=== PATIENT | male | born 1955 | race Caucasian/White ===

== ENCOUNTER 2018-09-10 12:37 | Inpatient (IN) | payer SELFPAY, MEDICAID ==
[2018-09-10 13:18] LABS: VENOUS BASE EXCESS -4.8 (-2.0-2.0); VENOUS HCO3 21.8 MEQ/L (23.0-27.0); VENOUS O2 SATURATION 53.2 % (60.0-80.0); VENOUS PARTIAL PRESSURE CO2 46.3 mmHg (38.0-50.0); VENOUS PARTIAL PRESSURE O2 31.4 mmHg (30.0-50.0); VENOUS PH 7.291 UNITS (7.330-7.430); VENOUS STANDARD HCO3 19.7 MEQ/L; VENOUS TOTAL CO2 23.2 MEQ/L (24.0-28.0)
[2018-09-10 13:26] LABS: BASO # 0.1 10^3/uL (0.0-0.2); BASO % 0.7 % (0.0-1.0); EOS % 0.1 % (0.0-3.0); HEMATOCRIT 36.5 % (42.0-52.0); HEMOGLOBIN 11.6 g/dl (13.5-17.5); IMMATURE GRANULOCYTE % 0.4 % (0-3.0); LYMPH # 0.9 10^3/uL (1.5-4.5); LYMPH % 8.5 % (24.0-44.0); MEAN CORPUSCULAR HEMOGLOBIN 31.8 pg (27.0-33.0); MEAN CORPUSCULAR HGB CONC 31.8 g/dl (32.0-36.5); MONO # 0.6 10^3/uL (0.0-0.8); MONO % 5.8 % (0.0-5.0); NEUTROPHILS # 8.6 10^3/uL (1.8-7.7); NEUTROPHILS % 84.5 % (36.0-66.0); PLATELET COUNT, AUTOMATED 255 10^3/uL (150-450); RED BLOOD COUNT 3.65 10^6/uL (4.30-6.10); RED CELL DISTRIBUTION WIDTH 14.2 % (11.5-14.5); WHITE BLOOD COUNT 10.1 10^3/uL (4.0-10.0)
[2018-09-10] MEDS: dexameTHASONE 20 MG/5 ML VIAL (J1100) IV (13:37)
[2018-09-10] MEDS: IPRATROPIUM 0.5MG/ALBUTEROL 2.5MG INH SOL UD 3ML (DUONEB)(J7620) NEB (13:37)
[2018-09-10 14:02] LABS: ALBUMIN 3.3 GM/DL (3.2-5.2); ALBUMIN/GLOBULIN RATIO 0.97 (1.00-1.93); ALKALINE PHOSPHATASE 102 U/L (45-117); ALT/SGPT 33 U/L (12-78); ANION GAP 9 MEQ/L (8-16); AST/SGOT 26 U/L (7-37); BILIRUBIN,DIRECT 0.1 MG/DL (0.0-0.2); BILIRUBIN,TOTAL 0.4 MG/DL (0.2-1.0); BLOOD UREA NITROGEN 53 MG/DL (7-18); CALCIUM LEVEL 8.8 MG/DL (8.8-10.2); CARBON DIOXIDE LEVEL 22 MEQ/L (21-32); CHLORIDE LEVEL 114 MEQ/L (98-107); CPK CREATINE PHOSPHOKINASE 477 U/L (39-308); CREATININE FOR GFR 4.14 MG/DL (0.70-1.30); GLOMERULAR FILTRATION RATE 15.6 (>49); GLUCOSE, FASTING 93 MG/DL (70-100); MB/CK RELATIVE INDEX 2.18 (< OR =4); NT-PRO BNP 89874 PG/ML (<125); POTASSIUM SERUM 5.3 MEQ/L (3.5-5.1); SODIUM LEVEL 145 MEQ/L (136-145); TOTAL PROTEIN 6.7 GM/DL (6.4-8.2); TROPONIN I 0.03 NG/ML (< 0.10)
[2018-09-10] MEDS: AZITHROMYCIN 250 MG TAB PO (15:04)
[2018-09-10] MEDS: FUROSEMIDE 40 MG/4 ML VIAL (J1940) IV (15:04)
[2018-09-10] MEDS: FUROSEMIDE 100 MG/10 ML VIAL (J1940) IV (17:09)
[2018-09-10] MEDS: ISOSORBIDE DIN. (ISORDIL) 20 MG TAB PO ×2 (17:12→23:27)
[2018-09-10] MEDS: **hydrALAZINE** 10 MG TAB PO ×2 (17:13→23:27)
[2018-09-10 18:48] LABS: BASO % 0.2 % (0.0-1.0); HEMATOCRIT 34.1 % (42.0-52.0); HEMOGLOBIN 10.9 g/dl (13.5-17.5); IMMATURE GRANULOCYTE % 0.6 % (0-3.0); LYMPH % 2.9 % (24.0-44.0); MEAN CORPUSCULAR HEMOGLOBIN 31.5 pg (27.0-33.0); MEAN CORPUSCULAR VOLUME 98.6 fl (80.0-96.0); MONO # 0.1 10^3/uL (0.0-0.8); NEUTROPHILS # 8.5 10^3/uL (1.8-7.7); NEUTROPHILS % 95.3 % (36.0-66.0); PLATELET COUNT, AUTOMATED 236 10^3/uL (150-450); RED BLOOD COUNT 3.46 10^6/uL (4.30-6.10); RED CELL DISTRIBUTION WIDTH 14.4 % (11.5-14.5); WHITE BLOOD COUNT 8.9 10^3/uL (4.0-10.0)
[2018-09-10 19:04] LABS: ESTIMATED AVERAGE GLUCOSE 97 MG/DL (60-110)
[2018-09-10 19:15] LABS: ANION GAP 10 MEQ/L (8-16); BLOOD UREA NITROGEN 55 MG/DL (7-18); CALCIUM LEVEL 8.9 MG/DL (8.8-10.2); CARBON DIOXIDE LEVEL 19 MEQ/L (21-32); CHLORIDE LEVEL 115 MEQ/L (98-107); CREATININE FOR GFR 4.12 MG/DL (0.70-1.30); GLOMERULAR FILTRATION RATE 15.7 (>49); GLUCOSE, FASTING 104 MG/DL (70-100); POTASSIUM SERUM 5.2 MEQ/L (3.5-5.1); SODIUM LEVEL 144 MEQ/L (136-145)
[2018-09-10 19:18] LABS: CHOLESTEROL LEVEL 133 MG/DL (<200); CHOLESTEROL RISK RATIO 3.325 (<5); HDL CHOLESTEROL 40 MG/DL (>40); LDL CHOLESTEROL 81 MG/DL (<100); NON-HDL-C 93 MG/DL; TRIGLYCERIDES LEVEL 59 MG/DL (<150)
[2018-09-10 19:23] LABS: TROPONIN I 0.04 NG/ML (< 0.10)
[2018-09-10 19:49] LABS: POSITIVE DIFF POS FLAG
[2018-09-10 19:50] LABS: LYMPH # 0.3 10^3/uL (1.5-4.5)
[2018-09-10] MEDS: TAMSULOSIN 0.4 MG CAP PO (20:50)
[2018-09-10 22:49] LABS: APPEARANCE, URINE HAZY (CLEAR); BACTERIA, URINE AUTO 1+ (NEGATIVE); BILIRUBIN, URINE AUTO NEGATIVE (NEGATIVE); BLOOD, URINE BLOOD 1+ (NEGATIVE); COLOR, URINE YELLOW (YELLOW); GLUCOSE, URINE (UA) AUTO NEGATIVE (NEGATIVE); KETONE, URINE AUTO NEGATIVE (NEGATIVE); LEUKOCYTE ESTERASE, URINE AUTO 2+ (NEGATIVE); MUCUS, URINE SMALL (NEGATIVE); NITRITE, URINE AUTO NEGATIVE (NEGATIVE); PROTEIN, URINE AUTO 1+ mg/dL (NEGATIVE); RBC, URINE AUTO 15 /HPF (0-3); SPECIFIC GRAVITY URINE AUTO 1.004 (1.002-1.035); SQUAMOUS EPITHELIAL CELL UR AU 0 /HPF (0-6); TRANSITIONAL EPITHELIAL AUTO <1 /HPF; UROBILINOGEN, URINE AUTO 0.2 mg/dL (0.0-2.0); WBC, URINE AUTO 38 /HPF (0-3)
[2018-09-10 23:06] LABS: CREATININE,RANDOM URINE 14.1 MG/DL
[2018-09-10 23:06] LABS: TOTAL PROTEIN,RANDOM URINE 50.6 MG/DL (0.0-12.0)
[2018-09-10] MEDS: cefTRIAXone SOD 1 GM in D5W MINI-BAG PLUS 50 ML IV (23:27)
[2018-09-11] MEDS: **hydrALAZINE** 10 MG TAB PO (06:10)
[2018-09-11] MEDS: ISOSORBIDE DIN. (ISORDIL) 20 MG TAB PO (06:11)
[2018-09-11 08:18] LABS: ANION GAP 11 MEQ/L (8-16); BLOOD UREA NITROGEN 67 MG/DL (7-18); CALCIUM LEVEL 8.5 MG/DL (8.8-10.2); CARBON DIOXIDE LEVEL 21 MEQ/L (21-32); CHLORIDE LEVEL 110 MEQ/L (98-107); CREATININE FOR GFR 4.33 MG/DL (0.70-1.30); GLOMERULAR FILTRATION RATE 14.9 (>49); GLUCOSE, FASTING 96 MG/DL (70-100); HEPATITIS B SURFACE ANTIBODY NEGATIVE (POSITIVE); HEPATITIS B SURFACE ANTIGEN NEGATIVE (NEGATIVE); POTASSIUM SERUM 5.1 MEQ/L (3.5-5.1); SODIUM LEVEL 142 MEQ/L (136-145)
[2018-09-11 08:34] LABS: HEMATOCRIT 32.7 % (42.0-52.0); HEMOGLOBIN 10.5 g/dl (13.5-17.5); MEAN CORPUSCULAR HEMOGLOBIN 31.5 pg (27.0-33.0); MEAN CORPUSCULAR HGB CONC 32.1 g/dl (32.0-36.5); MEAN CORPUSCULAR VOLUME 98.2 fl (80.0-96.0); PLATELET COUNT, AUTOMATED 228 10^3/uL (150-450); RED BLOOD COUNT 3.33 10^6/uL (4.30-6.10); RED CELL DISTRIBUTION WIDTH 14.1 % (11.5-14.5); WHITE BLOOD COUNT 10.3 10^3/uL (4.0-10.0)
[2018-09-11 08:36] LABS: HEPATITIS B CORE ANTIBODY IGM NEGATIVE (NEGATIVE); HEPATITIS C VIRUS ABY INDEX 0.1 INDEX (<0.8)
[2018-09-11] MEDS: AZITHROMYCIN 250 MG TAB PO (08:39)
[2018-09-11] MEDS ORDERED: FUROSEMIDE 40 MG/4 ML VIAL (J1940) IV (09:00)
[2018-09-11 12:33] LABS: FERRITIN 195 NG/ML (26-388); IRON (FE) 21 UG/DL (65-175); PERCENT SATURATION 10.7 % (19.7-50.0); TOTAL IRON BINDING CAPACITY 197 UG/DL (250-450)
[2018-09-11] MEDS: FERROUS GLUCONATE 324 MG TAB PO (14:27)
[2018-09-11] MEDS: TAMSULOSIN 0.4 MG CAP PO (20:21)
[2018-09-11] MEDS: cefTRIAXone SOD 1 GM in D5W MINI-BAG PLUS 50 ML IV (20:21)
[2018-09-12 05:55] LABS: HEMATOCRIT 33.7 % (42.0-52.0); HEMOGLOBIN 10.8 g/dl (13.5-17.5); MEAN CORPUSCULAR HEMOGLOBIN 30.8 pg (27.0-33.0); PLATELET COUNT, AUTOMATED 235 10^3/uL (150-450); RED BLOOD COUNT 3.51 10^6/uL (4.30-6.10); RED CELL DISTRIBUTION WIDTH 13.9 % (11.5-14.5); WHITE BLOOD COUNT 8.9 10^3/uL (4.0-10.0)
[2018-09-12 06:13] LABS: ANION GAP 10 MEQ/L (8-16); BLOOD UREA NITROGEN 71 MG/DL (7-18); CALCIUM LEVEL 8.5 MG/DL (8.8-10.2); CARBON DIOXIDE LEVEL 21 MEQ/L (21-32); CHLORIDE LEVEL 111 MEQ/L (98-107); CREATININE FOR GFR 4.19 MG/DL (0.70-1.30); GLOMERULAR FILTRATION RATE 15.4 (>49); GLUCOSE, FASTING 79 MG/DL (70-100); POTASSIUM SERUM 4.6 MEQ/L (3.5-5.1); SODIUM LEVEL 142 MEQ/L (136-145)
[2018-09-12 08:06] LABS: HEPATITIS B CORE ANTIBODY IGG Negative (Negative)
[2018-09-12] MEDS: FERROUS GLUCONATE 324 MG TAB PO (08:54)
[2018-09-12] MEDS: FLUBLOK(EGG FREE)(QUAD)INFLUENZA VACC 0.5ML SYRINGE (90682)18YRS&OLDER IM (08:55)
[2018-09-12] MEDS ORDERED: INFLUENZA VIRUS VACCINE HIGH DOSE 0.5 ML SYRINGE (90662) IM (09:00)
[2018-09-12] MEDS: CARVedilol 3.125 MG TAB PO ×2 (10:31→20:31)
[2018-09-12 11:17] LABS: TOTAL PROTEIN 6.1 GM/DL (6.4-8.2)
[2018-09-12 11:25] LABS: FOLATE 14.3 NG/ML (>5.4); VITAMIN B12 LEVEL 249 PG/ML (247-911)
[2018-09-12] MEDS: HEPARIN SOD (PORCINE) 5000 UNITS/ML VIAL SQ ×2 (13:45→20:31)
[2018-09-12] MEDS: TAMSULOSIN 0.4 MG CAP PO (20:31)
[2018-09-12] MEDS: cefTRIAXone SOD 1 GM in D5W MINI-BAG PLUS 50 ML IV (20:31)
[2018-09-13] MEDS: ACETAMINOPHEN 500 MG TAB PO (04:30)
[2018-09-13 06:02] LABS: HEMATOCRIT 35.1 % (42.0-52.0); HEMOGLOBIN 11.4 g/dl (13.5-17.5); MEAN CORPUSCULAR HEMOGLOBIN 31.5 pg (27.0-33.0); MEAN CORPUSCULAR HGB CONC 32.5 g/dl (32.0-36.5); PLATELET COUNT, AUTOMATED 248 10^3/uL (150-450); RED BLOOD COUNT 3.62 10^6/uL (4.30-6.10); RED CELL DISTRIBUTION WIDTH 13.7 % (11.5-14.5); WHITE BLOOD COUNT 7.4 10^3/uL (4.0-10.0)
[2018-09-13 06:27] LABS: ANION GAP 9 MEQ/L (8-16); BLOOD UREA NITROGEN 67 MG/DL (7-18); CALCIUM LEVEL 8.4 MG/DL (8.8-10.2); CARBON DIOXIDE LEVEL 21 MEQ/L (21-32); CHLORIDE LEVEL 109 MEQ/L (98-107); CREATININE FOR GFR 3.86 MG/DL (0.70-1.30); GLUCOSE, FASTING 83 MG/DL (70-100); POTASSIUM SERUM 4.7 MEQ/L (3.5-5.1); SODIUM LEVEL 139 MEQ/L (136-145)
[2018-09-13] MEDS: CARVedilol 3.125 MG TAB PO (08:07)
[2018-09-13] MEDS: FERROUS GLUCONATE 324 MG TAB PO (08:07)
[2018-09-13] MEDS: HEPARIN SOD (PORCINE) 5000 UNITS/ML VIAL SQ (08:08)
[2018-09-13] MEDS ORDERED: SLF 3 ML SYR IV ×2 (11:00→14:00)
[2018-09-13 11:59] LABS: ALBUMIN 3.36 GM/DL (3.29-5.55); ALPHA-1-GLOBULIN % 7.5 % (2.9-4.9); ALPHA-1-GLOBULINS 0.46 GM/DL (0.17-0.41); ALPHA-2-GLOBULINS 0.92 GM/DL (0.42-0.99); BETA-1-GLOBULINS % 4.7 % (4.7-7.2); BETA-2-GLOBULINS % 4.9 % (3.2-6.5); GAMMA GLOBULIN % 12.9 % (11.1-18.8)
[2018-09-13 12:00] LABS: BETA-1-GLOBULINS 0.29 GM/DL (0.28-0.60); GAMMA GLOBULINS 0.79 GM/DL (0.65-1.58)
[2018-09-13 14:14] LABS: PSA TOTAL 1.1 ng/mL (0.0-4.0)
== END 2018-09-13 15:00 | disposition home or self-care (01) | DRG 460 ==
LOC: M ED 12:37 → M ED INP 15:14 → M PCU 17:01
DX: N17.9 Acute kidney failure, unspecified (principal); I50.21 Acute systolic (congestive) heart failure; I42.0 Dilated cardiomyopathy; E87.5 Hyperkalemia; I13.0 Hypertensive heart and chronic kidney disease with heart failure and stage 1 through stage 4 chronic kidney disease, or unspecified chronic kidney disease; N40.1 Benign prostatic hyperplasia with lower urinary tract symptoms; R33.9 Retention of urine, unspecified; N47.2 Paraphimosis; D63.1 Anemia in chronic kidney disease; Z79.899 Other long term (current) drug therapy; B97.29 Other coronavirus as the cause of diseases classified elsewhere; I44.7 Left bundle-branch block, unspecified; N13.30 Unspecified hydronephrosis

== ENCOUNTER → 2018-09-25 | Outpatient (CLI) | payer MEDICAID ==
[~2018-09-25] MED LIST: CARV3.12 PO; FERR32TA PO; FLOM0.4C39 PO; HYDR100T PO; HYDR10TAB PO; MUCI600T31 PO; ROCA0.25 PO; VITA-112 PO; VITA100054 PO
[2018-09-25 18:15] LABS: BASO # 0.1 10^3/uL (0.0-0.2); BASO % 0.7 % (0.0-1.0); EOS # 0.2 10^3/uL (0.0-0.50); EOS % 1.5 % (0.0-3.0); HEMATOCRIT 36.4 % (42.0-52.0); HEMOGLOBIN 11.5 g/dl (13.5-17.5); LYMPH # 1.5 10^3/uL (1.5-4.5); LYMPH % 13.6 % (24.0-44.0); MEAN CORPUSCULAR HEMOGLOBIN 31.6 pg (27.0-33.0); MEAN CORPUSCULAR HGB CONC 31.6 g/dl (32.0-36.5); MONO # 0.7 10^3/uL (0.0-0.8); MONO % 6.1 % (0.0-5.0); NEUTROPHILS # 8.3 10^3/uL (1.8-7.7); NEUTROPHILS % 77.8 % (36.0-66.0); PLATELET COUNT, AUTOMATED 351 10^3/uL (150-450); RED BLOOD COUNT 3.64 10^6/uL (4.30-6.10); WHITE BLOOD COUNT 10.7 10^3/uL (4.0-10.0)
[2018-09-25 18:17] LABS: INR 0.95; PROTHROMBIN TIME 12.7 SECONDS (12.1-14.4)
[2018-09-25 18:18] LABS: PARTIAL THROMBOPLASTIN TIME 36.9 SECONDS (25.4-37.6)
[2018-09-25 18:19] LABS: ALBUMIN 3.6 GM/DL (3.2-5.2); BILIRUBIN,TOTAL 0.3 MG/DL (0.2-1.0); CALCIUM LEVEL 9.1 MG/DL (8.8-10.2); CREATININE FOR GFR 3.78 MG/DL (0.70-1.30); GLOMERULAR FILTRATION RATE 17.4 (>49); POTASSIUM SERUM 6.6 MEQ/L (3.5-5.1)
== END ==
LOC: M SMT 12:58
PROVIDERS: ATTEND Urology Pediatric Urology
DX: N32.89 Other specified disorders of bladder (principal)

== ENCOUNTER → 2018-09-25 | Outpatient (REF) | payer MEDICAID | LOC: M LABSMT 13:28 | PROVIDERS: ATTEND Urology Pediatric Urology | DX: N32.89 Other specified disorders of bladder (principal) ==

== ENCOUNTER 2018-09-26 13:14 | Emergency (ER) | payer MEDICAID ==
[~2018-09-26] VITALS: Ht 167.6 cm; Wt 61.2 kg
[~2018-09-26 13:14] MED LIST changes: -HYDR100T PO; -HYDR10TAB PO; -ROCA0.25 PO; -VITA-112 PO; -VITA100054 PO
[2018-09-26] MEDS ORDERED: NS 1,000 ML IV SCH (13:29)
[2018-09-26] MEDS ORDERED: VITA100054 PO (13:54)
[2018-09-26] MEDS ORDERED: HYDR100T PO (13:54)
[2018-09-26 14:06] LABS: BASO # 0.1 10^3/uL (0.0-0.2); BASO % 0.7 % (0.0-1.0); EOS # 0.2 10^3/uL (0.0-0.50); EOS % 3.5 % (0.0-3.0); HEMATOCRIT 32.9 % (42.0-52.0); HEMOGLOBIN 10.8 g/dl (13.5-17.5); LYMPH # 1.3 10^3/uL (1.5-4.5); LYMPH % 18.3 % (24.0-44.0); MEAN CORPUSCULAR HEMOGLOBIN 32.5 pg (27.0-33.0); MEAN CORPUSCULAR HGB CONC 32.8 g/dl (32.0-36.5); MEAN CORPUSCULAR VOLUME 99.1 fl (80.0-96.0); MONO # 0.5 10^3/uL (0.0-0.8); MONO % 6.6 % (0.0-5.0); NEUTROPHILS # 4.9 10^3/uL (1.8-7.7); NEUTROPHILS % 70.6 % (36.0-66.0); PLATELET COUNT, AUTOMATED 281 10^3/uL (150-450); RED BLOOD COUNT 3.32 10^6/uL (4.30-6.10); WHITE BLOOD COUNT 6.9 10^3/uL (4.0-10.0)
[2018-09-26] MEDS ORDERED: HYDR10TAB PO (14:12)
[2018-09-26] MEDS ORDERED: VITA-112 PO (14:12)
[2018-09-26] MEDS ORDERED: ROCA0.25 PO (14:12)
[2018-09-26 14:33] LABS: CALCIUM LEVEL 8.5 MG/DL (8.8-10.2); CREATININE FOR GFR 4.06 MG/DL (0.70-1.30); POTASSIUM SERUM 5.1 MEQ/L (3.5-5.1)
[2018-09-26] MEDS ORDERED: PATIROMER SORBITEX CALCIUM 8.4 GM POWDER PACKET (VELTASSA) PO ONE (15:15)
[2018-09-26 15:49] VITALS: BP 172/96
[2018-09-27] MEDS ORDERED: PATIROMER SORBITEX CALCIUM 8.4 GM POWDER PACKET (VELTASSA) PO SCH (12:00)
--- NOTE | 2018-09-27 13:54 | ECGEPIP ---
Stationary ECG Study [facility] - ED Test Date: 2018-09-26 Pat Name: MARY WONG Department: Room: - Gender: M Dope Pourer: : 1955 Requested By: CIARA Santiago Order Number: [id number] Reading MD: Kyara Cardenas Measurements Intervals [place] Rate: 65 P: 73 [place]: 188 QRS: 79 QRSD: 153 T: 262 QT: 470 QTc: 490 Interpretive Statements SINUS RHYTHM LEFT BUNDLE BRANCH BLOCK DECREASED RATE 09/10/18 Electronically Signed On 09-27-2018 13:54:43 EST by Kyara Cardenas
== END 2018-09-26 15:51 | disposition home or self-care (01) ==
LOC: M ED 13:14
DX: E87.5 Hyperkalemia (principal); I44.7 Left bundle-branch block, unspecified; I50.9 Heart failure, unspecified; N40.0 Benign prostatic hyperplasia without lower urinary tract symptoms; D64.9 Anemia, unspecified; I42.0 Dilated cardiomyopathy; Z72.0 Tobacco use; Z79.899 Other long term (current) drug therapy

== ENCOUNTER → 2018-09-30 | Outpatient (CLI) | payer MEDICAID ==
[~2018-09-30] MED LIST changes: +HYDR100T PO; +HYDR10TAB PO; +ROCA0.25 PO; +VITA-112 PO; +VITA100054 PO
--- NOTE | 2018-09-30 16:27 | REP ---
RENAL ULTRASOUND: HISTORY: Renal failure. COMPARISON: 09/10/2018. The kidneys are normal in echogenicity. The right kidney measures 4.5 cm in transverse x 3.2 cm in AP x 8.7 cm in cephalocaudal dimensions. The left kidney measures 4.1 cm in transverse x 4.4 cm in AP x 7.3 cm in cephalocaudal dimensions. There is bilateral severe hydronephrosis. There is bilateral mild hydroureter. There is no mass. The bladder wall is thickened with trabeculations. Debris is present in the bladder. Bladder diverticula are present. Pre void volume is 255 cubic centimeters. Postvoid volume is 248 cubic centimeters. IMPRESSION: 1. Bilateral hydronephrosis and hydroureter. 2. The urinary bladder wall is thickened and trabeculated. Debris is present in the urinary bladder. Electronically Signed by Garfield Lopez MD 09/30/2018 04:28 P
== END ==
LOC: M RAD 12:51
PROVIDERS: ATTEND Urology Pediatric Urology
DX: N32.89 Other specified disorders of bladder (principal); N32.3 Diverticulum of bladder; N47.1 Phimosis; N47.2 Paraphimosis; R33.9 Retention of urine, unspecified; N17.9 Acute kidney failure, unspecified; N18.4 Chronic kidney disease, stage 4 (severe); N13.30 Unspecified hydronephrosis

== ENCOUNTER → 2018-10-04 | Outpatient (CLI) | payer MEDICAID ==
[~2018-10-04] MED LIST changes: +FUROSEMIDE 20 MG/2 ML VIAL (J1940) As Ordered ONE
--- NOTE | 2018-10-04 16:43 | REP ---
Nuclear renal scintigraphy with differential flow and function analysis and post Lasix renography: History: Renal failure. Bilateral hydronephrosis. Technique: 8.8 mCi technetium 99m MAG3 is injected and posterior flow and excretory phase images are acquired. Renal cortical regions of interest are drawn and time activity curves are plotted for renal functional analysis. 20 mg of intravenous Lasix is given and post Lasix renography is acquired. Scintigraphic findings: Posterior flow study shows symmetrically poor visualization of the renal beds consistent with drawn out bolus and/or delayed perfusion bilaterally. Excretory phase images show symmetric heterogeneous renal uptake. The intrarenal collecting systems begin to label on the 2 to 3 minute images bilaterally and bilateral hydronephrosis is confirmed on subsequent images. Differential renal function analysis is essentially normal with 54% of overall renal cortical counts coming from the left kidney and 46% from the right. The time to peak activity is abnormal bilaterally consistent with the bilateral hydronephrosis, measured at 29 minutes on the left and 28 minutes on the right. Time to half max activity could not be calculated as the renal excretion curves are rising bilaterally. Post Lasix renography curves are bilaterally flat. The ureters are faintly visualized and appear dilated. There is uptake in the bladder. Postvoid images show retained bladder uptake consistent with postvoid residual. Dilated distal ureters. Impression: Bilateral hydronephrosis with a somewhat delayed or sluggish perfusion bilaterally. Lack of clearance post Lasix confirms obstructive uropathy bilaterally. Pre and postvoid images show no significant bladder emptying. Electronically Signed by Rodolfo Hicks MD 10/04/2018 08:02 P
== END ==
LOC: M RAD 12:30
PROVIDERS: ATTEND Urology Pediatric Urology
DX: N18.9 Chronic kidney disease, unspecified (principal); N13.30 Unspecified hydronephrosis

== ENCOUNTER 2018-10-07 08:53 | Outpatient (CLI) | payer MEDICAID ==
[~2018-10-07 08:53] MED LIST changes: -FUROSEMIDE 20 MG/2 ML VIAL (J1940) As Ordered ONE
[2018-10-07] MEDS ORDERED: cefTRIAXone SOD 1 GM VIAL (J0696) As Ordered ONE (10:12)
[2018-10-07] MEDS ORDERED: LIDOCAINE 1% MDV 20ML VIAL As Ordered ONE (10:12)
[2018-10-07] MEDS ORDERED: ISOVUE-300 61% 50ML VIAL (Q9967) As Ordered ONE (10:13)
[2018-10-07] MEDS ORDERED: MIDAZOLAM INJ 2 MG/2 ML VIAL (J2250) As Ordered ONE (10:15)
[2018-10-07] MEDS ORDERED: fentaNYL 100 MCG/2 ML INJECTION (J3010) As Ordered ONE (10:15)
[2018-10-07 10:24] LABS: CALCIUM LEVEL 7.8 MG/DL (8.8-10.2); CREATININE FOR GFR 5.32 MG/DL (0.70-1.30); GLOMERULAR FILTRATION RATE 11.7 (>49); POTASSIUM SERUM 4.4 MEQ/L (3.5-5.1)
[2018-10-07] MEDS ORDERED: ONDANSETRON 4MG/2ML VIAL (J2405) IV PRN (12:00)
[2018-10-07] MEDS ORDERED: LR 1,000 ML IV SCH (12:00)
[2018-10-07] MEDS ORDERED: fentaNYL 100 MCG/2 ML INJECTION (J3010) IV PRN (12:00)
[2018-10-07] MEDS ORDERED: PERCOCET 5MG/325MG TAB PO PRN (12:00)
[2018-10-07 12:13] VITALS: BP 160/77
--- NOTE | 2018-10-07 19:12 | REP ---
BILATERAL NEPHROSTOMY DRAINAGE CATHETER INSERTION Procedure was performed under the direct supervision of Dr. Hicks. The patient has a history of bilateral hydronephrosis and hydroureter seen on a previous renal ultrasound dated 09/30/2017. The risks and benefits of the procedure were explained to the patient and informed consent was obtained. Medication: 1 gram of Rocephin Anesthetic: 9 ml of 1% lidocaine Estimated blood loss: Less than 2 ml Fluoroscopy time: 4.5 minutes Contrast: 25 ml of Isovue 300 Anesthesia was present throughout the case for sedation and pain control. The patient was brought into the interventional suite and placed on the table in the prone position. A time out was performed. The right and left renal collecting systems were localized using ultrasound guidance. The skin was prepped and draped in a sterile fashion. 1% lidocaine was used as a local anesthetic. The right kidney was addressed first. The right renal collecting system was localized using ultrasound guidance. Using ultrasound guidance a 21-gauge needle was inserted and advanced into the collecting system.. A nephrostogram was performed. A 0.018 guidewire was inserted and advanced into the renal pelvis. The needle was removed and a 4.5 Tongan dilator and sheath was inserted over the guide wire. 10 ml of urine was withdrawn and sent to the lab for analysis. The guidewire was removed and a 0.035 guidewire was inserted and advanced into the ureter. The sheath was removed and an 8-Tongan Skater APDL catheter was inserted. The loop of the catheter was formed in the renal pelvis. A nephrostogram was again performed. Images demonstrate no evidence of mass or filling defect. The ureter is seen to the level of the vascular crossing. The distal third of the ureter is not opacified. There is dilation of the proximal and mid ureter. The left kidney was then addressed. The left renal collecting system was localized using ultrasound guidance. Using ultrasound guidance a 21-gauge needle was inserted and advanced into the collecting system. 5 ml of urine was collected and sent to the lab for analysis. A nephrostogram was performed. A 0.018 guide wire was inserted and advanced into the renal pelvis. The needle was removed and a 4.5 Tongan dilator and sheath was inserted over the guide wire. The guidewire was removed and a 0.035 guidewire was inserted into the collecting system. The sheath was removed and an 8-Tongan Skater APDL catheter was inserted over the guide wire. The loop of the catheter was formed in the renal pelvis. A nephrostogram was again performed. Images demonstrate no evidence of mass or filling defect. The ureter is seen to the level of the vascular crossing. The distal third of the ureter is not opacified. There is dilation of the proximal and mid ureter. The catheters were affixed to the skin and attached to a gravity drainage bags. Sterile dressings were applied. The patient tolerated the procedure well and there were no immediate complications. The patient will return for exchange of bilateral nephrostomy drainage catheters in 8 - 10 weeks or sooner if needed. Reviewed by JESSICA Ordaz 10/07/2018 04:22 P Electronically Signed by Rodolfo Hicks MD 10/07/2018 07:04 P
== END 2018-10-07 12:35 | disposition home or self-care (01) ==
LOC: M RADPRO 08:53
PROVIDERS: ATTEND Urology Pediatric Urology
DX: N13.30 Unspecified hydronephrosis (principal); I11.0 Hypertensive heart disease with heart failure; N18.9 Chronic kidney disease, unspecified
CPT/HCPCS: 50432; 76000; 76942; 80048; 87070; 87075; 87077; 87186; 87205; 99156; 99157; C1729; C1769; C1894; J0696; J2250; J3010; Q9967

== ENCOUNTER → 2018-10-08 | Outpatient (CLI) | payer MEDICAID ==
[~2018-10-08] MED LIST changes: +CYSTO-CONRAY II 17.2% 250ML VIAL (Q9958) As Ordered ONE
--- NOTE | 2018-10-08 17:03 | REP ---
VCUG. History: Bilateral hydronephrosis. The patient is status post bilateral percutaneous nephrostomy tube placement the previous day. Technique: The bladder was catheterized using aseptic precautions and standard technique. The bladder was filled with Cysto-Conray with a total volume of 350 mL. Multiple fluoroscopic spot radiographs were obtained. Findings: The bladder is severely trabeculated and there are multiple bladder diverticula, the largest of which is on the right. The bladder base is elevated consistent with prostate enlargement. Bilateral vesicoureteral reflux was observed, grade 1 on the right and grade 2 on the left. The left distal ureter is moderately dilated. Bilateral percutaneous nephrostomy catheters are seen. No filling defect is seen within the urinary bladder. Voiding cystourethrogram views show no urethral abnormality other than diffuse narrowing in the prostatic urethral segment. Fluoroscopy time is 0.4 minutes. Impression: Bilateral vesicoureteral reflux with elevation of the distal ureters bilaterally. Severely trabeculated bladder wall and elevated bladder base. Bladder diverticula. Electronically Signed by Rodolfo Hicks MD 10/08/2018 05:40 P
== END ==
LOC: M RADPRO 12:52
PROVIDERS: ATTEND Urology Pediatric Urology
DX: N32.89 Other specified disorders of bladder (principal); N32.3 Diverticulum of bladder; N47.1 Phimosis; N47.2 Paraphimosis; R33.9 Retention of urine, unspecified; N17.9 Acute kidney failure, unspecified; N18.4 Chronic kidney disease, stage 4 (severe); N39.8 Other specified disorders of urinary system
CPT/HCPCS: 51600; 74455; Q9958

== ENCOUNTER → 2018-10-15 | Outpatient (REF) | payer MEDICAID ==
[~2018-10-15] MED LIST changes: -CYSTO-CONRAY II 17.2% 250ML VIAL (Q9958) As Ordered ONE; +SODI200S PO
[2018-10-15 16:38] LABS: ALBUMIN 3.6 GM/DL (3.2-5.2); CREATININE FOR GFR 4.71 MG/DL (0.70-1.30); GLOMERULAR FILTRATION RATE 13.5 (>49); MAGNESIUM LEVEL 2.4 MG/DL (1.8-2.4); PHOSPHORUS LEVEL 4.9 MG/DL (2.5-4.9); POTASSIUM SERUM 5.6 MEQ/L (3.5-5.1); URIC ACID 5.6 MG/DL (3.5-7.2)
[2018-10-15 17:56] LABS: APPEARANCE, URINE CLEAR (CLEAR); BACTERIA, URINE AUTO 1+ (NEGATIVE); BILIRUBIN, URINE AUTO NEGATIVE (NEGATIVE); BLOOD, URINE BLOOD NEGATIVE (NEGATIVE); COLOR, URINE STRAW (YELLOW); GLUCOSE, URINE (UA) AUTO NEGATIVE (NEGATIVE); KETONE, URINE AUTO NEGATIVE (NEGATIVE); LEUKOCYTE ESTERASE, URINE AUTO 2+ (NEGATIVE); NITRITE, URINE AUTO NEGATIVE (NEGATIVE); PROTEIN, URINE AUTO 1+ mg/dL (NEGATIVE); RBC, URINE AUTO 2 /HPF (0-3); SPECIFIC GRAVITY URINE AUTO 1.009 (1.002-1.035); SQUAMOUS EPITHELIAL CELL UR AU 0 /HPF (0-6); UROBILINOGEN, URINE AUTO 0.2 mg/dL (0.0-2.0); WBC, URINE AUTO 8 /HPF (0-3)
[2018-10-15 18:16] LABS: BASO # 0.1 10^3/uL (0.0-0.2); BASO % 0.8 % (0.0-1.0); EOS # 0.4 10^3/uL (0.0-0.50); HEMATOCRIT 34.8 % (42.0-52.0); LYMPH # 1.8 10^3/uL (1.5-4.5); LYMPH % 19.3 % (24.0-44.0); MEAN CORPUSCULAR HEMOGLOBIN 31.9 pg (27.0-33.0); MEAN CORPUSCULAR HGB CONC 31.6 g/dl (32.0-36.5); MEAN CORPUSCULAR VOLUME 100.9 fl (80.0-96.0); MONO # 0.6 10^3/uL (0.0-0.8); MONO % 6.1 % (0.0-5.0); NEUTROPHILS # 6.5 10^3/uL (1.8-7.7); PLATELET COUNT, AUTOMATED 299 10^3/uL (150-450); RED BLOOD COUNT 3.45 10^6/uL (4.30-6.10); WHITE BLOOD COUNT 9.4 10^3/uL (4.0-10.0)
== END ==
LOC: M LABDRAW1 15:53
PROVIDERS: ATTEND Internal Medicine Nephrology
DX: N18.4 Chronic kidney disease, stage 4 (severe) (principal); D50.9 Iron deficiency anemia, unspecified

== ENCOUNTER → 2018-10-16 | Outpatient (REF) | payer MEDICAID, OTHER ==
[2018-10-16 16:11] LABS: BASO # 0.1 10^3/uL (0.0-0.2); BASO % 0.7 % (0.0-1.0); EOS # 0.4 10^3/uL (0.0-0.50); HEMATOCRIT 36.7 % (42.0-52.0); HEMOGLOBIN 12.1 g/dl (13.5-17.5); LYMPH # 1.9 10^3/uL (1.5-4.5); MEAN CORPUSCULAR HEMOGLOBIN 32.4 pg (27.0-33.0); MEAN CORPUSCULAR VOLUME 98.4 fl (80.0-96.0); MONO # 0.6 10^3/uL (0.0-0.8); MONO % 6.1 % (0.0-5.0); NEUTROPHILS % 69.6 % (36.0-66.0); PLATELET COUNT, AUTOMATED 336 10^3/uL (150-450); RED BLOOD COUNT 3.73 10^6/uL (4.30-6.10); WHITE BLOOD COUNT 10.1 10^3/uL (4.0-10.0)
[2018-10-16 16:40] LABS: ALBUMIN 3.6 GM/DL (3.2-5.2); BILIRUBIN,TOTAL 0.3 MG/DL (0.2-1.0); CALCIUM LEVEL 8.6 MG/DL (8.8-10.2); CREATININE FOR GFR 4.54 MG/DL (0.70-1.30); GLOMERULAR FILTRATION RATE 14.1 (>49); POTASSIUM SERUM 5.4 MEQ/L (3.5-5.1); TOTAL PROTEIN 7.1 GM/DL (6.4-8.2)
[2018-10-16 16:45] LABS: PTH INTACT 112.3 PG/ML (18.5-88.0)
== END ==
LOC: M SMT 15:37
PROVIDERS: ATTEND Urology Pediatric Urology
DX: N17.9 Acute kidney failure, unspecified (principal); N18.4 Chronic kidney disease, stage 4 (severe)

== ENCOUNTER 2018-11-05 07:27 | Day surgery (SDC) | payer MEDICAID, OTHER ==
[~2018-11-05] VITALS: Ht 167.6 cm; Wt 65.0 kg
[~2018-11-05 07:27] MED LIST changes: +CIPROFLOXACIN 400 MG in APPROPRIATE DILUENT 1 EA IV ONE; +GENTAMICIN 100 MG in APPROPRIATE DILUENT 1 EA IV ONE; +LR 1,000 ML IV ONE; +PIPERACILLIN/TAZOBACTAM SOD 3.375 GM in D5W MINI-BAG PLUS 50 ML IV SCH
[2018-11-05] MEDS ORDERED: GENTAMICIN 100 MG in APPROPRIATE DILUENT 1 EA IV ONE (08:15)
[2018-11-05] MEDS ORDERED: CIPROFLOXACIN 400 MG in APPROPRIATE DILUENT 1 EA IV ONE (08:15)
[2018-11-05] MEDS ORDERED: BACITRACIN OINT 30GM As Ordered ONE (09:08)
[2018-11-05] MEDS ORDERED: CONRAY-60 60% 50ML VIAL (Q9961) As Ordered ONE ×3 (09:08→10:35)
[2018-11-05] MEDS ORDERED: LIDOCAINE 2% 5ML JELLY UROJET As Ordered ONE ×2 (09:09→09:10)
[2018-11-05] MEDS ORDERED: METHYLENE BLUE 0.5% (5MG/ML) 10 ML AMP (PROVAYBLUE)(Q9968 PER 1MG) As Ordered ONE (09:48)
[2018-11-05] MEDS ORDERED: CYSTO-CONRAY II 17.2% 250ML VIAL (Q9958) As Ordered ONE (10:38)
[2018-11-05] MEDS ORDERED: HYDROmorphone HCL 2 MG/ML 1ML VIAL (J1170) As Ordered ONE (11:36)
[2018-11-05] MEDS ORDERED: fentaNYL 100 MCG/2 ML INJECTION (J3010) As Ordered ONE (11:36)
[2018-11-05] MEDS ORDERED: MIDAZOLAM INJ 2 MG/2 ML VIAL (J2250) As Ordered ONE (11:37)
[2018-11-05] MEDS ORDERED: LIDOCAINE 1% SDV INJ 30 ML VIAL As Ordered ONE (11:50)
[2018-11-05] MEDS ORDERED: SUGAMMADEX SODIUM 500 MG/5 ML VIAL (BRIDION) As Ordered ONE (12:09)
[2018-11-05] MEDS ORDERED: PROPOFOL 200 MG/20 ML VIAL As Ordered ONE (12:10)
--- NOTE | 2018-11-05 12:35 | REP ---
Retrograde pyelogram: A series of nine intraoperative fluoroscopic views are performed during bilateral ureteral stent placement. There are bilateral percutaneous nephrostomies. After placement of the right ureteral stent the proximal and distal pigtails are in satisfactory locations. Film #8 shows the left t ureteral stent with the distal pigtail in satisfactory location. The proximal pigtail appears to be in the proximal left ureter. Film #9 demonstrates the left nephrostomy tube has been removed. Fluoroscopic exposure time is 30 seconds. Fluoroscopic images are performed with last image hold technology and require no additional radiation. Electronically Signed by Isidoro Orantes MD 11/05/2018 12:27 P
[2018-11-05] MEDS ORDERED: CIPR-249 PO (13:10)
[2018-11-05] MEDS ORDERED: TYLE500T78 PO (13:10)
[2018-11-05] MEDS ORDERED: OXYB5TAB10 PO (13:10)
[2018-11-05 15:15] VITALS: BP 159/76
--- NOTE | 2018-11-06 02:35 | REP ---
Clinical: Urinary tract stent. Technique: Single supine view of the abdomen and pelvis. Findings: Bilateral ureteral stents are identified in seemingly satisfactory position. Nephrolithiasis (left greater than right) suggested. Bowel gas pattern is nonspecific. Skeletal structures demonstrate degenerative changes of the visualized thoracolumbar spine. Impression: Bilateral ureteral stents. Nephrolithiasis. Electronically Signed by Luisito Hoffmann MD 11/06/2018 02:26 A
--- NOTE | 2018-11-12 19:12 | ROOPDOC ---
[facility] Report Of Operation Report of Operation DATE OF PROCEDURE: 11/05/18 PREPROCEDURE DIAGNOSES: BILATERAL HYDROURETERAL NEPHROSIS WITH BILATERAL STENT; ENLARGED PROSTATE; PHIMOSIS; TORTUOSITY OF THE URETER. POSTPROCEDURE DIAGNOSES:MEATAL STENOSIS; S/P BILATERAL STENT PLACEMENT (7 X 22- 32CM ON RIGHT) AND (6X 22-30CM ON LEFT); 24F CREATED GRAYLING PLACEMENT VARMA TO GRAVITY;BUTTON TURP; CIRCUMCISION. PROCEDURE: BILATERAL STENT PLACEMENT (7 X 22-32CM ON RIGHT) AND (6X 22-30CM ON LEFT); 24F CREATED GRAYLING PLACEMENT VARMA TO GRAVITY;BUTTON TURPUSING 24F RESECTOSCOPE; CIRCUMCISION. CYSTOSCOPY RETROGRADE PYELOGRAM BILATERALLY; LEFT ANTEGRADE NEPHROSTOGRAM. SURGEON: KEILA CUTLER MD MPH NIRMAL ANESTHESIA: GET. ESTIMATED BLOOD LOSS: Approximately <30 mL. COMPLICATIONS: NONE. REMARKS: TRABECULATED BLADDER (SEVERELY); RIGHT URETERAL ORIFICE GAPING; LEFT URETERAL ORIFICE IS STENOTIC AND TORTUOUS; DILATED URETER; LEFT UPJ TORTUOSITY. SPECIMEN: PROSTATE TISSUE; URINE FOR CULTURE (BLADDER) DESCRIPTION OF PROCEDURE: AFTER INFORMED CONSENT PT WAS TAKEN TO THE OPERATING ROOM AT WHICH POINT THE ROUTINE TIME OUT WAS COMPLETED. THE PATIENT WAS PLACED IN THE LITHOTOMY POSITION. 24F RESECTOSCOPE WAS PLACED IN THE URETHRA AFTER MEATAL DILATION WITH MALE SOUNDS. THE RESECTOSCOPE WAS USED TO COMPLETE A LOOP/BUTTON TURP, FIRST WITH LEFT LATERAL LOBE THEN, RIGHT LATERAL LOBE AND THEN MIDDLE LOBE. FIRST WITH LOOP AND THEN BUTTON TO SMOOTH OUT THE TISSUE. A 21 F CYSTOSCOPE WAS EXCHANGED AND RIGHT URETERAL ORIFICE WAS WIDE OPEN AND POLLACK WAS PLACED RETROGRADE WAS PERFORMED THEN THE MOTION WIRE. A 7X 22-32CM STENT WAS PLACED OVER THE WIRE IN EXCHANGE FOR THE POLLAC AND ADVANCE WITHOUT PROBLEMS. THE LEFT URETERAL ORIFICE WAS MORE CHALLENGING TO SEE AND COULD ONLY BE SEEING AFTER CYSTOCONRAY HAD BLUE DYE PLACED IN THE BOTTLE AND TO GRAVITY DRAINED FROM THE NEPHROSTOMY SITE TO THE RENAL PELVIS, URETER AND THE BLADDER. THEN THE 24F [address] 10ML GRAYLING (CREATED BY CUTTING THE TIP MINUS THE BALLOON). THE VARMA DRAINED BLUE DYE AND CONTRAST. THE BLUE DYE WAS DIRECTLY VISUALIZED AND THE FLOUROSCOPY EVALUATION SHOWS THE RENAL PELVIS URETER AND BLADDER WITH CONTRAST USING ANTEGRADE NEPHROSTOGRAM DESCRIBED ABOVE. THE PATIENT WAS REPREPPED AND DRAPED FOR CIRCUMCISION. TWO CLAMPS WERE PLACED ON THE IRRITATED SKIN AND CAUTERY AT 30 CUTTING WAS USE TO CUT DORSAL LENGTH TRIPP AND CIRCUMFERENTIALLY DORSAL TO VENTRAL. HEMOSTASIS WAS ACHIEVED. 4-0 CHROMIC PLAIN GUT WITH BACITRACIN COATING THE SUTURE WAS USED TO COMPLETE A INTERRUPTED SUTURE SKIN CLOSURE. THE PATIENT TOLERATED PROCEDURE WELL AND WAS SENT TO RECOVERY ROOM IN EXCELLENT CONDITION. Keila Cutler MD Nov 05, 2018 13:11
== END 2018-11-05 15:15 | disposition home or self-care (01) ==
LOC: M SDC 07:27
PROVIDERS: ATTEND Urology Pediatric Urology
DX: N13.1 Hydronephrosis with ureteral stricture, not elsewhere classified (principal); N40.0 Benign prostatic hyperplasia without lower urinary tract symptoms; N47.1 Phimosis; I12.9 Hypertensive chronic kidney disease with stage 1 through stage 4 chronic kidney disease, or unspecified chronic kidney disease; I50.22 Chronic systolic (congestive) heart failure; D50.9 Iron deficiency anemia, unspecified; N18.5 Chronic kidney disease, stage 5; N13.9 Obstructive and reflux uropathy, unspecified; Z91.048 Other nonmedicinal substance allergy status; Z79.899 Other long term (current) drug therapy; Z87.891 Personal history of nicotine dependence
CPT/HCPCS: 52332; 52601; 54161; 74018; 74420; 87088; 87186; 88304; 88305; C1769; C2617; J0744; J1170; J1580; J2250; J3010; Q9958; Q9961; Q9968

== ENCOUNTER → 2018-11-15 | Outpatient (REF) | payer OTHER ==
[~2018-11-15] MED LIST changes: +CIPR-249 PO; -CIPROFLOXACIN 400 MG in APPROPRIATE DILUENT 1 EA IV ONE; -GENTAMICIN 100 MG in APPROPRIATE DILUENT 1 EA IV ONE; -LR 1,000 ML IV ONE; +OXYB5TAB10 PO; -PIPERACILLIN/TAZOBACTAM SOD 3.375 GM in D5W MINI-BAG PLUS 50 ML IV SCH; +TYLE500T78 PO
[2018-11-15 14:09] LABS: AMORPHOUS SEDIMENT SMALL (NEGATIVE); APPEARANCE, URINE HAZY (CLEAR); BACTERIA, URINE AUTO NEGATIVE (NEGATIVE); BILIRUBIN, URINE AUTO NEGATIVE (NEGATIVE); BLOOD, URINE BLOOD 3+ (NEGATIVE); COLOR, URINE STRAW (YELLOW); GLUCOSE, URINE (UA) AUTO NEGATIVE (NEGATIVE); KETONE, URINE AUTO NEGATIVE (NEGATIVE); LEUKOCYTE ESTERASE, URINE AUTO 3+ (NEGATIVE); NITRITE, URINE AUTO NEGATIVE (NEGATIVE); PROTEIN, URINE AUTO NEGATIVE (NEGATIVE); RBC, URINE AUTO TNTC /HPF (0-3); SPECIFIC GRAVITY URINE AUTO 1.004 (1.002-1.035); SQUAMOUS EPITHELIAL CELL UR AU 0 /HPF (0-6); UROBILINOGEN, URINE AUTO 0.2 mg/dL (0.0-2.0); WBC, URINE AUTO 42 /HPF (0-3)
== END ==
LOC: M SMT 13:04
PROVIDERS: ATTEND Urology Pediatric Urology
DX: N40.0 Benign prostatic hyperplasia without lower urinary tract symptoms (principal)

== ENCOUNTER → 2018-11-15 | Outpatient (CLI) | payer OTHER ==
--- NOTE | 2018-11-15 11:57 | REP ---
Clinical: Prostatomegaly with end-stage renal disease and bilateral hydronephrosis. Technique: Single supine view of the abdomen and pelvis. Comparison: 11/05/2018. Findings: Bilateral ureteral stents are again identified and stable satisfactory position. No obvious urinary tract calcifications are identified although evaluation is limited due to overlying bowel gas pattern. There is no evidence for bowel obstruction or perforation. No organomegaly. Skeletal structures demonstrate stable degenerative changes. Impression: Bilateral ureteral stents. Nonspecific abdominal radiograph. Electronically Signed by Luisito Hoffmann MD 11/15/2018 11:48 A
[2018-11-15 17:24] LABS: BASO # 0.1 10^3/uL (0.0-0.2); BASO % 0.8 % (0.0-1.0); EOS # 0.4 10^3/uL (0.0-0.50); EOS % 3.2 % (0.0-3.0); HEMATOCRIT 38.4 % (42.0-52.0); HEMOGLOBIN 12.2 g/dl (13.5-17.5); LYMPH # 1.9 10^3/uL (1.5-4.5); LYMPH % 14.5 % (24.0-44.0); MEAN CORPUSCULAR HEMOGLOBIN 31.8 pg (27.0-33.0); MEAN CORPUSCULAR HGB CONC 31.8 g/dl (32.0-36.5); MONO % 7.4 % (0.0-5.0); NEUTROPHILS # 9.4 10^3/uL (1.8-7.7); PLATELET COUNT, AUTOMATED 291 10^3/uL (150-450); RED BLOOD COUNT 3.84 10^6/uL (4.30-6.10); WHITE BLOOD COUNT 12.9 10^3/uL (4.0-10.0)
[2018-11-15 17:31] LABS: ALBUMIN 3.6 GM/DL (3.2-5.2); CALCIUM LEVEL 8.9 MG/DL (8.8-10.2); CREATININE FOR GFR 4.65 MG/DL (0.70-1.30); GLOMERULAR FILTRATION RATE 13.7 (>49); PHOSPHORUS LEVEL 5.7 MG/DL (2.5-4.9); POTASSIUM SERUM 5.4 MEQ/L (3.5-5.1)
[2018-11-15 17:41] LABS: PTH INTACT 77.3 PG/ML (18.5-88.0)
== END ==
LOC: M SMT 11:28
PROVIDERS: ATTEND Urology Pediatric Urology
DX: N40.0 Benign prostatic hyperplasia without lower urinary tract symptoms (principal); N18.6 End stage renal disease; N13.30 Unspecified hydronephrosis; Z96.0 Presence of urogenital implants

== ENCOUNTER → 2018-11-21 | Outpatient (CLI) | payer OTHER ==
--- NOTE | 2018-11-21 17:35 | REP ---
Clinical: Prostatomegaly. Technique: Real time pena scale and color evaluation using curved array transducer. Findings: The bilateral kidneys are atrophic and appear mildly echogenic with bilateral ureteral stents identified in the bilateral proximal ureters with bowel gas obscuring the more distal ureters through the pelvis. The kidneys are without obvious nephrolithiasis, cystic or mass lesion. Right kidney measures 8.5 x 5.2 x 3.5 cm. Left kidney measures 8.6 x 3.9 x 5.1 cm. The bladder demonstrates wall thickening with a trabeculated appearance and multiple diverticula identified consistent with changes related to outlet obstruction. Prevoid bladder measures 7.8 x 7.0 x 6.2 cm (221 ml). Postvoid bladder measures 6.0 x 4.7 x 4.6 cm (85 ml). Postvoid residual volume equals 38%. Impression: 1. Atrophic appearance the bilateral kidneys with ureteral stents noted. 2. Bladder demonstrates changes related to chronic outlet obstruction including trabeculated wall thickening and diverticulum as well as increased postvoid residual volume. Electronically Signed by Luisito Hoffmann MD 11/21/2018 05:26 P
== END ==
LOC: M RAD 09:19
PROVIDERS: ATTEND Urology Pediatric Urology
DX: N26.1 Atrophy of kidney (terminal) (principal); Z96.0 Presence of urogenital implants; N32.89 Other specified disorders of bladder

== ENCOUNTER → 2018-12-10 | Outpatient (REF) | payer OTHER ==
[2018-12-10 14:59] LABS: PERCENT SATURATION 31.6 % (19.7-50.0)
[2018-12-10 15:04] LABS: FOLATE 17.6 NG/ML (>5.4)
== END ==
LOC: M LAB REF 13:29
PROVIDERS: ATTEND Internal Medicine Nephrology
DX: D64.9 Anemia, unspecified (principal)

== ENCOUNTER → 2018-12-17 | Outpatient (REF) | payer OTHER ==
[2018-12-17 14:36] LABS: AMORPHOUS SEDIMENT SMALL (NEGATIVE); APPEARANCE, URINE CLOUDY (CLEAR); BACTERIA, URINE AUTO 1+ (NEGATIVE); BILIRUBIN, URINE AUTO NEGATIVE (NEGATIVE); BLOOD, URINE BLOOD 3+ (NEGATIVE); COLOR, URINE RED (YELLOW); GLUCOSE, URINE (UA) AUTO NEGATIVE (NEGATIVE); KETONE, URINE AUTO NEGATIVE (NEGATIVE); LEUKOCYTE ESTERASE, URINE AUTO 3+ (NEGATIVE); NITRITE, URINE AUTO NEGATIVE (NEGATIVE); PROTEIN, URINE AUTO 2+ mg/dL (NEGATIVE); RBC, URINE AUTO 50 /HPF (0-3); SPECIFIC GRAVITY URINE AUTO 1.006 (1.002-1.035); SQUAMOUS EPITHELIAL CELL UR AU 0 /HPF (0-6); UROBILINOGEN, URINE AUTO 0.2 mg/dL (0.0-2.0); WBC, URINE AUTO TNTC /HPF (0-3)
== END ==
LOC: M SMT 13:04
PROVIDERS: ATTEND Nurse Practitioner Family
DX: R31.9 Hematuria, unspecified (principal)

== ENCOUNTER → 2018-12-18 | Outpatient (REF) | payer OTHER ==
[2018-12-18 18:25] LABS: APPEARANCE, URINE CLEAR (CLEAR); BACTERIA, URINE AUTO 1+ (NEGATIVE); BILIRUBIN, URINE AUTO NEGATIVE (NEGATIVE); BLOOD, URINE BLOOD 2+ (NEGATIVE); COLOR, URINE RED (YELLOW); GLUCOSE, URINE (UA) AUTO NEGATIVE (NEGATIVE); KETONE, URINE AUTO NEGATIVE (NEGATIVE); LEUKOCYTE ESTERASE, URINE AUTO 3+ (NEGATIVE); MUCUS, URINE SMALL (NEGATIVE); NITRITE, URINE AUTO NEGATIVE (NEGATIVE); PROTEIN, URINE AUTO 1+ mg/dL (NEGATIVE); RBC, URINE AUTO 52 /HPF (0-3); SPECIFIC GRAVITY URINE AUTO 1.009 (1.002-1.035); SQUAMOUS EPITHELIAL CELL UR AU 0 /HPF (0-6); UROBILINOGEN, URINE AUTO 0.2 mg/dL (0.0-2.0); WBC, URINE AUTO 128 /HPF (0-3)
== END ==
LOC: M SMT 17:14
PROVIDERS: ATTEND Nurse Practitioner Family
DX: R31.9 Hematuria, unspecified (principal)

== ENCOUNTER → 2018-12-23 | Outpatient (CLI) | payer OTHER ==
[~2018-12-23] MED LIST changes: +AMPI500C9 PO; +CARV6.25 PO
--- NOTE | 2018-12-24 10:01 | REP ---
Clinical: Retained the ureteral stent. Technique: Single supine view of the abdomen and pelvis. Findings: A left ureteral stent is identified with position cannot be verified and the distal pigtail may be within the ureter and not within the bladder based on its relatively superior position in the pelvis. Moderate fecal stasis noted throughout the abdomen and pelvis. No organomegaly. Small calcifications within the pelvis are nonspecific and may represent phleboliths versus ureteroliths. Skeletal structures are intact. Impression: 1. Left-sided ureteral stent which may have the distal pigtail terminating in the ureter as opposed to the bladder. Electronically Signed by Luisito Hoffmann MD 12/24/2018 09:52 A
== END ==
LOC: M SMT 11:07
PROVIDERS: ATTEND Urology
DX: Z96.0 Presence of urogenital implants (principal); K59.09 Other constipation

== ENCOUNTER → 2018-12-25 | Outpatient (CLI) | payer OTHER ==
[2018-12-25 17:54] LABS: HEMATOCRIT 33.5 % (42.0-52.0); HEMOGLOBIN 10.8 g/dl (13.5-17.5); MEAN CORPUSCULAR HEMOGLOBIN 32.2 pg (27.0-33.0); MEAN CORPUSCULAR HGB CONC 32.2 g/dl (32.0-36.5); PLATELET COUNT, AUTOMATED 346 10^3/uL (150-450); RED BLOOD COUNT 3.35 10^6/uL (4.30-6.10); WHITE BLOOD COUNT 7.9 10^3/uL (4.0-10.0)
[2018-12-25 17:56] LABS: CREATININE FOR GFR 4.86 MG/DL (0.70-1.30); POTASSIUM SERUM 5.4 MEQ/L (3.5-5.1)
== END ==
LOC: M SMT 14:08
PROVIDERS: ATTEND Urology
DX: Z01.818 Encounter for other preprocedural examination (principal); Z96.0 Presence of urogenital implants

== ENCOUNTER 2018-12-26 10:33 | Day surgery (SDC) | payer OTHER ==
[~2018-12-26] VITALS: Ht 167.6 cm; Wt 63.5 kg
[2018-12-26] MEDS ORDERED: GENTAMICIN 100 MG in APPROPRIATE DILUENT 1 EA IV SCH (10:45)
[2018-12-26] MEDS ORDERED: LR 1,000 ML IV ONE (10:45)
[2018-12-26] MEDS ORDERED: LIDOCAINE 2% INJ 100 MG/5 ML SDV (FOR ANES.) As Ordered ONE (12:01)
[2018-12-26] MEDS ORDERED: PROPOFOL 200 MG/20 ML VIAL As Ordered ONE (12:01)
[2018-12-26] MEDS ORDERED: dexameTHASONE 4 MG/ML 1ML VIAL (J1100) As Ordered ONE (12:02)
[2018-12-26] MEDS ORDERED: ONDANSETRON 4MG/2ML VIAL (J2405) As Ordered ONE (12:02)
[2018-12-26] MEDS ORDERED: MIDAZOLAM INJ 2 MG/2 ML VIAL (J2250) As Ordered ONE (12:05)
[2018-12-26] MEDS ORDERED: fentaNYL 100 MCG/2 ML INJECTION (J3010) As Ordered ONE (12:06)
[2018-12-26] MEDS ORDERED: LIDOCAINE 2% 5ML JELLY UROJET As Ordered ONE (12:57)
[2018-12-26] MEDS ORDERED: LevoFLOXacin IV 250 MG in APPROPRIATE DILUENT 1 EA IV ONE (13:00)
[2018-12-26] MEDS ORDERED: ACETAMINOPHEN TAB 650MG DOSE (2X325MG) PO PRN (13:45)
[2018-12-26] MEDS ORDERED: LR 1,000 ML IV SCH (13:45)
[2018-12-26] MEDS ORDERED: ONDANSETRON 4MG/2ML VIAL (J2405) IV PRN (13:45)
[2018-12-26] MEDS ORDERED: PERCOCET 5MG/325MG TAB PO PRN (13:45)
[2018-12-26] MEDS ORDERED: fentaNYL 100 MCG/2 ML INJECTION (J3010) IV PRN (13:45)
[2018-12-26] MEDS ORDERED: HYDROMORPHONE HCL 0.5 MG/ 0.5 ML SYRINGE (J1170 PER 1) IV PRN (13:45)
[2018-12-26 14:00] VITALS: BP 184/85
--- NOTE | 2018-12-26 15:01 | RO ---
DATE OF PROCEDURE: 12/26/2018 PREPROCEDURE DIAGNOSIS: Retained left ureteral stent. POSTPROCEDURE DIAGNOSIS: Retained left ureteral stent. PROCEDURE: Cystoscopy, left ureteroscopy with basket extraction of left ureteral stent. SURGEON: Bob Granado MD [employer]: None. ANESTHESIA: Monitored anesthesia care (MAC). OPERATIVE INDICATIONS: This is a 61-year-old male who underwent a transurethral resection of prostate (TURP) as well as bilateral ureteral stent placement a few months ago. On recent cystoscopy to remove the stents, only his right ureteral stent could be seen protruding into the bladder. It was determined that the left ureteral stent had its distal end inside the ureter. He was brought to the operating room today to retrieve the stent and remove it. DESCRIPTION OF PROCEDURE: Patient brought to the operating room, and MAC anesthesia was administered. Prophylactic antibiotics were infused. He was then placed in the dorsal lithotomy position, prepped and draped in the usual sterile fashion. At this point, a rigid cystoscope was inserted into the urethral meatus and advanced to the bladder. I then traded that out for a ureteroscope. I then went up the left collecting system with a short semirigid ureteroscope, and within the distal ureter, the curl of the left ureteral stent was seen. The distal end of the stent was then grasped using a stone basket, and then the stent was completely removed from the ureter and the bladder intact. The bladder was emptied of all fluids, and this marked the conclusion of the procedure. Patient was then taken out of the dorsal lithotomy position, awakened from anesthesia, transported to recovery room in stable condition. ESTIMATED BLOOD LOSS: 0 mL. COMPLICATIONS: None. SPECIMENS: None. PLAN: I will get a renal ultrasound on the patient in approximately 1 week to check for recurrent hydronephrosis. I will have him followup to discuss results. [facility]AMPUSLane
== END 2018-12-26 14:20 | disposition home or self-care (01) ==
LOC: M SDC 10:33
PROVIDERS: ATTEND Urology
DX: Z46.6 Encounter for fitting and adjustment of urinary device (principal); I11.9 Hypertensive heart disease without heart failure; N40.0 Benign prostatic hyperplasia without lower urinary tract symptoms; N18.4 Chronic kidney disease, stage 4 (severe); Z79.899 Other long term (current) drug therapy; Z43.6 Encounter for attention to other artificial openings of urinary tract
CPT/HCPCS: 52310; J1100; J1956; J2250; J2405; J3010

== ENCOUNTER → 2019-01-03 | Outpatient (CLI) | payer OTHER ==
--- NOTE | 2019-01-03 18:13 | REP ---
Renal ultrasound: Comparison is 11/21/2018. The patient reportedly has had an interval TURP procedure. On the comparison study there were bilateral ureteral stents, atrophic kidneys, bladder wall thickening and bladder trabecula. On the study today there are no ureteral stents. The right kidney measures 8.1 x 3.3 by 3.4 cm. Left kidney measures 7.4-0.6 x 3.6 cm. Both kidneys are atrophic size as previously. The renal cortices are hyperechoic bilaterally compatible with medical renal disease. This is unchanged. There is no hydronephrosis on the right on the left. No renal calculi identified. No solid or cystic renal masses. Bladder: With color Doppler assessment there are bilateral ureteral jets. The pre void bladder volume is 124.6 ml. The postvoid bladder volume is 21.9 milliliters. The bladder wall is trabeculated and thickened measuring up to 7.3 mm thickness/11.4 mm postvoid. The prostate measures 3.0 x 3.2 x 4.5 cm for a volume of 22.6 cc. Previously the prostate measured 3.6 x 2.9 x 4.4 cm. Electronically Signed by Isidoro Orantes MD 01/03/2019 06:04 P
== END ==
LOC: M RAD 16:29
PROVIDERS: ATTEND Urology
DX: N28.89 Other specified disorders of kidney and ureter (principal)

== ENCOUNTER → 2019-01-28 | Outpatient (REF) | payer OTHER ==
[~2019-01-28] MED LIST changes: +FINA5TAB2 PO; +SODI15SS PO
[2019-01-28 14:16] LABS: CHOLESTEROL LEVEL 162 MG/DL (<200); HDL CHOLESTEROL 40 MG/DL (>40); LDL CHOLESTEROL 104 MG/DL (<100); NON-HDL-C 122 MG/DL; TRIGLYCERIDES LEVEL 89 MG/DL (<150)
[2019-01-29 10:39] LABS: HEPATITIS B SURFACE ANTIBODY NEGATIVE (POSITIVE)
[2019-01-29 10:50] LABS: HEPATITIS B SURFACE ANTIGEN NEGATIVE (NEGATIVE)
[2019-01-29 11:19] LABS: HEPATITIS B CORE ANTIBODY IGM NEGATIVE (NEGATIVE)
== END ==
LOC: M LAB REF 13:28
PROVIDERS: ATTEND Internal Medicine Nephrology
DX: N18.5 Chronic kidney disease, stage 5 (principal)

== ENCOUNTER → 2019-10-08 | Outpatient (REF) | payer MEDICARE, MEDICAID ==
[2019-10-08 12:23] LABS: ALBUMIN 3.1 GM/DL (3.2-5.2); BILIRUBIN,DIRECT 0.1 MG/DL (0.0-0.2); BILIRUBIN,TOTAL 0.5 MG/DL (0.2-1.0)
== END ==
LOC: M LABDRAW1 11:35
PROVIDERS: ATTEND Nurse Practitioner Family
DX: Z01.818 Encounter for other preprocedural examination (principal); Z76.82 Awaiting organ transplant status

== ENCOUNTER → 2020-02-25 | Outpatient (CLI) | payer MEDICARE, MEDICAID ==
--- NOTE | 2020-02-25 10:16 | REP ---
ULTRASOUND ABDOMEN: Real-time sonographic evaluation of the abdomen performed. The gallbladder demonstrates no evidence of intraluminal sludge or calculi, wall thickening or pericholecystic fluid. There is no intrahepatic or extrahepatic biliary dilatation, common bile duct measuring 2 mm. Liver is homogeneous with no gross mass. The pancreas could not be seen due to overlying bowel gas. Spleen is normal in size with no intrinsic abnormality measuring 9.3 cm in length. The kidneys are atrophic. They demonstrate hyperechoic echotexture suggesting medical renal disease. There is no hydronephrosis. Right kidney measures 7.1 x 3.7 x 3.4 cm and left kidney 6.4 x 3.4 x 4.3 cm. Proximal abdominal aorta is not visualized due to overlying bowel gas. Distal abdominal aorta is normal in caliber 1.8 cm in AP diameter. No ascites is seen. IMPRESSION: Bilateral renal atrophy. No hydronephrosis. Otherwise negative abdominal ultrasound.
== END ==
LOC: M PLAIMG 08:51
PROVIDERS: ATTEND Nurse Practitioner Family
DX: Z01.818 Encounter for other preprocedural examination (principal)

== ENCOUNTER → 2020-03-22 | Outpatient (CLI) | payer MEDICARE, MEDICAID ==
[~2020-03-22] MED LIST changes: +ATOR1TAB19 PO; +CARV25TA PO; +VITA50005 PO
== END ==
LOC: M LABSMTC 12:19
PROVIDERS: ATTEND Anesthesiology
DX: Z01.818 Encounter for other preprocedural examination (principal); Z11.59 Encounter for screening for other viral diseases
CPT/HCPCS: C9803; U0003

== ENCOUNTER 2020-03-25 06:37 | Day surgery (SDC) | payer MEDICARE, MEDICAID ==
[~2020-03-25] VITALS: Ht 167.6 cm; Wt 69.9 kg
[2020-03-25] MEDS ORDERED: NS 1,000 ML IV ONE (07:00)
[2020-03-25] MEDS ORDERED: cefTRIAXone SOD 1 GM in D5W MINI-BAG PLUS 50 ML IV ONE (07:00)
[2020-03-25] MEDS ORDERED: propofoL 200 MG/20 ML VIAL As Ordered ONE (07:07)
[2020-03-25] MEDS ORDERED: cefTRIAXone SOD 1GM VIAL (J0696 PER 250MG) As Ordered ONE (07:16)
[2020-03-25 07:29] LABS: CALCIUM LEVEL 9.3 MG/DL (8.8-10.2); CREATININE FOR GFR 4.37 MG/DL (0.70-1.30); GLOMERULAR FILTRATION RATE 14.6 (>49); POTASSIUM SERUM 4.2 MEQ/L (3.5-5.1)
--- NOTE | 2020-03-25 08:20 | ROOR ---
Patient Name: Jameson Dean Procedure Date: 03/25/2020 7:38 AM Date of : 1955 Age: 64 Room: [facility] Gender: Male Note Status: Finalized Procedure: Colonoscopy Indications: Screening for colorectal malignant neoplasm Providers: Krunal Ortega MD Referring MD: [facility], Admin. Requesting Provider: Medicines: Monitored Anesthesia Care Complications: No immediate complications. Procedure: Pre-Anesthesia Assessment: - Prior to the procedure, a History and Physical was performed, and patient medications and allergies were reviewed. The patient is competent. The risks and benefits of the procedure and the sedation options and risks were discussed with the patient. All questions were answered and informed consent was obtained. Patient identification and proposed procedure were verified by the physician, the nurse and the anesthesiologist in the procedure room. Mental Status Examination: alert and oriented. Airway Examination: normal oropharyngeal airway and neck mobility. Respiratory Examination: clear to auscultation. CV Examination: normal. Prophylactic Antibiotics: The patient requires prophylactic antibiotics due to a prior history of peritoneal dialysis. Prior Anticoagulants: The patient has taken no previous anticoagulant or antiplatelet agents. ASA Grade Assessment: III - A patient with severe systemic disease. After reviewing the risks and benefits, the patient was deemed in satisfactory condition to undergo the procedure. The anesthesia plan was to use monitored anesthesia care (MAC). Immediately prior to administration of medications, the patient was re-assessed for adequacy to receive sedatives. The heart rate, respiratory rate, oxygen saturations, blood pressure, adequacy of pulmonary ventilation, and response to care were monitored throughout the procedure. The physical status of the patient was re-assessed after the procedure. The Colonoscope was introduced through the anus and advanced to the terminal ileum, with identification of the appendiceal orifice and IC valve. Findings: The perianal and digital rectal examinations were normal. The terminal ileum appeared normal. Three sessile polyps were found in the transverse colon and ascending colon. The polyps were 5 to 8 mm in size. These polyps were removed with a hot snare. Resection and retrieval were complete. Verification of patient identification for the specimen was done by the physician and nurse using the patient's name, date and medical record number. Estimated blood loss was minimal. A 15 mm polyp was found in the rectum. The polyp was sessile. The polyp was removed with a hot snare. Resection and retrieval were complete. Multiple small and large-mouthed diverticula were found in the sigmoid colon. There was no evidence of diverticular bleeding. Non-bleeding external and internal hemorrhoids were found during retroflexion. The hemorrhoids were medium-sized. Impression: - The examined portion of the ileum was normal. - Three 5 to 8 mm polyps in the transverse colon and in the ascending colon, removed with a hot snare. Resected and retrieved. - One 15 mm polyp in the rectum, removed with a hot snare. Resected and retrieved. - Moderate diverticulosis in the sigmoid colon. There was no evidence of diverticular bleeding. - Non-bleeding external and internal hemorrhoids. Recommendation: - Patient has a contact number available for emergencies. The signs and symptoms of potential delayed complications were discussed with the patient. Return to normal activities tomorrow. Written discharge instructions were provided to the patient. - High fiber diet. - Continue present medications. - Await pathology results. - Repeat colonoscopy in 3 years for surveillance based on pathology results. - Miralax 1 capful (17 grams) in 8 ounces of water PO daily for 3 days. - Preparation H ointment: Apply externally daily. - Telephone GI clinic for pathology results in 2 weeks. - Return to primary care physician. Krunal Ortega MD Krunal Ortega MD 03/25/2020 8:20:14 AM Electronically signed by Krunal Ortega MD Number of Addenda: 0 Note Initiated On: 03/25/2020 7:38 AM Estimated Blood Loss: Estimated blood loss was minimal.
[2020-03-25 08:35] VITALS: BP 178/85
== END 2020-03-25 08:54 | disposition home or self-care (01) ==
LOC: M OPP 06:37
PROVIDERS: ATTEND Internal Medicine Gastroenterology
DX: Z12.11 Encounter for screening for malignant neoplasm of colon (principal); K62.1 Rectal polyp; D12.2 Benign neoplasm of ascending colon; K64.8 Other hemorrhoids; K57.30 Diverticulosis of large intestine without perforation or abscess without bleeding; N13.30 Unspecified hydronephrosis; I51.9 Heart disease, unspecified; N18.6 End stage renal disease; Z99.2 Dependence on renal dialysis; Z79.899 Other long term (current) drug therapy; Z91.048 Other nonmedicinal substance allergy status
CPT/HCPCS: 36415; 45385; 80048; 87486; 87581; 87633; 87798; 88305; J0696

== ENCOUNTER → 2020-05-25 | Outpatient (CLI) | payer OTHER ==
--- NOTE | 2020-06-05 19:52 | ECGEPIP ---
[facility] Test Date: 2020-05-25 Pat Name: MARY WONG Department: Room: - Gender: Male International Manager: RF : 1955 Requested By: Shonda Branch Order Number: [id number] Reading MD: Kyle Valladares Measurements Intervals [place] Rate: 68 P: 68 [place]: 208 QRS: 68 QRSD: 153 T: 219 QT: 456 QTc: 488 Interpretive Statements SINUS RHYTHM. LA CONDUCTION DEFECT. FIRST DEGREE AV BLOCK. LEFT BUNDLE BRANCH BLOCK SEE SCANNED DOWNTIME REPORT
--- NOTE | 2020-06-16 10:43 | REP ---
CHEST X-RAY CLINICAL: Preoperative assessment. TECHNIQUE: PA and lateral. FINDINGS: Mediastinum and cardiac silhouette normal. Lung garcia clear. No consolidation, effusion, or pneumothorax. Skeletal structures intact. IMPRESSION: Normal chest x-ray. No acute cardiopulmonary process or focal consolidation. MTDD
== END ==
LOC: M EKG 08:09 → M RAD 08:09
PROVIDERS: ATTEND Nurse Practitioner Family
DX: Z01.818 Encounter for other preprocedural examination (principal)

== ENCOUNTER → 2020-06-04 | Outpatient (CLI) | payer OTHER | LOC: M PLALAB 09:40 | PROVIDERS: ATTEND Nurse Practitioner Family | DX: Z01.818 Encounter for other preprocedural examination (principal) ==

== ENCOUNTER → 2021-09-21 | Outpatient (CLI) | payer MEDICARE, MEDICAID ==
[~2021-09-21] MED LIST changes: +ERGO500029 PO; -VITA50005 PO
[2021-09-21 14:02] LABS: BASO % 0.5 % (0.0-1.0); EOS # 0.1 10^3/uL (0.0-0.5); EOS % 1.1 % (0.0-3.0); HEMATOCRIT 33.6 % (42.0-52.0); HEMOGLOBIN 10.6 g/dl (13.5-17.5); LYMPH % 16.9 % (24.0-44.0); MEAN CORPUSCULAR HEMOGLOBIN 32.5 pg (27.0-33.0); MEAN CORPUSCULAR HGB CONC 31.5 g/dl (32.0-36.5); MEAN CORPUSCULAR VOLUME 103.1 fl (80.0-96.0); MONO # 0.3 10^3/uL (0.0-0.8); MONO % 4.9 % (2.0-8.0); NEUTROPHILS # 4.3 10^3/uL (1.5-8.5); NEUTROPHILS % 76.1 % (36.0-66.0); PLATELET COUNT, AUTOMATED 267 10^3/uL (150-450); RED BLOOD COUNT 3.26 10^6/uL (4.30-6.10); WHITE BLOOD COUNT 5.7 10^3/uL (4.0-10.0)
[2021-09-21 14:10] LABS: APPEARANCE, URINE HAZY (CLEAR); BACTERIA, URINE AUTO NEGATIVE (NEGATIVE); BILIRUBIN, URINE AUTO NEGATIVE (NEGATIVE); BLOOD, URINE BLOOD NEGATIVE (NEGATIVE); COLOR, URINE YELLOW (YELLOW); GLUCOSE, URINE (UA) AUTO NEGATIVE (NEGATIVE); KETONE, URINE AUTO TRACE mg/dL (NEGATIVE); LEUKOCYTE ESTERASE, URINE AUTO 2+ (NEGATIVE); NITRITE, URINE AUTO NEGATIVE (NEGATIVE); PROTEIN, URINE AUTO 2+ mg/dL (NEGATIVE); RBC, URINE AUTO 0 /HPF (0-3); SPECIFIC GRAVITY URINE AUTO 1.015 (1.002-1.035); SQUAMOUS EPITHELIAL CELL UR AU 1 /HPF (0-6); UROBILINOGEN, URINE AUTO 0.2 mg/dL (0.0-2.0); WBC, URINE AUTO 11 /HPF (0-3)
[2021-09-21 14:12] LABS: ALBUMIN 3.6 GM/DL (3.2-5.2); BILIRUBIN,DIRECT 0.2 MG/DL (0.0-0.2); BILIRUBIN,TOTAL 0.5 MG/DL (0.2-1.0); CALCIUM LEVEL 8.9 MG/DL (8.8-10.2); CREATININE FOR GFR 4.5 MG/DL (0.70-1.30); GLOMERULAR FILTRATION RATE 14.1 (>49); MAGNESIUM LEVEL 1.7 MG/DL (1.8-2.4); PHOSPHORUS LEVEL 3.2 MG/DL (2.5-4.9); POTASSIUM SERUM 4.5 MEQ/L (3.5-5.1); TOTAL PROTEIN 6.2 GM/DL (6.4-8.2)
[2021-09-21 14:25] LABS: TOTAL PROTEIN,RANDOM URINE 88.6 MG/DL (0.0-12.0)
== END ==
LOC: M PLALAB 09:41
PROVIDERS: ATTEND Internal Medicine Nephrology
DX: N18.5 Chronic kidney disease, stage 5 (principal); D84.9 Immunodeficiency, unspecified; Z94.0 Kidney transplant status; Z79.899 Other long term (current) drug therapy

== ENCOUNTER → 2021-09-28 | Outpatient (CLI) | payer OTHER, MEDICARE, MEDICAID ==
[2021-09-28 10:48] LABS: APPEARANCE, URINE CLOUDY (CLEAR); BACTERIA, URINE AUTO NEGATIVE (NEGATIVE); BILIRUBIN, URINE AUTO NEGATIVE (NEGATIVE); BLOOD, URINE BLOOD 1+ (NEGATIVE); COLOR, URINE YELLOW (YELLOW); GLUCOSE, URINE (UA) AUTO NEGATIVE (NEGATIVE); KETONE, URINE AUTO NEGATIVE (NEGATIVE); LEUKOCYTE ESTERASE, URINE AUTO 1+ (NEGATIVE); MUCUS, URINE SMALL (NEGATIVE); NITRITE, URINE AUTO NEGATIVE (NEGATIVE); PROTEIN, URINE AUTO 3+ mg/dL (NEGATIVE); RBC, URINE AUTO 41 /HPF (0-3); SPECIFIC GRAVITY URINE AUTO 1.014 (1.002-1.035); SQUAMOUS EPITHELIAL CELL UR AU 1 /HPF (0-6); UROBILINOGEN, URINE AUTO 0.2 mg/dL (0.0-2.0); WBC, URINE AUTO 20 /HPF (0-3)
[2021-09-28 10:49] LABS: BASO % 0.4 % (0.0-1.0); EOS # 0.1 10^3/uL (0.0-0.5); EOS % 0.9 % (0.0-3.0); HEMATOCRIT 31.8 % (42.0-52.0); HEMOGLOBIN 10.1 g/dl (13.5-17.5); LYMPH # 1.1 10^3/uL (1.5-5.0); LYMPH % 14.2 % (24.0-44.0); MEAN CORPUSCULAR HEMOGLOBIN 32.5 pg (27.0-33.0); MEAN CORPUSCULAR HGB CONC 31.8 g/dl (32.0-36.5); MEAN CORPUSCULAR VOLUME 102.3 fl (80.0-96.0); MONO # 0.3 10^3/uL (0.0-0.8); MONO % 4.2 % (2.0-8.0); NEUTROPHILS # 6.4 10^3/uL (1.5-8.5); NEUTROPHILS % 79.4 % (36.0-66.0); PLATELET COUNT, AUTOMATED 229 10^3/uL (150-450); RED BLOOD COUNT 3.11 10^6/uL (4.30-6.10)
[2021-09-28 11:18] LABS: CALCIUM LEVEL 8.6 MG/DL (8.8-10.2); CREATININE FOR GFR 7.21 MG/DL (0.70-1.30); GLOMERULAR FILTRATION RATE 8.2 (>49); PHOSPHORUS LEVEL 4.4 MG/DL (2.5-4.9); POTASSIUM SERUM 4.3 MEQ/L (3.5-5.1)
[2021-09-28 11:19] LABS: ALBUMIN 3.4 GM/DL (3.2-5.2); BILIRUBIN,DIRECT 0.2 MG/DL (0.0-0.2); BILIRUBIN,TOTAL 0.4 MG/DL (0.2-1.0); MAGNESIUM LEVEL 1.8 MG/DL (1.8-2.4); TOTAL PROTEIN 5.8 GM/DL (6.4-8.2)
[2021-09-28 11:40] LABS: TOTAL PROTEIN,RANDOM URINE 218.1 MG/DL (0.0-12.0)
== END ==
LOC: M PLALAB 09:31
PROVIDERS: ATTEND Internal Medicine Nephrology
DX: Z94.0 Kidney transplant status (principal); N18.5 Chronic kidney disease, stage 5; D84.9 Immunodeficiency, unspecified; Z79.899 Other long term (current) drug therapy

== ENCOUNTER → 2021-10-05 | Outpatient (CLI) | payer OTHER, MEDICARE, MEDICAID ==
[2021-10-05 10:20] LABS: BASO % 0.3 % (0.0-1.0); EOS % 0.3 % (0.0-3.0); HEMATOCRIT 30.2 % (42.0-52.0); HEMOGLOBIN 9.5 g/dl (13.5-17.5); LYMPH # 0.6 10^3/uL (1.5-5.0); LYMPH % 6.7 % (24.0-44.0); MEAN CORPUSCULAR HEMOGLOBIN 32.4 pg (27.0-33.0); MEAN CORPUSCULAR HGB CONC 31.5 g/dl (32.0-36.5); MEAN CORPUSCULAR VOLUME 103.1 fl (80.0-96.0); MONO # 0.7 10^3/uL (0.0-0.8); MONO % 7.2 % (2.0-8.0); NEUTROPHILS # 8.2 10^3/uL (1.5-8.5); NEUTROPHILS % 85.1 % (36.0-66.0); PLATELET COUNT, AUTOMATED 206 10^3/uL (150-450); RED BLOOD COUNT 2.93 10^6/uL (4.30-6.10); WHITE BLOOD COUNT 9.6 10^3/uL (4.0-10.0)
[2021-10-05 10:33] LABS: APPEARANCE, URINE CLOUDY (CLEAR); BACTERIA, URINE AUTO 1+ (NEGATIVE); BILIRUBIN, URINE AUTO NEGATIVE (NEGATIVE); BLOOD, URINE BLOOD 2+ (NEGATIVE); COLOR, URINE YELLOW (YELLOW); GLUCOSE, URINE (UA) AUTO NEGATIVE (NEGATIVE); GRANULAR CAST, URINE AUTO 4 /LPF; KETONE, URINE AUTO NEGATIVE (NEGATIVE); LEUKOCYTE ESTERASE, URINE AUTO 1+ (NEGATIVE); MUCUS, URINE SMALL (NEGATIVE); NITRITE, URINE AUTO NEGATIVE (NEGATIVE); PROTEIN, URINE AUTO 2+ mg/dL (NEGATIVE); RBC, URINE AUTO 152 /HPF (0-3); SPECIFIC GRAVITY URINE AUTO 1.013 (1.002-1.035); SQUAMOUS EPITHELIAL CELL UR AU 1 /HPF (0-6); UROBILINOGEN, URINE AUTO 0.2 mg/dL (0.0-2.0); WBC, URINE AUTO 33 /HPF (0-3)
[2021-10-05 11:08] LABS: BILIRUBIN,DIRECT 0.1 MG/DL (0.0-0.2); BILIRUBIN,TOTAL 0.2 MG/DL (0.2-1.0); CALCIUM LEVEL 8.5 MG/DL (8.8-10.2); CREATININE FOR GFR 4.04 MG/DL (0.70-1.30); GLOMERULAR FILTRATION RATE 15.9 (>49); MAGNESIUM LEVEL 1.7 MG/DL (1.8-2.4); PHOSPHORUS LEVEL 3.2 MG/DL (2.5-4.9); POTASSIUM SERUM 3.5 MEQ/L (3.5-5.1); TOTAL PROTEIN 5.5 GM/DL (6.4-8.2)
[2021-10-05 15:03] LABS: TOTAL PROTEIN,RANDOM URINE 92.2 MG/DL (0.0-12.0)
== END ==
LOC: M PLALAB 09:14
PROVIDERS: ATTEND Internal Medicine Nephrology
DX: Z94.0 Kidney transplant status (principal); N18.5 Chronic kidney disease, stage 5; D84.9 Immunodeficiency, unspecified; Z79.899 Other long term (current) drug therapy

== ENCOUNTER → 2021-10-11 | Outpatient (CLI) | payer MEDICARE, MEDICAID ==
[2021-10-11 10:29] LABS: BASO % 0.4 % (0.0-1.0); EOS # 0.1 10^3/uL (0.0-0.5); EOS % 1.5 % (0.0-3.0); HEMATOCRIT 29.8 % (42.0-52.0); HEMOGLOBIN 9.5 g/dl (13.5-17.5); LYMPH # 0.8 10^3/uL (1.5-5.0); LYMPH % 10.3 % (24.0-44.0); MEAN CORPUSCULAR HGB CONC 31.9 g/dl (32.0-36.5); MEAN CORPUSCULAR VOLUME 100.3 fl (80.0-96.0); MONO # 0.5 10^3/uL (0.0-0.8); MONO % 6.6 % (2.0-8.0); NEUTROPHILS # 6.5 10^3/uL (1.5-8.5); NEUTROPHILS % 80.7 % (36.0-66.0); PLATELET COUNT, AUTOMATED 259 10^3/uL (150-450); RED BLOOD COUNT 2.97 10^6/uL (4.30-6.10)
[2021-10-11 10:56] LABS: APPEARANCE, URINE HAZY (CLEAR); BACTERIA, URINE AUTO 1+ (NEGATIVE); BILIRUBIN, URINE AUTO NEGATIVE (NEGATIVE); BLOOD, URINE BLOOD 1+ (NEGATIVE); COLOR, URINE YELLOW (YELLOW); GLUCOSE, URINE (UA) AUTO NEGATIVE (NEGATIVE); KETONE, URINE AUTO NEGATIVE (NEGATIVE); LEUKOCYTE ESTERASE, URINE AUTO 1+ (NEGATIVE); MUCUS, URINE SMALL (NEGATIVE); NITRITE, URINE AUTO NEGATIVE (NEGATIVE); PROTEIN, URINE AUTO 2+ mg/dL (NEGATIVE); RBC, URINE AUTO 30 /HPF (0-3); SPECIFIC GRAVITY URINE AUTO 1.012 (1.002-1.035); SQUAMOUS EPITHELIAL CELL UR AU 3 /HPF (0-6); UROBILINOGEN, URINE AUTO 0.2 mg/dL (0.0-2.0); WBC, URINE AUTO 11 /HPF (0-3)
[2021-10-11 10:57] LABS: ALBUMIN 2.9 GM/DL (3.2-5.2); CALCIUM LEVEL 8.3 MG/DL (8.8-10.2); CREATININE FOR GFR 3.51 MG/DL (0.70-1.30); GLOMERULAR FILTRATION RATE 18.7 (>49); MAGNESIUM LEVEL 1.5 MG/DL (1.8-2.4); PHOSPHORUS LEVEL 3.7 MG/DL (2.5-4.9); POTASSIUM SERUM 3.3 MEQ/L (3.5-5.1)
[2021-10-11 11:53] LABS: TOTAL PROTEIN,RANDOM URINE 178.9 MG/DL (0.0-12.0)
== END ==
LOC: M PLALAB 09:04
PROVIDERS: ATTEND Internal Medicine Nephrology
DX: N18.5 Chronic kidney disease, stage 5 (principal); D84.9 Immunodeficiency, unspecified; Z94.0 Kidney transplant status; Z79.899 Other long term (current) drug therapy

== ENCOUNTER → 2021-10-18 | Outpatient (REF) | payer MEDICARE, MEDICAID, OTHER ==
[2021-10-18 13:51] LABS: TOTAL PROTEIN,RANDOM URINE 107.2 MG/DL (0.0-12.0)
[2021-10-18 13:59] LABS: ALBUMIN 2.9 GM/DL (3.2-5.2); BILIRUBIN,DIRECT 0.1 MG/DL (0.0-0.2); BILIRUBIN,TOTAL 0.2 MG/DL (0.2-1.0); MAGNESIUM LEVEL 1.6 MG/DL (1.8-2.4); TOTAL PROTEIN 5.3 GM/DL (6.4-8.2)
== END ==
LOC: M LAB REF 12:58
PROVIDERS: ATTEND Internal Medicine Nephrology
DX: Z94.0 Kidney transplant status (principal); N18.5 Chronic kidney disease, stage 5; D84.9 Immunodeficiency, unspecified; Z79.899 Other long term (current) drug therapy

== ENCOUNTER 2021-10-25 09:14 | Outpatient (CLI) | payer MEDICARE, MEDICAID, OTHER ==
[~2021-10-25] VITALS: Ht 167.6 cm; Wt 68.2 kg
[~2021-10-25 09:14] MED LIST changes: +BELATACEPT IV ONE; +NS IV ONE
[2021-10-25 09:46] VITALS: BP 134/70
[2021-10-25 10:27] VITALS: BP 131/75
== END 2021-10-25 10:30 | disposition home or self-care (01) ==
LOC: M INFU 09:14
PROVIDERS: ATTEND Internal Medicine Nephrology
DX: Z94.0 Kidney transplant status (principal)
CPT/HCPCS: 96365; J0485

== ENCOUNTER → 2021-10-26 | Outpatient (CLI) | payer MEDICARE, MEDICAID, OTHER ==
[~2021-10-26] MED LIST changes: -BELATACEPT IV ONE; -NS IV ONE
[2021-10-26 10:42] LABS: BASO % 0.4 % (0.0-1.0); EOS % 0.4 % (0.0-3.0); HEMATOCRIT 30.1 % (42.0-52.0); HEMOGLOBIN 9.3 g/dl (13.5-17.5); LYMPH # 1.1 10^3/uL (1.5-5.0); LYMPH % 12.5 % (24.0-44.0); MEAN CORPUSCULAR HEMOGLOBIN 32.2 pg (27.0-33.0); MEAN CORPUSCULAR HGB CONC 30.9 g/dl (32.0-36.5); MEAN CORPUSCULAR VOLUME 104.2 fl (80.0-96.0); MONO # 0.5 10^3/uL (0.0-0.8); MONO % 6.1 % (2.0-8.0); NEUTROPHILS # 6.8 10^3/uL (1.5-8.5); NEUTROPHILS % 79.9 % (36.0-66.0); PLATELET COUNT, AUTOMATED 295 10^3/uL (150-450); RED BLOOD COUNT 2.89 10^6/uL (4.30-6.10); WHITE BLOOD COUNT 8.5 10^3/uL (4.0-10.0)
[2021-10-26 11:05] LABS: AMORPHOUS SEDIMENT SMALL (NEGATIVE); APPEARANCE, URINE CLEAR (CLEAR); BACTERIA, URINE AUTO 1+ (NEGATIVE); BILIRUBIN, URINE AUTO NEGATIVE (NEGATIVE); BLOOD, URINE BLOOD 2+ (NEGATIVE); COLOR, URINE YELLOW (YELLOW); GLUCOSE, URINE (UA) AUTO NEGATIVE (NEGATIVE); KETONE, URINE AUTO NEGATIVE (NEGATIVE); LEUKOCYTE ESTERASE, URINE AUTO TRACE (NEGATIVE); MUCUS, URINE SMALL (NEGATIVE); NITRITE, URINE AUTO NEGATIVE (NEGATIVE); PROTEIN, URINE AUTO 1+ mg/dL (NEGATIVE); RBC, URINE AUTO 57 /HPF (0-3); SPECIFIC GRAVITY URINE AUTO 1.012 (1.002-1.035); SQUAMOUS EPITHELIAL CELL UR AU 1 /HPF (0-6); UROBILINOGEN, URINE AUTO 0.2 mg/dL (0.0-2.0); WBC, URINE AUTO 7 /HPF (0-3)
[2021-10-26 11:07] LABS: BILIRUBIN,DIRECT 0.1 MG/DL (0.0-0.2); BILIRUBIN,TOTAL 0.3 MG/DL (0.2-1.0); CALCIUM LEVEL 9.7 MG/DL (8.8-10.2); CREATININE FOR GFR 3.31 MG/DL (0.70-1.30); GLOMERULAR FILTRATION RATE 20.1 (>49); PHOSPHORUS LEVEL 4.4 MG/DL (2.5-4.9); POTASSIUM SERUM 4.5 MEQ/L (3.5-5.1); TOTAL PROTEIN 5.5 GM/DL (6.4-8.2)
[2021-10-26 11:14] LABS: MAU/CREAT RATIO 118.1 MCG/MG (0.0-30.0); TOTAL PROTEIN,RANDOM URINE 54.9 MG/DL (0.0-12.0)
[2021-10-26 19:56] LABS: MAGNESIUM LEVEL 1.8 MG/DL (1.7-2.2)
== END ==
LOC: M PLALAB 08:28
PROVIDERS: ATTEND Internal Medicine Nephrology
DX: Z94.0 Kidney transplant status (principal); N18.5 Chronic kidney disease, stage 5; D84.9 Immunodeficiency, unspecified; Z79.899 Other long term (current) drug therapy

== ENCOUNTER 2021-11-08 08:53 | Outpatient (CLI) | payer MEDICARE, MEDICAID, OTHER ==
[~2021-11-08] VITALS: Ht 167.6 cm; Wt 68.2 kg
[2021-11-08] MEDS ORDERED: NS IV ONE (09:00)
[2021-11-08] MEDS ORDERED: BELATACEPT IV ONE (09:00)
[2021-11-08 09:09] VITALS: BP 130/75
[2021-11-08 09:47] VITALS: BP 151/68
[2021-11-08 10:31] VITALS: BP 131/77
== END 2021-11-08 10:31 | disposition home or self-care (01) ==
LOC: M INFU 08:53
PROVIDERS: ATTEND Internal Medicine Nephrology
DX: Z94.0 Kidney transplant status (principal); N18.5 Chronic kidney disease, stage 5; D84.9 Immunodeficiency, unspecified; Z79.899 Other long term (current) drug therapy
CPT/HCPCS: 36415; 80069; 80076; 81001; 82570; 83735; 84156; 85025; 87088; 87186; 96365; J0485

== ENCOUNTER → 2021-11-08 | Outpatient (CLI) | payer MEDICARE, MEDICAID, OTHER ==
[2021-11-08 13:45] LABS: APPEARANCE, URINE HAZY (CLEAR); BACTERIA, URINE AUTO NEGATIVE (NEGATIVE); BILIRUBIN, URINE AUTO NEGATIVE (NEGATIVE); BLOOD, URINE BLOOD NEGATIVE (NEGATIVE); COLOR, URINE YELLOW (YELLOW); GLUCOSE, URINE (UA) AUTO NEGATIVE (NEGATIVE); KETONE, URINE AUTO NEGATIVE (NEGATIVE); LEUKOCYTE ESTERASE, URINE AUTO NEGATIVE (NEGATIVE); NITRITE, URINE AUTO NEGATIVE (NEGATIVE); PROTEIN, URINE AUTO 1+ mg/dL (NEGATIVE); RBC, URINE AUTO 1 /HPF (0-3); SPECIFIC GRAVITY URINE AUTO 1.014 (1.002-1.035); SQUAMOUS EPITHELIAL CELL UR AU 2 /HPF (0-6); UROBILINOGEN, URINE AUTO 0.2 mg/dL (0.0-2.0); WBC, URINE AUTO 3 /HPF (0-3)
[2021-11-08 13:50] LABS: BASO % 0.4 % (0.0-1.0); EOS % 0.3 % (0.0-3.0); HEMATOCRIT 32.7 % (42.0-52.0); HEMOGLOBIN 9.9 g/dl (13.5-17.5); LYMPH # 0.8 10^3/uL (1.5-5.0); LYMPH % 11.3 % (24.0-44.0); MEAN CORPUSCULAR HEMOGLOBIN 31.5 pg (27.0-33.0); MEAN CORPUSCULAR HGB CONC 30.3 g/dl (32.0-36.5); MEAN CORPUSCULAR VOLUME 104.1 fl (80.0-96.0); MONO # 0.6 10^3/uL (0.0-0.8); MONO % 8.8 % (2.0-8.0); NEUTROPHILS # 5.6 10^3/uL (1.5-8.5); NEUTROPHILS % 78.2 % (36.0-66.0); PLATELET COUNT, AUTOMATED 289 10^3/uL (150-450); RED BLOOD COUNT 3.14 10^6/uL (4.30-6.10); WHITE BLOOD COUNT 7.2 10^3/uL (4.0-10.0)
[2021-11-08 14:14] LABS: ALBUMIN 3.3 GM/DL (3.2-5.2); BILIRUBIN,DIRECT 0.1 MG/DL (0.0-0.2); BILIRUBIN,TOTAL 0.3 MG/DL (0.2-1.0); CALCIUM LEVEL 8.9 MG/DL (8.8-10.2); CREATININE FOR GFR 3.22 MG/DL (0.70-1.30); GLOMERULAR FILTRATION RATE 20.7 (>49); MAGNESIUM LEVEL 1.7 MG/DL (1.8-2.4); PHOSPHORUS LEVEL 3.5 MG/DL (2.5-4.9); POTASSIUM SERUM 4.4 MEQ/L (3.5-5.1)
[2021-11-08 14:17] LABS: TOTAL PROTEIN,RANDOM URINE 44.7 MG/DL (0.0-12.0)
== END ==
LOC: M PLALAB 11:29
PROVIDERS: ATTEND Internal Medicine Nephrology
DX: N18.5 Chronic kidney disease, stage 5 (principal); D84.9 Immunodeficiency, unspecified; Z94.0 Kidney transplant status; Z79.899 Other long term (current) drug therapy

== ENCOUNTER 2021-11-22 09:02 | Outpatient (CLI) | payer MEDICARE, MEDICAID, OTHER ==
[~2021-11-22] VITALS: Ht 167.6 cm; Wt 68.2 kg
[2021-11-22] MEDS ORDERED: NS IV ONE (09:30)
[2021-11-22] MEDS ORDERED: BELATACEPT IV ONE (09:30)
[2021-11-22 09:50] VITALS: BP 115/72
[2021-11-22 10:54] VITALS: BP 167/81
== END 2021-11-22 11:00 | disposition home or self-care (01) ==
LOC: M INFU 09:02
PROVIDERS: ATTEND Internal Medicine Nephrology
DX: Z94.0 Kidney transplant status (principal); N18.5 Chronic kidney disease, stage 5; D84.9 Immunodeficiency, unspecified; Z79.899 Other long term (current) drug therapy
CPT/HCPCS: 96365; J0485

== ENCOUNTER 2021-12-06 08:48 | Outpatient (CLI) | payer MEDICARE, MEDICAID, OTHER ==
[~2021-12-06] VITALS: Ht 167.6 cm; Wt 68.0 kg
[2021-12-06] MEDS ORDERED: NS IV ONE (09:00)
[2021-12-06] MEDS ORDERED: BELATACEPT IV ONE (09:00)
[2021-12-06 09:10] VITALS: BP 135/75
[2021-12-06 10:23] VITALS: BP 131/88
== END 2021-12-06 10:20 | disposition home or self-care (01) ==
LOC: M INFU 08:48
PROVIDERS: ATTEND Internal Medicine Nephrology
DX: Z94.0 Kidney transplant status (principal); Z91.048 Other nonmedicinal substance allergy status
CPT/HCPCS: 96365; J0485

== ENCOUNTER → 2021-12-07 | Outpatient (CLI) | payer MEDICARE, MEDICAID, OTHER ==
[2021-12-07 10:38] LABS: HEMATOCRIT 33.1 % (42.0-52.0); HEMOGLOBIN 10.1 g/dl (13.5-17.5); MEAN CORPUSCULAR HEMOGLOBIN 30.7 pg (27.0-33.0); MEAN CORPUSCULAR HGB CONC 30.5 g/dl (32.0-36.5); MEAN CORPUSCULAR VOLUME 100.6 fl (80.0-96.0); PLATELET COUNT, AUTOMATED 131 10^3/uL (150-450); RED BLOOD COUNT 3.29 10^6/uL (4.30-6.10); WHITE BLOOD COUNT 3.4 10^3/uL (4.0-10.0)
[2021-12-07 11:00] LABS: APPEARANCE, URINE HAZY (CLEAR); BACTERIA, URINE AUTO 2+ (NEGATIVE); BILIRUBIN, URINE AUTO NEGATIVE (NEGATIVE); BLOOD, URINE BLOOD NEGATIVE (NEGATIVE); COLOR, URINE YELLOW (YELLOW); GLUCOSE, URINE (UA) AUTO NEGATIVE (NEGATIVE); GRANULAR CAST, URINE AUTO 6 /LPF; KETONE, URINE AUTO NEGATIVE (NEGATIVE); LEUKOCYTE ESTERASE, URINE AUTO NEGATIVE (NEGATIVE); MUCUS, URINE SMALL (NEGATIVE); NITRITE, URINE AUTO NEGATIVE (NEGATIVE); PROTEIN, URINE AUTO 1+ mg/dL (NEGATIVE); RBC, URINE AUTO 0 /HPF (0-3); SPECIFIC GRAVITY URINE AUTO 1.016 (1.002-1.035); SQUAMOUS EPITHELIAL CELL UR AU 1 /HPF (0-6); UROBILINOGEN, URINE AUTO 0.2 mg/dL (0.0-2.0); WBC, URINE AUTO 1 /HPF (0-3)
[2021-12-07 11:07] LABS: ALT/SGPT 27 U/L (12-78); BILIRUBIN,DIRECT < 0.1 MG/DL (0.0-0.2); BILIRUBIN,TOTAL 0.3 MG/DL (0.2-1.0); BLOOD UREA NITROGEN 24 MG/DL (7-18); CALCIUM LEVEL 8.1 MG/DL (8.8-10.2); CARBON DIOXIDE LEVEL 26 MEQ/L (21-32); CHLORIDE LEVEL 111 MEQ/L (98-107); CREATININE FOR GFR 3.03 MG/DL (0.70-1.30); GLOMERULAR FILTRATION RATE 22.2 (>49); GLUCOSE, FASTING 91 MG/DL (70-100); MAGNESIUM LEVEL 1.8 MG/DL (1.8-2.4); PHOSPHORUS LEVEL 2.9 MG/DL (2.5-4.9); POTASSIUM SERUM 4.2 MEQ/L (3.5-5.1); SODIUM LEVEL 142 MEQ/L (136-145); TOTAL PROTEIN 5.6 GM/DL (6.4-8.2)
[2021-12-07 11:10] LABS: BASOPHILS 1 % (0-1); EOSINOPHILS 1 % (0-3); LYMPHOCYTES 14 % (16-44); METAMYELOCYTES 1 % (0-0); MONOCYTES 7 % (0-5); NEUTROPHILS 70 % (28-66)
[2021-12-07 11:11] LABS: PLATELET ESTIMATE NORMAL (NORMAL)
[2021-12-07 11:50] LABS: TOTAL PROTEIN,RANDOM URINE 100.9 MG/DL (0.0-12.0)
== END ==
LOC: M PLALAB 08:33
PROVIDERS: ATTEND Internal Medicine Nephrology
DX: D84.9 Immunodeficiency, unspecified (principal); N18.5 Chronic kidney disease, stage 5; Z94.0 Kidney transplant status; Z79.899 Other long term (current) drug therapy

== ENCOUNTER → 2022-01-02 | Outpatient (CLI) | payer MEDICARE, MEDICAID, OTHER ==
[2022-01-02 10:33] LABS: BASO % 0.6 % (0.0-1.0); EOS # 0.1 10^3/uL (0.0-0.5); EOS % 1.3 % (0.0-3.0); HEMOGLOBIN 8.9 g/dl (13.5-17.5); LYMPH # 1.2 10^3/uL (1.5-5.0); LYMPH % 22.8 % (24.0-44.0); MEAN CORPUSCULAR HEMOGLOBIN 31.1 pg (27.0-33.0); MEAN CORPUSCULAR HGB CONC 30.7 g/dl (32.0-36.5); MEAN CORPUSCULAR VOLUME 101.4 fl (80.0-96.0); MONO # 0.4 10^3/uL (0.0-0.8); MONO % 6.7 % (2.0-8.0); NEUTROPHILS # 3.7 10^3/uL (1.5-8.5); NEUTROPHILS % 68.2 % (36.0-66.0); PLATELET COUNT, AUTOMATED 195 10^3/uL (150-450); RED BLOOD COUNT 2.86 10^6/uL (4.30-6.10); WHITE BLOOD COUNT 5.4 10^3/uL (4.0-10.0)
[2022-01-02 10:38] LABS: APPEARANCE, URINE CLEAR (CLEAR); BACTERIA, URINE AUTO NEGATIVE (NEGATIVE); BILIRUBIN, URINE AUTO NEGATIVE (NEGATIVE); BLOOD, URINE BLOOD NEGATIVE (NEGATIVE); COLOR, URINE YELLOW (YELLOW); GLUCOSE, URINE (UA) AUTO NEGATIVE (NEGATIVE); KETONE, URINE AUTO NEGATIVE (NEGATIVE); LEUKOCYTE ESTERASE, URINE AUTO NEGATIVE (NEGATIVE); MUCUS, URINE SMALL (NEGATIVE); NITRITE, URINE AUTO NEGATIVE (NEGATIVE); PROTEIN, URINE AUTO 1+ mg/dL (NEGATIVE); RBC, URINE AUTO 1 /HPF (0-3); SPECIFIC GRAVITY URINE AUTO 1.013 (1.002-1.035); SQUAMOUS EPITHELIAL CELL UR AU 0 /HPF (0-6); TRANSITIONAL EPITHELIAL AUTO <1 /HPF; UROBILINOGEN, URINE AUTO 0.2 mg/dL (0.0-2.0); WBC, URINE AUTO 1 /HPF (0-3)
[2022-01-02 10:54] LABS: ALBUMIN 2.6 GM/DL (3.2-5.2); ALT/SGPT 27 U/L (12-78); BILIRUBIN,DIRECT < 0.1 MG/DL (0.0-0.2); BILIRUBIN,TOTAL 0.2 MG/DL (0.2-1.0); BLOOD UREA NITROGEN 20 MG/DL (7-18); CALCIUM LEVEL 8.5 MG/DL (8.8-10.2); CARBON DIOXIDE LEVEL 27 MEQ/L (21-32); CHLORIDE LEVEL 114 MEQ/L (98-107); CREATININE FOR GFR 1.97 MG/DL (0.70-1.30); GLOMERULAR FILTRATION RATE 36.5 (>49); GLUCOSE, FASTING 155 MG/DL (70-100); MAGNESIUM LEVEL 1.6 MG/DL (1.8-2.4); PHOSPHORUS LEVEL 3.1 MG/DL (2.5-4.9); POTASSIUM SERUM 3.5 MEQ/L (3.5-5.1); SODIUM LEVEL 146 MEQ/L (136-145); TOTAL PROTEIN 5.1 GM/DL (6.4-8.2)
[2022-01-02 11:06] LABS: TOTAL PROTEIN,RANDOM URINE 74.3 MG/DL (0.0-12.0)
== END ==
LOC: M PLALAB 08:25
PROVIDERS: ATTEND Internal Medicine Nephrology
DX: N18.5 Chronic kidney disease, stage 5 (principal); D84.9 Immunodeficiency, unspecified; Z94.0 Kidney transplant status; Z79.899 Other long term (current) drug therapy

== ENCOUNTER → 2022-01-09 | Outpatient (CLI) | payer MEDICARE, MEDICAID, OTHER ==
[2022-01-09 10:30] LABS: APPEARANCE, URINE CLEAR (CLEAR); BACTERIA, URINE AUTO NEGATIVE (NEGATIVE); BILIRUBIN, URINE AUTO NEGATIVE (NEGATIVE); BLOOD, URINE BLOOD NEGATIVE (NEGATIVE); COLOR, URINE YELLOW (YELLOW); GLUCOSE, URINE (UA) AUTO NEGATIVE (NEGATIVE); KETONE, URINE AUTO NEGATIVE (NEGATIVE); LEUKOCYTE ESTERASE, URINE AUTO NEGATIVE (NEGATIVE); MUCUS, URINE SMALL (NEGATIVE); NITRITE, URINE AUTO NEGATIVE (NEGATIVE); PROTEIN, URINE AUTO 2+ mg/dL (NEGATIVE); RBC, URINE AUTO 0 /HPF (0-3); SPECIFIC GRAVITY URINE AUTO 1.013 (1.002-1.035); SQUAMOUS EPITHELIAL CELL UR AU 1 /HPF (0-6); UROBILINOGEN, URINE AUTO 0.2 mg/dL (0.0-2.0); WBC, URINE AUTO 1 /HPF (0-3)
[2022-01-09 10:31] LABS: BASO # 0.1 10^3/uL (0.0-0.2); BASO % 1.3 % (0.0-1.0); EOS # 0.1 10^3/uL (0.0-0.5); EOS % 2.6 % (0.0-3.0); HEMATOCRIT 33.4 % (42.0-52.0); HEMOGLOBIN 10.4 g/dl (13.5-17.5); LYMPH # 1.2 10^3/uL (1.5-5.0); LYMPH % 31.1 % (24.0-44.0); MEAN CORPUSCULAR HEMOGLOBIN 32.1 pg (27.0-33.0); MEAN CORPUSCULAR HGB CONC 31.1 g/dl (32.0-36.5); MEAN CORPUSCULAR VOLUME 103.1 fl (80.0-96.0); MONO # 0.2 10^3/uL (0.0-0.8); MONO % 5.7 % (2.0-8.0); NEUTROPHILS # 2.3 10^3/uL (1.5-8.5); NEUTROPHILS % 58.5 % (36.0-66.0); PLATELET COUNT, AUTOMATED 279 10^3/uL (150-450); RED BLOOD COUNT 3.24 10^6/uL (4.30-6.10); WHITE BLOOD COUNT 3.9 10^3/uL (4.0-10.0)
[2022-01-09 10:55] LABS: TOTAL PROTEIN,RANDOM URINE 78.1 MG/DL (0.0-12.0)
[2022-01-09 11:05] LABS: ALBUMIN 2.8 GM/DL (3.2-5.2); ALT/SGPT 28 U/L (12-78); BILIRUBIN,DIRECT < 0.1 MG/DL (0.0-0.2); BILIRUBIN,TOTAL 0.3 MG/DL (0.2-1.0); BLOOD UREA NITROGEN 18 MG/DL (7-18); CALCIUM LEVEL 8.6 MG/DL (8.8-10.2); CARBON DIOXIDE LEVEL 27 MEQ/L (21-32); CHLORIDE LEVEL 114 MEQ/L (98-107); CREATININE FOR GFR 1.84 MG/DL (0.70-1.30); GLOMERULAR FILTRATION RATE 39.5 (>49); GLUCOSE, FASTING 149 MG/DL (70-100); MAGNESIUM LEVEL 1.7 MG/DL (1.8-2.4); PHOSPHORUS LEVEL 3.4 MG/DL (2.5-4.9); POTASSIUM SERUM 3.7 MEQ/L (3.5-5.1); SODIUM LEVEL 146 MEQ/L (136-145); TOTAL PROTEIN 5.5 GM/DL (6.4-8.2)
== END ==
LOC: M LAB 07:57 → M PLALAB 07:57
PROVIDERS: ATTEND Internal Medicine Nephrology
DX: D84.9 Immunodeficiency, unspecified (principal); Z94.0 Kidney transplant status; N18.5 Chronic kidney disease, stage 5; Z79.899 Other long term (current) drug therapy

== ENCOUNTER → 2022-01-16 | Outpatient (CLI) | payer MEDICARE, MEDICAID, OTHER ==
[2022-01-16 10:23] LABS: BASO # 0.1 10^3/uL (0.0-0.2); BASO % 1.1 % (0.0-1.0); EOS # 0.1 10^3/uL (0.0-0.5); EOS % 0.8 % (0.0-3.0); HEMATOCRIT 32.1 % (42.0-52.0); LYMPH # 1.3 10^3/uL (1.5-5.0); MEAN CORPUSCULAR HEMOGLOBIN 31.7 pg (27.0-33.0); MEAN CORPUSCULAR HGB CONC 31.2 g/dl (32.0-36.5); MEAN CORPUSCULAR VOLUME 101.9 fl (80.0-96.0); MONO # 0.6 10^3/uL (0.0-0.8); MONO % 9.9 % (2.0-8.0); NEUTROPHILS # 4.1 10^3/uL (1.5-8.5); NEUTROPHILS % 66.1 % (36.0-66.0); PLATELET COUNT, AUTOMATED 251 10^3/uL (150-450); RED BLOOD COUNT 3.15 10^6/uL (4.30-6.10); WHITE BLOOD COUNT 6.2 10^3/uL (4.0-10.0)
[2022-01-16 10:36] LABS: APPEARANCE, URINE CLEAR (CLEAR); BACTERIA, URINE AUTO NEGATIVE (NEGATIVE); BILIRUBIN, URINE AUTO NEGATIVE (NEGATIVE); BLOOD, URINE BLOOD NEGATIVE (NEGATIVE); COLOR, URINE YELLOW (YELLOW); GLUCOSE, URINE (UA) AUTO NEGATIVE (NEGATIVE); KETONE, URINE AUTO NEGATIVE (NEGATIVE); LEUKOCYTE ESTERASE, URINE AUTO NEGATIVE (NEGATIVE); NITRITE, URINE AUTO NEGATIVE (NEGATIVE); PROTEIN, URINE AUTO 1+ mg/dL (NEGATIVE); RBC, URINE AUTO 0 /HPF (0-3); SPECIFIC GRAVITY URINE AUTO 1.014 (1.002-1.035); SQUAMOUS EPITHELIAL CELL UR AU 0 /HPF (0-6); UROBILINOGEN, URINE AUTO 0.2 mg/dL (0.0-2.0); WBC, URINE AUTO 1 /HPF (0-3)
[2022-01-16 10:39] LABS: ALBUMIN 2.7 GM/DL (3.2-5.2); BILIRUBIN,DIRECT 0.1 MG/DL (0.0-0.2); BILIRUBIN,TOTAL 0.4 MG/DL (0.2-1.0); CALCIUM LEVEL 8.3 MG/DL (8.8-10.2); CREATININE FOR GFR 1.89 MG/DL (0.70-1.30); GLOMERULAR FILTRATION RATE 38.3 (>49); PHOSPHORUS LEVEL 3.4 MG/DL (2.5-4.9); POTASSIUM SERUM 4.4 MEQ/L (3.5-5.1); TOTAL PROTEIN 5.4 GM/DL (6.4-8.2)
[2022-01-16 11:04] LABS: TOTAL PROTEIN,RANDOM URINE 60.7 MG/DL (0.0-12.0)
== END ==
LOC: M PLALAB 08:16
PROVIDERS: ATTEND Internal Medicine Nephrology
DX: Z94.0 Kidney transplant status (principal); N18.5 Chronic kidney disease, stage 5; D84.9 Immunodeficiency, unspecified; Z79.899 Other long term (current) drug therapy

== ENCOUNTER → 2022-01-23 | Outpatient (CLI) | payer MEDICARE, MEDICAID, OTHER ==
[2022-01-23 10:26] LABS: ALBUMIN 2.9 GM/DL (3.2-5.2); BILIRUBIN,DIRECT 0.1 MG/DL (0.0-0.2); BILIRUBIN,TOTAL 0.5 MG/DL (0.2-1.0); CALCIUM LEVEL 9.2 MG/DL (8.8-10.2); CREATININE FOR GFR 1.81 MG/DL (0.70-1.30); GLOMERULAR FILTRATION RATE 40.3 (>49); MAGNESIUM LEVEL 1.7 MG/DL (1.8-2.4); PHOSPHORUS LEVEL 3.7 MG/DL (2.5-4.9); POTASSIUM SERUM 4.3 MEQ/L (3.5-5.1); TOTAL PROTEIN 5.6 GM/DL (6.4-8.2)
[2022-01-23 10:37] LABS: BASO # 0.1 10^3/uL (0.0-0.2); BASO % 1.6 % (0.0-1.0); EOS # 0.1 10^3/uL (0.0-0.5); EOS % 1.4 % (0.0-3.0); HEMATOCRIT 35.2 % (42.0-52.0); LYMPH # 1.2 10^3/uL (1.5-5.0); LYMPH % 24.3 % (24.0-44.0); MEAN CORPUSCULAR HEMOGLOBIN 32.2 pg (27.0-33.0); MEAN CORPUSCULAR HGB CONC 31.3 g/dl (32.0-36.5); MEAN CORPUSCULAR VOLUME 102.9 fl (80.0-96.0); MONO # 0.3 10^3/uL (0.0-0.8); MONO % 6.5 % (2.0-8.0); NEUTROPHILS # 3.2 10^3/uL (1.5-8.5); NEUTROPHILS % 64.8 % (36.0-66.0); PLATELET COUNT, AUTOMATED 286 10^3/uL (150-450); RED BLOOD COUNT 3.42 10^6/uL (4.30-6.10); WHITE BLOOD COUNT 4.9 10^3/uL (4.0-10.0)
[2022-01-23 10:40] LABS: APPEARANCE, URINE CLEAR (CLEAR); BACTERIA, URINE AUTO NEGATIVE (NEGATIVE); BILIRUBIN, URINE AUTO NEGATIVE (NEGATIVE); BLOOD, URINE BLOOD NEGATIVE (NEGATIVE); COLOR, URINE YELLOW (YELLOW); GLUCOSE, URINE (UA) AUTO NEGATIVE (NEGATIVE); KETONE, URINE AUTO NEGATIVE (NEGATIVE); LEUKOCYTE ESTERASE, URINE AUTO NEGATIVE (NEGATIVE); MUCUS, URINE SMALL (NEGATIVE); NITRITE, URINE AUTO NEGATIVE (NEGATIVE); PROTEIN, URINE AUTO 2+ mg/dL (NEGATIVE); RBC, URINE AUTO 0 /HPF (0-3); SPECIFIC GRAVITY URINE AUTO 1.012 (1.002-1.035); SQUAMOUS EPITHELIAL CELL UR AU 1 /HPF (0-6); UROBILINOGEN, URINE AUTO 0.2 mg/dL (0.0-2.0); WBC, URINE AUTO 1 /HPF (0-3)
== END ==
LOC: M PLALAB 08:06
PROVIDERS: ATTEND Internal Medicine Nephrology
DX: N18.5 Chronic kidney disease, stage 5 (principal); D84.9 Immunodeficiency, unspecified; Z94.0 Kidney transplant status; Z79.899 Other long term (current) drug therapy

== ENCOUNTER → 2022-01-30 | Outpatient (CLI) | payer MEDICARE, MEDICAID, OTHER ==
[2022-01-30 11:09] LABS: APPEARANCE, URINE HAZY (CLEAR); BACTERIA, URINE AUTO NEGATIVE (NEGATIVE); BILIRUBIN, URINE AUTO NEGATIVE (NEGATIVE); BLOOD, URINE BLOOD NEGATIVE (NEGATIVE); COLOR, URINE YELLOW (YELLOW); GLUCOSE, URINE (UA) AUTO NEGATIVE (NEGATIVE); KETONE, URINE AUTO NEGATIVE (NEGATIVE); LEUKOCYTE ESTERASE, URINE AUTO NEGATIVE (NEGATIVE); NITRITE, URINE AUTO NEGATIVE (NEGATIVE); PROTEIN, URINE AUTO 1+ mg/dL (NEGATIVE); RBC, URINE AUTO 1 /HPF (0-3); SPECIFIC GRAVITY URINE AUTO 1.016 (1.002-1.035); SQUAMOUS EPITHELIAL CELL UR AU 1 /HPF (0-6); WBC, URINE AUTO 2 /HPF (0-3)
[2022-01-30 11:10] LABS: BASO % 1.4 % (0.0-1.0); EOS % 1.6 % (0.0-3.0); HEMATOCRIT 36.8 % (42.0-52.0); HEMOGLOBIN 11.5 g/dl (13.5-17.5); LYMPH % 22.8 % (24.0-44.0); MEAN CORPUSCULAR HEMOGLOBIN 32.6 pg (27.0-33.0); MEAN CORPUSCULAR HGB CONC 31.3 g/dl (32.0-36.5); MEAN CORPUSCULAR VOLUME 104.2 fl (80.0-96.0); MONO % 3.6 % (2.0-8.0); NEUTROPHILS % 69.5 % (36.0-66.0); PLATELET COUNT, AUTOMATED 287 10^3/uL (150-450); RED BLOOD COUNT 3.53 10^6/uL (4.30-6.10); WHITE BLOOD COUNT 5.5 10^3/uL (4.0-10.0)
[2022-01-30 11:11] LABS: BASO # 0.1 10^3/uL (0.0-0.2); EOS # 0.1 10^3/uL (0.0-0.5); LYMPH # 1.3 10^3/uL (1.5-5.0); MONO # 0.2 10^3/uL (0.0-0.8); NEUTROPHILS # 3.8 10^3/uL (1.5-8.5)
[2022-01-30 11:37] LABS: ALBUMIN 3.1 GM/DL (3.2-5.2); BILIRUBIN,DIRECT 0.1 MG/DL (0.0-0.2); BILIRUBIN,TOTAL 0.2 MG/DL (0.2-1.0); CALCIUM LEVEL 8.7 MG/DL (8.8-10.2); CREATININE FOR GFR 2.29 MG/DL (0.70-1.30); GLOMERULAR FILTRATION RATE 30.7 (>49); POTASSIUM SERUM 4.4 MEQ/L (3.5-5.1); TOTAL PROTEIN 5.8 GM/DL (6.4-8.2)
[2022-01-30 11:38] LABS: TOTAL PROTEIN,RANDOM URINE 54.5 MG/DL (0.0-12.0)
== END ==
LOC: M PLALAB 08:32
PROVIDERS: ATTEND Internal Medicine Nephrology
DX: Z94.0 Kidney transplant status (principal); D84.9 Immunodeficiency, unspecified; Z79.899 Other long term (current) drug therapy

== ENCOUNTER 2022-02-02 12:20 | Outpatient (CLI) | payer MEDICARE, MEDICAID, OTHER ==
[~2022-02-02] VITALS: Ht 167.6 cm; Wt 68.0 kg
[2022-02-02] MEDS ORDERED: BELATACEPT IV ONE (12:30)
[2022-02-02] MEDS ORDERED: NS IV ONE (12:30)
[2022-02-02 12:56] VITALS: BP 147/85
[2022-02-02 13:43] VITALS: BP 154/83
== END 2022-02-02 13:45 | disposition home or self-care (01) ==
LOC: M INFU 12:20
PROVIDERS: ATTEND Internal Medicine Nephrology
DX: Z94.0 Kidney transplant status (principal); Z91.048 Other nonmedicinal substance allergy status
CPT/HCPCS: 96365; J0485

== ENCOUNTER → 2022-02-06 | Outpatient (CLI) | payer MEDICARE, MEDICAID, OTHER ==
[2022-02-06 10:40] LABS: HEMATOCRIT 37.3 % (42.0-52.0); MEAN CORPUSCULAR HEMOGLOBIN 33.3 pg (27.0-33.0); MEAN CORPUSCULAR HGB CONC 32.2 g/dl (32.0-36.5); MEAN CORPUSCULAR VOLUME 103.6 fl (80.0-96.0); PLATELET COUNT, AUTOMATED 281 10^3/uL (150-450); WHITE BLOOD COUNT 5.6 10^3/uL (4.0-10.0)
[2022-02-06 10:45] LABS: TOTAL PROTEIN,RANDOM URINE 61.8 MG/DL (0.0-12.0)
[2022-02-06 10:58] LABS: AMORPHOUS SEDIMENT SMALL (NEGATIVE); APPEARANCE, URINE HAZY (CLEAR); BACTERIA, URINE AUTO 1+ (NEGATIVE); BILIRUBIN, URINE AUTO NEGATIVE (NEGATIVE); BLOOD, URINE BLOOD NEGATIVE (NEGATIVE); COLOR, URINE YELLOW (YELLOW); GLUCOSE, URINE (UA) AUTO NEGATIVE (NEGATIVE); KETONE, URINE AUTO NEGATIVE (NEGATIVE); LEUKOCYTE ESTERASE, URINE AUTO NEGATIVE (NEGATIVE); MUCUS, URINE SMALL (NEGATIVE); NITRITE, URINE AUTO NEGATIVE (NEGATIVE); PROTEIN, URINE AUTO 2+ mg/dL (NEGATIVE); RBC, URINE AUTO 1 /HPF (0-3); SPECIFIC GRAVITY URINE AUTO 1.014 (1.002-1.035); SQUAMOUS EPITHELIAL CELL UR AU 2 /HPF (0-6); WBC, URINE AUTO 4 /HPF (0-3)
[2022-02-06 11:05] LABS: ALBUMIN 3.1 GM/DL (3.2-5.2); ALT/SGPT 30 U/L (12-78); BILIRUBIN,DIRECT < 0.1 MG/DL (0.0-0.2); BILIRUBIN,TOTAL 0.3 MG/DL (0.2-1.0); BLOOD UREA NITROGEN 24 MG/DL (7-18); CALCIUM LEVEL 9.3 MG/DL (8.8-10.2); CARBON DIOXIDE LEVEL 24 MEQ/L (21-32); CHLORIDE LEVEL 116 MEQ/L (98-107); CREATININE FOR GFR 2.43 MG/DL (0.70-1.30); GLOMERULAR FILTRATION RATE 28.7 (>49); GLUCOSE, FASTING 208 MG/DL (70-100); MAGNESIUM LEVEL 1.9 MG/DL (1.8-2.4); PHOSPHORUS LEVEL 4.3 MG/DL (2.5-4.9); SODIUM LEVEL 145 MEQ/L (136-145); TOTAL PROTEIN 6.1 GM/DL (6.4-8.2)
[2022-02-06 12:06] LABS: ATYPICAL LYMPH 3 % (0-5); LYMPHOCYTES 14 % (16-44); MONOCYTES 4 % (0-5); NEUTROPHILS 79 % (28-66)
[2022-02-06 12:07] LABS: PLATELET ESTIMATE NORMAL (NORMAL)
== END ==
LOC: M PLALAB 07:58
PROVIDERS: ATTEND Internal Medicine Nephrology
DX: Z94.0 Kidney transplant status (principal); N18.5 Chronic kidney disease, stage 5; D84.9 Immunodeficiency, unspecified; Z79.899 Other long term (current) drug therapy

== ENCOUNTER → 2022-02-14 | Outpatient (CLI) | payer MEDICARE, MEDICAID, OTHER ==
[2022-02-14 13:56] LABS: APPEARANCE, URINE CLEAR (CLEAR); BACTERIA, URINE AUTO NEGATIVE (NEGATIVE); BILIRUBIN, URINE AUTO NEGATIVE (NEGATIVE); BLOOD, URINE BLOOD NEGATIVE (NEGATIVE); COLOR, URINE STRAW (YELLOW); GLUCOSE, URINE (UA) AUTO NEGATIVE (NEGATIVE); KETONE, URINE AUTO NEGATIVE (NEGATIVE); LEUKOCYTE ESTERASE, URINE AUTO NEGATIVE (NEGATIVE); NITRITE, URINE AUTO NEGATIVE (NEGATIVE); PROTEIN, URINE AUTO NEGATIVE (NEGATIVE); RBC, URINE AUTO 0 /HPF (0-3); SPECIFIC GRAVITY URINE AUTO 1.008 (1.002-1.035); SQUAMOUS EPITHELIAL CELL UR AU 0 /HPF (0-6); UROBILINOGEN, URINE AUTO 0.2 mg/dL (0.0-2.0); WBC, URINE AUTO 0 /HPF (0-3)
[2022-02-14 13:57] LABS: BASO # 0.1 10^3/uL (0.0-0.2); BASO % 1.3 % (0.0-1.0); EOS % 0.3 % (0.0-3.0); HEMATOCRIT 37.5 % (42.0-52.0); HEMOGLOBIN 12.2 g/dl (13.5-17.5); LYMPH # 1.7 10^3/uL (1.5-5.0); MEAN CORPUSCULAR HEMOGLOBIN 33.4 pg (27.0-33.0); MEAN CORPUSCULAR HGB CONC 32.5 g/dl (32.0-36.5); MEAN CORPUSCULAR VOLUME 102.7 fl (80.0-96.0); MONO # 0.3 10^3/uL (0.0-0.8); MONO % 4.6 % (2.0-8.0); NEUTROPHILS # 4.2 10^3/uL (1.5-8.5); NEUTROPHILS % 66.5 % (36.0-66.0); PLATELET COUNT, AUTOMATED 258 10^3/uL (150-450); RED BLOOD COUNT 3.65 10^6/uL (4.30-6.10); WHITE BLOOD COUNT 6.3 10^3/uL (4.0-10.0)
[2022-02-14 14:22] LABS: ALBUMIN 3.5 GM/DL (3.2-5.2); BILIRUBIN,DIRECT 0.1 MG/DL (0.0-0.2); BILIRUBIN,TOTAL 0.4 MG/DL (0.2-1.0); CALCIUM LEVEL 9.1 MG/DL (8.8-10.2); CREATININE FOR GFR 2.53 MG/DL (0.70-1.30); GLOMERULAR FILTRATION RATE 27.4 (>49); PHOSPHORUS LEVEL 4.3 MG/DL (2.5-4.9); POTASSIUM SERUM 4.8 MEQ/L (3.5-5.1); TOTAL PROTEIN 6.4 GM/DL (6.4-8.2)
[2022-02-14 14:23] LABS: CREATININE,RANDOM URINE 50.8 MG/DL; TOTAL PROTEIN,RANDOM URINE 25.4 MG/DL (0.0-12.0)
== END ==
LOC: M PLALAB 10:15
PROVIDERS: ATTEND Internal Medicine Nephrology
DX: Z94.0 Kidney transplant status (principal); Z79.899 Other long term (current) drug therapy; D84.9 Immunodeficiency, unspecified

== ENCOUNTER → 2022-02-20 | Outpatient (CLI) | payer MEDICARE, MEDICAID, OTHER ==
[2022-02-20 10:44] LABS: BASO # 0.1 10^3/uL (0.0-0.2); BASO % 1.4 % (0.0-1.0); EOS % 0.5 % (0.0-3.0); HEMATOCRIT 40.5 % (42.0-52.0); HEMOGLOBIN 13.2 g/dl (13.5-17.5); LYMPH # 1.6 10^3/uL (1.5-5.0); LYMPH % 24.7 % (24.0-44.0); MEAN CORPUSCULAR HEMOGLOBIN 33.3 pg (27.0-33.0); MEAN CORPUSCULAR HGB CONC 32.6 g/dl (32.0-36.5); MEAN CORPUSCULAR VOLUME 102.3 fl (80.0-96.0); MONO # 0.3 10^3/uL (0.0-0.8); MONO % 4.7 % (2.0-8.0); NEUTROPHILS # 4.3 10^3/uL (1.5-8.5); NEUTROPHILS % 66.7 % (36.0-66.0); PLATELET COUNT, AUTOMATED 263 10^3/uL (150-450); RED BLOOD COUNT 3.96 10^6/uL (4.30-6.10); WHITE BLOOD COUNT 6.4 10^3/uL (4.0-10.0)
[2022-02-20 10:45] LABS: APPEARANCE, URINE CLEAR (CLEAR); BACTERIA, URINE AUTO NEGATIVE (NEGATIVE); BILIRUBIN, URINE AUTO NEGATIVE (NEGATIVE); BLOOD, URINE BLOOD NEGATIVE (NEGATIVE); COLOR, URINE YELLOW (YELLOW); GLUCOSE, URINE (UA) AUTO NEGATIVE (NEGATIVE); KETONE, URINE AUTO NEGATIVE (NEGATIVE); LEUKOCYTE ESTERASE, URINE AUTO NEGATIVE (NEGATIVE); NITRITE, URINE AUTO NEGATIVE (NEGATIVE); PROTEIN, URINE AUTO 1+ mg/dL (NEGATIVE); RBC, URINE AUTO 0 /HPF (0-3); SPECIFIC GRAVITY URINE AUTO 1.014 (1.002-1.035); SQUAMOUS EPITHELIAL CELL UR AU 1 /HPF (0-6); WBC, URINE AUTO 1 /HPF (0-3)
[2022-02-20 11:09] LABS: ALBUMIN 3.4 GM/DL (3.2-5.2); BILIRUBIN,DIRECT 0.1 MG/DL (0.0-0.2); BILIRUBIN,TOTAL 0.4 MG/DL (0.2-1.0); CALCIUM LEVEL 8.6 MG/DL (8.8-10.2); CREATININE FOR GFR 2.29 MG/DL (0.70-1.30); GLOMERULAR FILTRATION RATE 30.7 (>49); PHOSPHORUS LEVEL 3.9 MG/DL (2.5-4.9); POTASSIUM SERUM 4.4 MEQ/L (3.5-5.1); TOTAL PROTEIN 7.1 GM/DL (6.4-8.2)
[2022-02-20 11:10] LABS: MAGNESIUM LEVEL 1.8 MG/DL (1.8-2.4)
[2022-02-20 11:17] LABS: TOTAL PROTEIN,RANDOM URINE 63.9 MG/DL (0.0-12.0)
== END ==
LOC: M PLALAB 07:38
PROVIDERS: ATTEND Internal Medicine Nephrology
DX: Z94.0 Kidney transplant status (principal); Z79.899 Other long term (current) drug therapy; D84.9 Immunodeficiency, unspecified

== ENCOUNTER → 2022-02-27 | Outpatient (CLI) | payer MEDICARE, MEDICAID, OTHER ==
[2022-02-27 10:30] LABS: APPEARANCE, URINE CLEAR (CLEAR); BACTERIA, URINE AUTO NEGATIVE (NEGATIVE); BILIRUBIN, URINE AUTO NEGATIVE (NEGATIVE); BLOOD, URINE BLOOD NEGATIVE (NEGATIVE); COLOR, URINE STRAW (YELLOW); GLUCOSE, URINE (UA) AUTO NEGATIVE (NEGATIVE); KETONE, URINE AUTO NEGATIVE (NEGATIVE); LEUKOCYTE ESTERASE, URINE AUTO NEGATIVE (NEGATIVE); NITRITE, URINE AUTO NEGATIVE (NEGATIVE); PROTEIN, URINE AUTO NEGATIVE (NEGATIVE); RBC, URINE AUTO 0 /HPF (0-3); SPECIFIC GRAVITY URINE AUTO 1.005 (1.002-1.035); SQUAMOUS EPITHELIAL CELL UR AU 1 /HPF (0-6); UROBILINOGEN, URINE AUTO 0.2 mg/dL (0.0-2.0); WBC, URINE AUTO 0 /HPF (0-3)
[2022-02-27 10:33] LABS: HEMATOCRIT 41.9 % (42.0-52.0); HEMOGLOBIN 13.6 g/dl (13.5-17.5); MEAN CORPUSCULAR HEMOGLOBIN 33.1 pg (27.0-33.0); MEAN CORPUSCULAR HGB CONC 32.5 g/dl (32.0-36.5); MEAN CORPUSCULAR VOLUME 101.9 fl (80.0-96.0); PLATELET COUNT, AUTOMATED 253 10^3/uL (150-450); RED BLOOD COUNT 4.11 10^6/uL (4.30-6.10); WHITE BLOOD COUNT 6.1 10^3/uL (4.0-10.0)
[2022-02-27 10:53] LABS: ATYPICAL LYMPH 2 % (0-5); LYMPHOCYTES 24 % (16-44); MONOCYTES 1 % (0-5); NEUTROPHILS 71 % (28-66)
[2022-02-27 10:54] LABS: CREATININE,RANDOM URINE 65.8 MG/DL; PLATELET ESTIMATE NORMAL (NORMAL); TOTAL PROTEIN,RANDOM URINE 18.3 MG/DL (0.0-12.0)
[2022-02-27 11:00] LABS: ALBUMIN 3.4 GM/DL (3.2-5.2); BILIRUBIN,DIRECT 0.2 MG/DL (0.0-0.2); BILIRUBIN,TOTAL 0.4 MG/DL (0.2-1.0); CALCIUM LEVEL 8.9 MG/DL (8.8-10.2); CREATININE FOR GFR 2.39 MG/DL (0.70-1.30); GLOMERULAR FILTRATION RATE 29.2 (>49); MAGNESIUM LEVEL 2.1 MG/DL (1.8-2.4); PHOSPHORUS LEVEL 4.7 MG/DL (2.5-4.9); TOTAL PROTEIN 6.5 GM/DL (6.4-8.2)
== END ==
LOC: M PLALAB 08:06
PROVIDERS: ATTEND Internal Medicine Nephrology
DX: Z94.0 Kidney transplant status (principal); N18.6 End stage renal disease; D84.9 Immunodeficiency, unspecified; Z79.899 Other long term (current) drug therapy

== ENCOUNTER 2022-03-03 12:20 | Outpatient (CLI) | payer MEDICARE, MEDICAID, OTHER ==
[~2022-03-03] VITALS: Ht 167.6 cm; Wt 65.9 kg
[2022-03-03 12:30] VITALS: BP 138/76
[2022-03-03] MEDS ORDERED: NS IV ONE (12:30)
[2022-03-03] MEDS ORDERED: BELATACEPT IV ONE (12:30)
[2022-03-03 14:00] VITALS: BP 130/88
== END 2022-03-03 14:00 | disposition home or self-care (01) ==
LOC: M INFU 12:20
PROVIDERS: ATTEND Internal Medicine Nephrology
DX: Z94.0 Kidney transplant status (principal); Z91.048 Other nonmedicinal substance allergy status
CPT/HCPCS: 96365; J0485

== ENCOUNTER → 2022-03-07 | Outpatient (CLI) | payer MEDICARE, MEDICAID, OTHER ==
[2022-03-07 10:25] LABS: APPEARANCE, URINE CLEAR (CLEAR); BACTERIA, URINE AUTO NEGATIVE (NEGATIVE); BILIRUBIN, URINE AUTO NEGATIVE (NEGATIVE); BLOOD, URINE BLOOD NEGATIVE (NEGATIVE); COLOR, URINE YELLOW (YELLOW); GLUCOSE, URINE (UA) AUTO NEGATIVE (NEGATIVE); KETONE, URINE AUTO NEGATIVE (NEGATIVE); LEUKOCYTE ESTERASE, URINE AUTO NEGATIVE (NEGATIVE); NITRITE, URINE AUTO NEGATIVE (NEGATIVE); PROTEIN, URINE AUTO NEGATIVE (NEGATIVE); RBC, URINE AUTO 0 /HPF (0-3); SQUAMOUS EPITHELIAL CELL UR AU 0 /HPF (0-6); UROBILINOGEN, URINE AUTO 0.2 mg/dL (0.0-2.0); WBC, URINE AUTO 0 /HPF (0-3)
[2022-03-07 10:28] LABS: HEMATOCRIT 39.2 % (42.0-52.0); HEMOGLOBIN 12.8 g/dl (13.5-17.5); MEAN CORPUSCULAR HEMOGLOBIN 33.7 pg (27.0-33.0); MEAN CORPUSCULAR HGB CONC 32.7 g/dl (32.0-36.5); MEAN CORPUSCULAR VOLUME 103.2 fl (80.0-96.0); PLATELET COUNT, AUTOMATED 219 10^3/uL (150-450); WHITE BLOOD COUNT 3.6 10^3/uL (4.0-10.0)
[2022-03-07 10:34] LABS: ALBUMIN 3.4 GM/DL (3.2-5.2); BILIRUBIN,DIRECT 0.2 MG/DL (0.0-0.2); BILIRUBIN,TOTAL 0.3 MG/DL (0.2-1.0); CREATININE FOR GFR 2.04 MG/DL (0.70-1.30); GLOMERULAR FILTRATION RATE 35.1 (>49); PHOSPHORUS LEVEL 4.6 MG/DL (2.5-4.9); POTASSIUM SERUM 4.7 MEQ/L (3.5-5.1); TOTAL PROTEIN 6.2 GM/DL (6.4-8.2)
[2022-03-07 10:49] LABS: ANISOCYTOSIS 1+; ATYPICAL LYMPH 1 % (0-5); BASOPHILS 2 % (0-1); EOSINOPHILS 1 % (0-3); LYMPHOCYTES 18 % (16-44); METAMYELOCYTES 1 % (0-0); MONOCYTES 5 % (0-5); NEUTROPHILS 72 % (28-66); PLATELET ESTIMATE NORMAL (NORMAL)
[2022-03-07 10:57] LABS: CREATININE,RANDOM URINE 65.2 MG/DL; TOTAL PROTEIN,RANDOM URINE 35.7 MG/DL (0.0-12.0)
== END ==
LOC: M PLALAB 07:53
PROVIDERS: ATTEND Internal Medicine Nephrology
DX: N18.5 Chronic kidney disease, stage 5 (principal); D84.9 Immunodeficiency, unspecified; Z94.0 Kidney transplant status; Z79.899 Other long term (current) drug therapy

== ENCOUNTER → 2022-03-21 | Outpatient (CLI) | payer MEDICARE, MEDICAID, OTHER ==
[2022-03-21 11:01] LABS: APPEARANCE, URINE CLEAR (CLEAR); BACTERIA, URINE AUTO NEGATIVE (NEGATIVE); BILIRUBIN, URINE AUTO NEGATIVE (NEGATIVE); BLOOD, URINE BLOOD NEGATIVE (NEGATIVE); COLOR, URINE YELLOW (YELLOW); GLUCOSE, URINE (UA) AUTO NEGATIVE (NEGATIVE); KETONE, URINE AUTO NEGATIVE (NEGATIVE); LEUKOCYTE ESTERASE, URINE AUTO NEGATIVE (NEGATIVE); NITRITE, URINE AUTO NEGATIVE (NEGATIVE); PROTEIN, URINE AUTO 1+ mg/dL (NEGATIVE); RBC, URINE AUTO 0 /HPF (0-3); SPECIFIC GRAVITY URINE AUTO 1.013 (1.002-1.035); SQUAMOUS EPITHELIAL CELL UR AU 0 /HPF (0-6); UROBILINOGEN, URINE AUTO 0.2 mg/dL (0.0-2.0); WBC, URINE AUTO 0 /HPF (0-3)
[2022-03-21 11:07] LABS: BASO # 0.1 10^3/uL (0.0-0.2); BASO % 2.5 % (0.0-1.0); EOS # 0.1 10^3/uL (0.0-0.5); EOS % 1.3 % (0.0-3.0); HEMATOCRIT 43.5 % (42.0-52.0); HEMOGLOBIN 14.4 g/dl (13.5-17.5); LYMPH # 1.7 10^3/uL (1.5-5.0); MEAN CORPUSCULAR HEMOGLOBIN 33.3 pg (27.0-33.0); MEAN CORPUSCULAR HGB CONC 33.1 g/dl (32.0-36.5); MEAN CORPUSCULAR VOLUME 100.7 fl (80.0-96.0); MONO # 0.2 10^3/uL (0.0-0.8); MONO % 4.1 % (2.0-8.0); NEUTROPHILS # 1.8 10^3/uL (1.5-8.5); NEUTROPHILS % 46.1 % (36.0-66.0); PLATELET COUNT, AUTOMATED 191 10^3/uL (150-450); RED BLOOD COUNT 4.32 10^6/uL (4.30-6.10)
[2022-03-21 11:22] LABS: TOTAL PROTEIN,RANDOM URINE 45.4 MG/DL (0.0-12.0)
[2022-03-21 11:37] LABS: ALBUMIN 3.7 GM/DL (3.2-5.2); BILIRUBIN,DIRECT 0.2 MG/DL (0.0-0.2); BILIRUBIN,TOTAL 0.5 MG/DL (0.2-1.0); CALCIUM LEVEL 9.6 MG/DL (8.8-10.2); CREATININE FOR GFR 2.33 MG/DL (0.70-1.30); GLOMERULAR FILTRATION RATE 30.1 (>49); MAGNESIUM LEVEL 1.9 MG/DL (1.8-2.4); PHOSPHORUS LEVEL 4.6 MG/DL (2.5-4.9); POTASSIUM SERUM 4.9 MEQ/L (3.5-5.1); TOTAL PROTEIN 6.8 GM/DL (6.4-8.2)
== END ==
LOC: M PLALAB 07:47
PROVIDERS: ATTEND Internal Medicine Nephrology
DX: Z94.0 Kidney transplant status (principal); N18.5 Chronic kidney disease, stage 5; D84.9 Immunodeficiency, unspecified; Z79.899 Other long term (current) drug therapy

== ENCOUNTER 2022-03-30 12:55 | Outpatient (CLI) | payer MEDICARE, MEDICAID, OTHER ==
[~2022-03-30] VITALS: Ht 167.6 cm; Wt 65.9 kg
[2022-03-30 12:55] VITALS: BP 144/84
[~2022-03-30 12:55] MED LIST changes: +BELATACEPT IV ONE; +NS IV ONE
[2022-03-30 14:20] VITALS: BP 152/87
== END 2022-03-30 14:20 | disposition home or self-care (01) ==
LOC: M INFU 12:55
PROVIDERS: ATTEND Internal Medicine Nephrology
DX: Z94.0 Kidney transplant status (principal); Z91.048 Other nonmedicinal substance allergy status
CPT/HCPCS: 96365; J0485

== ENCOUNTER → 2022-04-03 | Outpatient (CLI) | payer MEDICARE, MEDICAID, OTHER ==
[~2022-04-03] MED LIST changes: -BELATACEPT IV ONE; -NS IV ONE
[2022-04-03 11:08] LABS: HEMATOCRIT 44.2 % (42.0-52.0); HEMOGLOBIN 14.5 g/dl (13.5-17.5); MEAN CORPUSCULAR HEMOGLOBIN 33.3 pg (27.0-33.0); MEAN CORPUSCULAR HGB CONC 32.8 g/dl (32.0-36.5); MEAN CORPUSCULAR VOLUME 101.4 fl (80.0-96.0); PLATELET COUNT, AUTOMATED 283 10^3/uL (150-450); RED BLOOD COUNT 4.36 10^6/uL (4.30-6.10); WHITE BLOOD COUNT 5.1 10^3/uL (4.0-10.0)
[2022-04-03 11:18] LABS: APPEARANCE, URINE CLEAR (CLEAR); BACTERIA, URINE AUTO NEGATIVE (NEGATIVE); BILIRUBIN, URINE AUTO NEGATIVE (NEGATIVE); BLOOD, URINE BLOOD NEGATIVE (NEGATIVE); COLOR, URINE YELLOW (YELLOW); GLUCOSE, URINE (UA) AUTO NEGATIVE (NEGATIVE); KETONE, URINE AUTO NEGATIVE (NEGATIVE); LEUKOCYTE ESTERASE, URINE AUTO NEGATIVE (NEGATIVE); NITRITE, URINE AUTO NEGATIVE (NEGATIVE); PROTEIN, URINE AUTO NEGATIVE (NEGATIVE); RBC, URINE AUTO 0 /HPF (0-3); SPECIFIC GRAVITY URINE AUTO 1.008 (1.002-1.035); SQUAMOUS EPITHELIAL CELL UR AU 0 /HPF (0-6); UROBILINOGEN, URINE AUTO 0.2 mg/dL (0.0-2.0); WBC, URINE AUTO 1 /HPF (0-3)
[2022-04-03 11:29] LABS: ALBUMIN 3.5 GM/DL (3.2-5.2); BILIRUBIN,DIRECT 0.1 MG/DL (0.0-0.2); BILIRUBIN,TOTAL 0.3 MG/DL (0.2-1.0); CALCIUM LEVEL 9.2 MG/DL (8.8-10.2); CREATININE FOR GFR 2.26 MG/DL (0.70-1.30); GLOMERULAR FILTRATION RATE 31.2 (>49); MAGNESIUM LEVEL 1.7 MG/DL (1.8-2.4); PHOSPHORUS LEVEL 3.6 MG/DL (2.5-4.9); POTASSIUM SERUM 4.6 MEQ/L (3.5-5.1); TOTAL PROTEIN 6.7 GM/DL (6.4-8.2)
[2022-04-03 11:31] LABS: ATYPICAL LYMPH 3 % (0-5); BASOPHILS 2 % (0-1); EOSINOPHILS 1 % (0-3); LYMPHOCYTES 34 % (16-44); MONOCYTES 11 % (0-5); NEUTROPHILS 49 % (28-66); PLATELET ESTIMATE NORMAL (NORMAL)
[2022-04-03 11:36] LABS: CREATININE,RANDOM URINE 90.3 MG/DL; TOTAL PROTEIN,RANDOM URINE 28.4 MG/DL (0.0-12.0)
== END ==
LOC: M PLALAB 07:39
PROVIDERS: ATTEND Internal Medicine Nephrology
DX: Z94.0 Kidney transplant status (principal); N18.5 Chronic kidney disease, stage 5; D84.9 Immunodeficiency, unspecified; Z79.899 Other long term (current) drug therapy

== ENCOUNTER → 2022-04-12 | Outpatient (CLI) | payer MEDICARE, MEDICAID | LOC: M RAD 08:21 | PROVIDERS: ATTEND Student in an Organized Health Care Education/Training Program | DX: Z12.2 Encounter for screening for malignant neoplasm of respiratory organs (principal); J43.9 Emphysema, unspecified; F17.210 Nicotine dependence, cigarettes, uncomplicated ==

== ENCOUNTER → 2022-04-17 | Outpatient (CLI) | payer MEDICARE, MEDICAID, OTHER ==
[2022-04-17 11:20] LABS: HEMATOCRIT 43.3 % (42.0-52.0); HEMOGLOBIN 14.4 g/dl (13.5-17.5); MEAN CORPUSCULAR HEMOGLOBIN 33.9 pg (27.0-33.0); MEAN CORPUSCULAR HGB CONC 33.3 g/dl (32.0-36.5); MEAN CORPUSCULAR VOLUME 101.9 fl (80.0-96.0); PLATELET COUNT, AUTOMATED 226 10^3/uL (150-450); RED BLOOD COUNT 4.25 10^6/uL (4.30-6.10); WHITE BLOOD COUNT 5.4 10^3/uL (4.0-10.0)
[2022-04-17 11:23] LABS: APPEARANCE, URINE CLEAR (CLEAR); BACTERIA, URINE AUTO NEGATIVE (NEGATIVE); BILIRUBIN, URINE AUTO NEGATIVE (NEGATIVE); BLOOD, URINE BLOOD NEGATIVE (NEGATIVE); COLOR, URINE STRAW (YELLOW); GLUCOSE, URINE (UA) AUTO NEGATIVE (NEGATIVE); KETONE, URINE AUTO NEGATIVE (NEGATIVE); LEUKOCYTE ESTERASE, URINE AUTO NEGATIVE (NEGATIVE); NITRITE, URINE AUTO NEGATIVE (NEGATIVE); PROTEIN, URINE AUTO NEGATIVE (NEGATIVE); RBC, URINE AUTO 0 /HPF (0-3); SPECIFIC GRAVITY URINE AUTO 1.006 (1.002-1.035); SQUAMOUS EPITHELIAL CELL UR AU 1 /HPF (0-6); UROBILINOGEN, URINE AUTO 0.2 mg/dL (0.0-2.0); WBC, URINE AUTO 0 /HPF (0-3)
[2022-04-17 11:49] LABS: ALBUMIN 3.3 GM/DL (3.2-5.2); ALT/SGPT 23 U/L (12-78); BILIRUBIN,DIRECT < 0.1 MG/DL (0.0-0.2); BILIRUBIN,TOTAL 0.2 MG/DL (0.2-1.0); BLOOD UREA NITROGEN 35 MG/DL (7-18); CARBON DIOXIDE LEVEL 28 MEQ/L (21-32); CHLORIDE LEVEL 109 MEQ/L (98-107); CREATININE FOR GFR 2.06 MG/DL (0.70-1.30); GLOMERULAR FILTRATION RATE 34.7 (>49); GLUCOSE, FASTING 75 MG/DL (70-100); PHOSPHORUS LEVEL 3.2 MG/DL (2.5-4.9); POTASSIUM SERUM 4.3 MEQ/L (3.5-5.1); SODIUM LEVEL 141 MEQ/L (136-145); TOTAL PROTEIN 6.7 GM/DL (6.4-8.2)
[2022-04-17 11:51] LABS: CREATININE,RANDOM URINE 52.8 MG/DL; TOTAL PROTEIN,RANDOM URINE 20.4 MG/DL (0.0-12.0)
[2022-04-17 12:27] LABS: ANISOCYTOSIS 1+; BASOPHILS 1 % (0-1); EOSINOPHILS 2 % (0-3); LYMPHOCYTES 27 % (16-44); METAMYELOCYTES 3 % (0-0); MONOCYTES 6 % (0-5); MYELOCYTES 4 % (0-0); NEUTROPHILS 48 % (28-66); OVALOCYTES 1+; POIKILOCYTOSIS 1+
[2022-04-17 12:28] LABS: PLATELET ESTIMATE NORMAL (NORMAL)
== END ==
LOC: M PLALAB 07:29
PROVIDERS: ATTEND Internal Medicine Nephrology
DX: Z94.0 Kidney transplant status (principal); N18.5 Chronic kidney disease, stage 5; D84.9 Immunodeficiency, unspecified; Z79.899 Other long term (current) drug therapy

== ENCOUNTER → 2022-05-16 | Outpatient (CLI) | payer MEDICARE, MEDICAID ==
[2022-05-16 11:15] LABS: BASO # 0.1 10^3/uL (0.0-0.2); BASO % 0.9 % (0.0-1.0); EOS # 0.1 10^3/uL (0.0-0.5); EOS % 1.2 % (0.0-3.0); HEMATOCRIT 41.9 % (42.0-52.0); LYMPH # 1.9 10^3/uL (1.5-5.0); LYMPH % 28.7 % (24.0-44.0); MEAN CORPUSCULAR HEMOGLOBIN 33.8 pg (27.0-33.0); MEAN CORPUSCULAR HGB CONC 33.4 g/dl (32.0-36.5); MEAN CORPUSCULAR VOLUME 101.2 fl (80.0-96.0); MONO # 0.3 10^3/uL (0.0-0.8); MONO % 4.7 % (2.0-8.0); NEUTROPHILS # 4.1 10^3/uL (1.5-8.5); NEUTROPHILS % 62.2 % (36.0-66.0); PLATELET COUNT, AUTOMATED 224 10^3/uL (150-450); RED BLOOD COUNT 4.14 10^6/uL (4.30-6.10); WHITE BLOOD COUNT 6.6 10^3/uL (4.0-10.0)
[2022-05-16 12:12] LABS: ALBUMIN 3.5 GM/DL (3.2-5.2); CALCIUM LEVEL 9.1 MG/DL (8.8-10.2); CREATININE FOR GFR 2.3 MG/DL (0.70-1.30); GLOMERULAR FILTRATION RATE 30.5 (>49); MAGNESIUM LEVEL 1.8 MG/DL (1.8-2.4); PHOSPHORUS LEVEL 3.7 MG/DL (2.5-4.9); POTASSIUM SERUM 4.3 MEQ/L (3.5-5.1)
[2022-05-16 12:27] LABS: MAU/CREAT RATIO 72.4 MCG/MG (0.0-30.0); TOTAL PROTEIN,RANDOM URINE 43.6 MG/DL (0.0-12.0)
[2022-05-18 15:08] LABS: CMV QUANT DNA PCR (PLASMA) Positive < 200 IU/mL (Negative)
== END ==
LOC: M PLALAB 07:16
PROVIDERS: ATTEND Internal Medicine Nephrology
DX: Z94.0 Kidney transplant status (principal); N18.6 End stage renal disease; D84.9 Immunodeficiency, unspecified; Z79.899 Other long term (current) drug therapy

== ENCOUNTER 2022-05-25 11:50 | Outpatient (CLI) | payer MEDICARE, MEDICAID ==
[~2022-05-25] VITALS: Ht 167.6 cm; Wt 65.0 kg
[2022-05-25 12:14] VITALS: BP 165/84
[2022-05-25] MEDS ORDERED: NS IV ONE (12:30)
[2022-05-25] MEDS ORDERED: BELATACEPT IV ONE (12:30)
[2022-05-25 12:56] VITALS: BP 171/86
== END 2022-05-25 13:00 | disposition home or self-care (01) ==
LOC: M INFU 11:50
PROVIDERS: ATTEND Internal Medicine Nephrology
DX: Z94.0 Kidney transplant status (principal)
CPT/HCPCS: 96365; J0485

== ENCOUNTER → 2022-05-29 | Outpatient (CLI) | payer MEDICARE, MEDICAID ==
[2022-05-29 10:35] LABS: APPEARANCE, URINE MANUAL CLEAR (CLEAR); BILIRUBIN, URINE MANUAL NEGATIVE (NEGATIVE); BLOOD URINE MANUAL NEGATIVE (NEGATIVE); COLOR, URINE MANUAL YELLOW (YELLOW); GLUCOSE, URINE (UA) MANUAL NEGATIVE (NEGATIVE); KETONE, URINE MANUAL NEGATIVE (NEGATIVE); LEUKOCYTE ESTERASE, URINE MAN NEGATIVE (NEGATIVE); NITRITE, URINE MANUAL NEGATIVE (NEGATIVE); PROTEIN, URINE MANUAL NEGATIVE (NEGATIVE); UROBILINOGEN, URINE MANUAL NORMAL (NORMAL)
[2022-05-29 10:41] LABS: BASO # 0.1 10^3/uL (0.0-0.2); BASO % 0.8 % (0.0-1.0); EOS % 0.6 % (0.0-3.0); HEMATOCRIT 40.1 % (42.0-52.0); HEMOGLOBIN 13.1 g/dl (13.5-17.5); LYMPH # 1.8 10^3/uL (1.5-5.0); LYMPH % 25.7 % (24.0-44.0); MEAN CORPUSCULAR HGB CONC 32.7 g/dl (32.0-36.5); MEAN CORPUSCULAR VOLUME 104.2 fl (80.0-96.0); MONO # 0.2 10^3/uL (0.0-0.8); MONO % 3.1 % (2.0-8.0); NEUTROPHILS # 4.9 10^3/uL (1.5-8.5); PLATELET COUNT, AUTOMATED 216 10^3/uL (150-450); RED BLOOD COUNT 3.85 10^6/uL (4.30-6.10); WHITE BLOOD COUNT 7.1 10^3/uL (4.0-10.0)
[2022-05-29 12:23] LABS: ALBUMIN 3.5 GM/DL (3.2-5.2); CALCIUM LEVEL 9.1 MG/DL (8.8-10.2); CREATININE FOR GFR 2.25 MG/DL (0.70-1.30); GLOMERULAR FILTRATION RATE 31.3 (>49); PHOSPHORUS LEVEL 3.1 MG/DL (2.5-4.9); POTASSIUM SERUM 3.8 MEQ/L (3.5-5.1)
[2022-05-29 12:46] LABS: CREATININE,RANDOM URINE 76.7 MG/DL; TOTAL PROTEIN,RANDOM URINE 25.8 MG/DL (0.0-12.0)
[2022-05-31 15:08] LABS: CMV QUANT DNA PCR (PLASMA) Positive < 200 IU/mL (Negative)
== END ==
LOC: M PLALAB 07:13
PROVIDERS: ATTEND Internal Medicine Nephrology
DX: N18.6 End stage renal disease (principal); D84.9 Immunodeficiency, unspecified; Z94.0 Kidney transplant status; Z79.899 Other long term (current) drug therapy

== ENCOUNTER → 2022-06-12 | Outpatient (CLI) | payer MEDICARE, MEDICAID ==
[2022-06-12 10:28] LABS: BASO # 0.1 10^3/uL (0.0-0.2); BASO % 1.3 % (0.0-1.0); EOS # 0.1 10^3/uL (0.0-0.5); EOS % 0.9 % (0.0-3.0); HEMATOCRIT 43.2 % (42.0-52.0); HEMOGLOBIN 14.1 g/dl (13.5-17.5); LYMPH # 1.5 10^3/uL (1.5-5.0); LYMPH % 23.1 % (24.0-44.0); MEAN CORPUSCULAR HEMOGLOBIN 34.3 pg (27.0-33.0); MEAN CORPUSCULAR HGB CONC 32.6 g/dl (32.0-36.5); MEAN CORPUSCULAR VOLUME 105.1 fl (80.0-96.0); MONO # 0.6 10^3/uL (0.0-0.8); MONO % 8.5 % (2.0-8.0); NEUTROPHILS # 4.3 10^3/uL (1.5-8.5); PLATELET COUNT, AUTOMATED 236 10^3/uL (150-450); RED BLOOD COUNT 4.11 10^6/uL (4.30-6.10); WHITE BLOOD COUNT 6.7 10^3/uL (4.0-10.0)
[2022-06-12 11:19] LABS: ALBUMIN 3.5 GM/DL (3.2-5.2); CALCIUM LEVEL 9.2 MG/DL (8.8-10.2); CREATININE FOR GFR 2.26 MG/DL (0.70-1.30); GLOMERULAR FILTRATION RATE 31.2 (>49); PHOSPHORUS LEVEL 3.6 MG/DL (2.5-4.9); POTASSIUM SERUM 4.8 MEQ/L (3.5-5.1)
[2022-06-12 12:05] LABS: CREATININE, URINE 47.3 MG/DL; CREATININE,RANDOM URINE 47.3 MG/DL; MALB URINE SIEMENS 58.9 MG/L; MAU/CREAT RATIO 124.5 MCG/MG (0.0-30.0); TOTAL PROTEIN,RANDOM URINE 24.2 MG/DL (0.0-12.0)
[2022-06-13 20:07] LABS: log10 CMV QN DNA P1 2.393 (.)
== END ==
LOC: M PLALAB 08:47
PROVIDERS: ATTEND Internal Medicine Nephrology
DX: Z94.0 Kidney transplant status (principal)

== ENCOUNTER 2022-06-22 11:45 | Outpatient (CLI) | payer MEDICARE, MEDICAID ==
[~2022-06-22] VITALS: Ht 167.6 cm; Wt 65.0 kg
[2022-06-22 12:20] VITALS: BP 139/76
[2022-06-22] MEDS ORDERED: BELATACEPT IV ONE (12:30)
[2022-06-22] MEDS ORDERED: NS IV ONE (12:30)
[2022-06-22 13:10] VITALS: BP 134/84
== END 2022-06-22 13:15 | disposition home or self-care (01) ==
LOC: M INFU 11:45
PROVIDERS: ATTEND Internal Medicine Nephrology
DX: Z94.0 Kidney transplant status (principal)
CPT/HCPCS: 96365; J0485

== ENCOUNTER → 2022-06-26 | Outpatient (CLI) | payer MEDICARE, MEDICAID ==
[2022-06-26 10:31] LABS: APPEARANCE, URINE MANUAL CLEAR (CLEAR)
[2022-06-26 10:32] LABS: BILIRUBIN, URINE MANUAL NEGATIVE (NEGATIVE); BLOOD URINE MANUAL NEGATIVE (NEGATIVE); COLOR, URINE MANUAL LT YELLOW (YELLOW); GLUCOSE, URINE (UA) MANUAL NEGATIVE (NEGATIVE); KETONE, URINE MANUAL NEGATIVE (NEGATIVE); LEUKOCYTE ESTERASE, URINE MAN NEGATIVE (NEGATIVE); NITRITE, URINE MANUAL NEGATIVE (NEGATIVE); PROTEIN, URINE MANUAL NEGATIVE (NEGATIVE); UROBILINOGEN, URINE MANUAL NORMAL (NORMAL)
[2022-06-26 10:35] LABS: BASO # 0.1 10^3/uL (0.0-0.2); BASO % 1.2 % (0.0-1.0); EOS # 0.1 10^3/uL (0.0-0.5); EOS % 0.7 % (0.0-3.0); HEMATOCRIT 42.3 % (42.0-52.0); HEMOGLOBIN 13.7 g/dl (13.5-17.5); LYMPH # 1.7 10^3/uL (1.5-5.0); LYMPH % 21.5 % (24.0-44.0); MEAN CORPUSCULAR HEMOGLOBIN 34.1 pg (27.0-33.0); MEAN CORPUSCULAR HGB CONC 32.4 g/dl (32.0-36.5); MEAN CORPUSCULAR VOLUME 105.2 fl (80.0-96.0); MONO # 0.4 10^3/uL (0.0-0.8); MONO % 5.3 % (2.0-8.0); NEUTROPHILS # 5.4 10^3/uL (1.5-8.5); NEUTROPHILS % 70.4 % (36.0-66.0); PLATELET COUNT, AUTOMATED 234 10^3/uL (150-450); RED BLOOD COUNT 4.02 10^6/uL (4.30-6.10); WHITE BLOOD COUNT 7.7 10^3/uL (4.0-10.0)
[2022-06-26 11:18] LABS: CREATININE,RANDOM URINE 22.2 MG/DL; TOTAL PROTEIN,RANDOM URINE 11.2 MG/DL (0.0-12.0)
[2022-06-26 11:19] LABS: ALBUMIN 3.6 GM/DL (3.2-5.2); CALCIUM LEVEL 8.7 MG/DL (8.8-10.2); CREATININE FOR GFR 2.12 MG/DL (0.70-1.30); GLOMERULAR FILTRATION RATE 33.5 (>49); MAGNESIUM LEVEL 2.2 MG/DL (1.8-2.4); PHOSPHORUS LEVEL 3.2 MG/DL (2.5-4.9); POTASSIUM SERUM 4.7 MEQ/L (3.5-5.1)
== END ==
LOC: M PLALAB 07:07
PROVIDERS: ATTEND Internal Medicine Nephrology
DX: D84.9 Immunodeficiency, unspecified (principal); Z94.0 Kidney transplant status; Z79.899 Other long term (current) drug therapy

== ENCOUNTER → 2022-07-07 | Outpatient (CLI) | payer MEDICARE, MEDICAID ==
[2022-07-07 10:13] LABS: HEMATOCRIT 41.5 % (42.0-52.0); HEMOGLOBIN 13.7 g/dl (13.5-17.5); MEAN CORPUSCULAR HEMOGLOBIN 34.6 pg (27.0-33.0); MEAN CORPUSCULAR VOLUME 104.8 fl (80.0-96.0); PLATELET COUNT, AUTOMATED 191 10^3/uL (150-450); RED BLOOD COUNT 3.96 10^6/uL (4.30-6.10); WHITE BLOOD COUNT 12.7 10^3/uL (4.0-10.0)
[2022-07-07 11:07] LABS: ALBUMIN 3.7 GM/DL (3.2-5.2); BILIRUBIN,TOTAL 0.6 MG/DL (0.2-1.0); CALCIUM LEVEL 9.2 MG/DL (8.8-10.2); CHOLESTEROL RISK RATIO 1.981 (<5); CREATININE FOR GFR 2.18 MG/DL (0.70-1.30); GLOMERULAR FILTRATION RATE 32.5 (>49); POTASSIUM SERUM 4.8 MEQ/L (3.5-5.1); THYROID STIMULATING HORMONE 1.4 uIU/ML (0.358-3.740); TOTAL PROTEIN 6.8 GM/DL (6.4-8.2)
== END ==
LOC: M PLALAB 08:40
PROVIDERS: ATTEND Student in an Organized Health Care Education/Training Program
DX: I50.22 Chronic systolic (congestive) heart failure (principal); I11.0 Hypertensive heart disease with heart failure; Z13.29 Encounter for screening for other suspected endocrine disorder; Z94.0 Kidney transplant status; Z13.1 Encounter for screening for diabetes mellitus; Z79.899 Other long term (current) drug therapy

== ENCOUNTER → 2022-07-10 | Outpatient (CLI) | payer MEDICARE, MEDICAID ==
[2022-07-10 10:41] LABS: APPEARANCE, URINE MANUAL CLEAR (CLEAR); COLOR, URINE MANUAL YELLOW (YELLOW)
[2022-07-10 10:42] LABS: BILIRUBIN, URINE MANUAL NEGATIVE (NEGATIVE); BLOOD URINE MANUAL NEGATIVE (NEGATIVE); GLUCOSE, URINE (UA) MANUAL NEGATIVE (NEGATIVE); KETONE, URINE MANUAL NEGATIVE (NEGATIVE); LEUKOCYTE ESTERASE, URINE MAN NEGATIVE (NEGATIVE); NITRITE, URINE MANUAL NEGATIVE (NEGATIVE); PROTEIN, URINE MANUAL NEGATIVE (NEGATIVE); UROBILINOGEN, URINE MANUAL NORMAL (NORMAL)
[2022-07-10 10:47] LABS: BASO # 0.1 10^3/uL (0.0-0.2); BASO % 0.8 % (0.0-1.0); EOS % 0.5 % (0.0-3.0); HEMATOCRIT 43.1 % (42.0-52.0); HEMOGLOBIN 13.9 g/dl (13.5-17.5); LYMPH # 1.8 10^3/uL (1.5-5.0); LYMPH % 23.3 % (24.0-44.0); MEAN CORPUSCULAR HEMOGLOBIN 34.2 pg (27.0-33.0); MEAN CORPUSCULAR HGB CONC 32.3 g/dl (32.0-36.5); MEAN CORPUSCULAR VOLUME 106.2 fl (80.0-96.0); MONO # 0.2 10^3/uL (0.0-0.8); MONO % 1.9 % (2.0-8.0); NEUTROPHILS # 5.7 10^3/uL (1.5-8.5); PLATELET COUNT, AUTOMATED 197 10^3/uL (150-450); RED BLOOD COUNT 4.06 10^6/uL (4.30-6.10); WHITE BLOOD COUNT 7.8 10^3/uL (4.0-10.0)
[2022-07-10 11:27] LABS: ALBUMIN 3.7 GM/DL (3.2-5.2); CALCIUM LEVEL 9.2 MG/DL (8.8-10.2); CREATININE FOR GFR 2.33 MG/DL (0.70-1.30); GLOMERULAR FILTRATION RATE 30.1 (>49); MAGNESIUM LEVEL 2.2 MG/DL (1.8-2.4); PHOSPHORUS LEVEL 3.8 MG/DL (2.5-4.9); POTASSIUM SERUM 4.5 MEQ/L (3.5-5.1); TOTAL PROTEIN,RANDOM URINE 36.4 MG/DL (0.0-12.0)
[2022-07-11 18:07] LABS: CMV QUANT DNA PCR (PLASMA) Positive < 200 IU/mL (Negative)
== END ==
LOC: M PLALAB 07:15
PROVIDERS: ATTEND Internal Medicine Nephrology
DX: N18.6 End stage renal disease (principal); D84.9 Immunodeficiency, unspecified; Z94.0 Kidney transplant status; Z79.899 Other long term (current) drug therapy

== ENCOUNTER 2022-07-20 12:15 | Outpatient (CLI) | payer MEDICARE, MEDICAID ==
[~2022-07-20] VITALS: Ht 167.6 cm; Wt 65.0 kg
[2022-07-20 12:21] VITALS: BP 166/88
[2022-07-20] MEDS ORDERED: NS IV ONE (12:30)
[2022-07-20] MEDS ORDERED: BELATACEPT IV ONE (12:30)
[2022-07-20 13:18] VITALS: BP 160/88
== END 2022-07-20 13:15 | disposition home or self-care (01) ==
LOC: M INFU 12:15
PROVIDERS: ATTEND Internal Medicine Nephrology
DX: Z94.0 Kidney transplant status (principal); Z91.048 Other nonmedicinal substance allergy status
CPT/HCPCS: 96365; J0485

== ENCOUNTER → 2022-07-24 | Outpatient (CLI) | payer MEDICARE, MEDICAID ==
[2022-07-24 12:47] LABS: BASO # 0.1 10^3/uL (0.0-0.2); EOS % 0.3 % (0.0-3.0); HEMATOCRIT 43.5 % (42.0-52.0); HEMOGLOBIN 13.9 g/dl (13.5-17.5); LYMPH # 1.5 10^3/uL (1.5-5.0); LYMPH % 22.1 % (24.0-44.0); MEAN CORPUSCULAR HEMOGLOBIN 34.3 pg (27.0-33.0); MEAN CORPUSCULAR VOLUME 107.4 fl (80.0-96.0); MONO # 0.2 10^3/uL (0.0-0.8); MONO % 2.8 % (2.0-8.0); NEUTROPHILS % 73.2 % (36.0-66.0); PLATELET COUNT, AUTOMATED 304 10^3/uL (150-450); RED BLOOD COUNT 4.05 10^6/uL (4.30-6.10); WHITE BLOOD COUNT 6.8 10^3/uL (4.0-10.0)
[2022-07-24 14:58] LABS: ALBUMIN 3.5 GM/DL (3.2-5.2); CREATININE FOR GFR 2.21 MG/DL (0.70-1.30); POTASSIUM SERUM 4.1 MEQ/L (3.5-5.1)
[2022-07-24 15:20] LABS: MAU/CREAT RATIO 95.6 MCG/MG (0.0-30.0); TOTAL PROTEIN,RANDOM URINE 52.7 MG/DL (0.0-12.0)
[2022-07-26 00:08] LABS: CMV QUANT DNA PCR (PLASMA) Positive < 200 IU/mL (Negative)
== END ==
LOC: M PLALAB 07:03
PROVIDERS: ATTEND Internal Medicine Nephrology
DX: N18.5 Chronic kidney disease, stage 5 (principal); D84.9 Immunodeficiency, unspecified; Z94.0 Kidney transplant status; Z79.899 Other long term (current) drug therapy

== ENCOUNTER → 2022-08-07 | Outpatient (CLI) | payer MEDICARE, MEDICAID ==
[2022-08-07 15:47] LABS: BASO # 0.1 10^3/uL (0.0-0.2); BASO % 0.9 % (0.0-1.0); HEMATOCRIT 43.7 % (42.0-52.0); HEMOGLOBIN 14.2 g/dl (13.5-17.5); LYMPH # 1.9 10^3/uL (1.5-5.0); LYMPH % 21.9 % (24.0-44.0); MEAN CORPUSCULAR HEMOGLOBIN 34.5 pg (27.0-33.0); MEAN CORPUSCULAR HGB CONC 32.5 g/dl (32.0-36.5); MEAN CORPUSCULAR VOLUME 106.1 fl (80.0-96.0); MONO # 0.3 10^3/uL (0.0-0.8); MONO % 3.1 % (2.0-8.0); NEUTROPHILS # 6.3 10^3/uL (1.5-8.5); NEUTROPHILS % 73.4 % (36.0-66.0); PLATELET COUNT, AUTOMATED 238 10^3/uL (150-450); RED BLOOD COUNT 4.12 10^6/uL (4.30-6.10); WHITE BLOOD COUNT 8.5 10^3/uL (4.0-10.0)
[2022-08-07 15:58] LABS: CREATININE,RANDOM URINE 60.2 MG/DL; TOTAL PROTEIN,RANDOM URINE 23.8 MG/DL (0.0-14.0)
[2022-08-07 15:59] LABS: APPEARANCE, URINE MANUAL CLEAR (CLEAR); BILIRUBIN, URINE MANUAL NEGATIVE (NEGATIVE); BLOOD URINE MANUAL NEGATIVE (NEGATIVE); COLOR, URINE MANUAL YELLOW (YELLOW); GLUCOSE, URINE (UA) MANUAL NEGATIVE (NEGATIVE); KETONE, URINE MANUAL NEGATIVE (NEGATIVE); LEUKOCYTE ESTERASE, URINE MAN NEGATIVE (NEGATIVE); NITRITE, URINE MANUAL NEGATIVE (NEGATIVE); PROTEIN, URINE MANUAL NEGATIVE (NEGATIVE); UROBILINOGEN, URINE MANUAL NORMAL (NORMAL)
[2022-08-07 16:25] LABS: ALBUMIN 3.7 G/DL (3.2-5.2); CALCIUM LEVEL 8.6 MG/DL (8.3-10.6); CREATININE FOR GFR 1.89 MG/DL (0.70-1.30); GLOMERULAR FILTRATION RATE 38.3 (>49); MAGNESIUM LEVEL 1.7 MG/DL (1.8-2.4); PHOSPHORUS LEVEL 3.8 MG/DL (2.4-5.1); POTASSIUM SERUM 4.7 MMOL/L (3.5-5.1)
[2022-08-09 19:08] LABS: CMV QUANT DNA PCR (PLASMA) 459 IU/mL (Negative); log10 CMV QN DNA P1 2.662 (.)
== END ==
LOC: M PLALAB 14:20
PROVIDERS: ATTEND Internal Medicine Nephrology
DX: Z94.0 Kidney transplant status (principal); N18.6 End stage renal disease; D84.9 Immunodeficiency, unspecified; Z79.899 Other long term (current) drug therapy

== ENCOUNTER 2022-08-17 12:05 | Outpatient (CLI) | payer MEDICARE, MEDICAID ==
[2022-08-17 12:05] VITALS: BP 133/79
[2022-08-17] MEDS ORDERED: BELATACEPT IV ONE (12:30)
[2022-08-17] MEDS ORDERED: NS IV ONE (12:30)
[2022-08-17 14:00] VITALS: BP 122/68
== END 2022-08-17 14:00 | disposition home or self-care (01) ==
LOC: M INFU 12:05
PROVIDERS: ATTEND Internal Medicine Nephrology
DX: Z94.0 Kidney transplant status (principal)
CPT/HCPCS: 96365; J0485

== ENCOUNTER → 2022-08-21 | Outpatient (CLI) | payer MEDICARE, MEDICAID ==
[2022-08-21 10:42] LABS: BASO # 0.1 10^3/uL (0.0-0.2); BASO % 0.9 % (0.0-1.0); EOS # 0.1 10^3/uL (0.0-0.5); HEMATOCRIT 45.5 % (42.0-52.0); HEMOGLOBIN 14.8 g/dl (13.5-17.5); LYMPH % 21.9 % (24.0-44.0); MEAN CORPUSCULAR HEMOGLOBIN 33.8 pg (27.0-33.0); MEAN CORPUSCULAR HGB CONC 32.5 g/dl (32.0-36.5); MEAN CORPUSCULAR VOLUME 103.9 fl (80.0-96.0); MONO % 10.9 % (2.0-8.0); NEUTROPHILS # 5.7 10^3/uL (1.5-8.5); NEUTROPHILS % 64.4 % (36.0-66.0); PLATELET COUNT, AUTOMATED 218 10^3/uL (150-450); RED BLOOD COUNT 4.38 10^6/uL (4.30-6.10); WHITE BLOOD COUNT 8.9 10^3/uL (4.0-10.0)
[2022-08-21 11:00] LABS: APPEARANCE, URINE MANUAL CLEAR (CLEAR); COLOR, URINE MANUAL YELLOW (YELLOW)
[2022-08-21 11:01] LABS: PROTEIN, URINE MANUAL 1+ mg/dL (NEGATIVE)
[2022-08-21 11:07] LABS: BILIRUBIN, URINE MANUAL NEGATIVE (NEGATIVE); GLUCOSE, URINE (UA) MANUAL NEGATIVE (NEGATIVE); KETONE, URINE MANUAL NEGATIVE (NEGATIVE); NITRITE, URINE MANUAL NEGATIVE (NEGATIVE); UROBILINOGEN, URINE MANUAL NORMAL (NORMAL)
[2022-08-21 11:08] LABS: BLOOD URINE MANUAL TRACE (NEGATIVE); LEUKOCYTE ESTERASE, URINE MAN TRACE (NEGATIVE)
[2022-08-21 11:09] LABS: BACTERIA, URINE SMALL AMOUNT; HYALINE CAST, URINE NONE SEEN /lpf (0-1); SQUAMOUS EPITHELIAL CELL URINE SMALL AMOUNT /hpf (SMALL AMT)
[2022-08-21 11:11] LABS: TOTAL PROTEIN,RANDOM URINE 33.5 MG/DL (0.0-14.0)
[2022-08-21 11:15] LABS: MAGNESIUM LEVEL 1.9 MG/DL (1.8-2.4)
[2022-08-21 11:17] LABS: ALBUMIN 3.7 G/DL (3.2-5.2); CALCIUM LEVEL 9.3 MG/DL (8.3-10.6); CREATININE FOR GFR 2.06 MG/DL (0.70-1.30); GLOMERULAR FILTRATION RATE 34.7 (>49); PHOSPHORUS LEVEL 4.2 MG/DL (2.4-5.1); POTASSIUM SERUM 4.6 MMOL/L (3.5-5.1)
[2022-08-22 17:08] LABS: CMV QUANT DNA PCR (PLASMA) Positive < 200 IU/mL (Negative)
== END ==
LOC: M PLALAB 07:09
PROVIDERS: ATTEND Internal Medicine Nephrology
DX: Z94.0 Kidney transplant status (principal); N18.6 End stage renal disease; D84.9 Immunodeficiency, unspecified; Z79.899 Other long term (current) drug therapy

== ENCOUNTER → 2022-09-04 | Outpatient (CLI) | payer MEDICARE, MEDICAID ==
[2022-09-04 15:29] LABS: APPEARANCE, URINE MANUAL CLEAR (CLEAR); BILIRUBIN, URINE MANUAL NEGATIVE (NEGATIVE); BLOOD URINE MANUAL NEGATIVE (NEGATIVE); COLOR, URINE MANUAL YELLOW (YELLOW); GLUCOSE, URINE (UA) MANUAL NEGATIVE (NEGATIVE); KETONE, URINE MANUAL NEGATIVE (NEGATIVE); LEUKOCYTE ESTERASE, URINE MAN NEGATIVE (NEGATIVE); NITRITE, URINE MANUAL NEGATIVE (NEGATIVE); PROTEIN, URINE MANUAL NEGATIVE (NEGATIVE); UROBILINOGEN, URINE MANUAL NORMAL (NORMAL)
[2022-09-04 15:43] LABS: BASO % 0.5 % (0.0-1.0); EOS % 0.3 % (0.0-3.0); HEMATOCRIT 42.9 % (42.0-52.0); HEMOGLOBIN 14.3 g/dl (13.5-17.5); LYMPH # 1.8 10^3/uL (1.5-5.0); LYMPH % 20.1 % (24.0-44.0); MEAN CORPUSCULAR HEMOGLOBIN 34.9 pg (27.0-33.0); MEAN CORPUSCULAR HGB CONC 33.3 g/dl (32.0-36.5); MEAN CORPUSCULAR VOLUME 104.6 fl (80.0-96.0); MONO # 0.1 10^3/uL (0.0-0.8); MONO % 1.5 % (2.0-8.0); NEUTROPHILS # 6.8 10^3/uL (1.5-8.5); NEUTROPHILS % 77.4 % (36.0-66.0); PLATELET COUNT, AUTOMATED 193 10^3/uL (150-450); WHITE BLOOD COUNT 8.7 10^3/uL (4.0-10.0)
[2022-09-04 15:53] LABS: TOTAL PROTEIN,RANDOM URINE 7.4 MG/DL (0.0-14.0)
[2022-09-04 15:58] LABS: CREATININE,RANDOM URINE 25.7 MG/DL
[2022-09-04 15:58] LABS: MAGNESIUM LEVEL 1.9 MG/DL (1.8-2.4)
[2022-09-04 15:59] LABS: ALBUMIN 3.4 G/DL (3.2-5.2); CALCIUM LEVEL 8.4 MG/DL (8.3-10.6); CREATININE FOR GFR 1.9 MG/DL (0.70-1.30); GLOMERULAR FILTRATION RATE 37.9 (>49); POTASSIUM SERUM 4.9 MMOL/L (3.5-5.1)
== END ==
LOC: M PLALAB 12:28
PROVIDERS: ATTEND Internal Medicine Nephrology
DX: N18.6 End stage renal disease (principal); D84.9 Immunodeficiency, unspecified; Z94.0 Kidney transplant status; Z79.899 Other long term (current) drug therapy

== ENCOUNTER 2022-09-14 12:05 | Outpatient (CLI) | payer MEDICARE, MEDICAID ==
[~2022-09-14] VITALS: Ht 167.6 cm; Wt 65.0 kg
[2022-09-14 12:11] VITALS: BP 117/66
[2022-09-14] MEDS ORDERED: NS IV ONE (12:30)
[2022-09-14] MEDS ORDERED: BELATACEPT IV ONE (12:30)
[2022-09-14 13:15] VITALS: BP 116/71
== END 2022-09-14 13:15 ==
LOC: M INFU 12:05
PROVIDERS: ATTEND Internal Medicine Nephrology
DX: Z94.0 Kidney transplant status (principal); Z91.048 Other nonmedicinal substance allergy status
CPT/HCPCS: 96365; J0485

== ENCOUNTER → 2022-09-19 | Outpatient (CLI) | payer MEDICARE, MEDICAID ==
[2022-09-19 10:21] LABS: BASO # 0.1 10^3/uL (0.0-0.2); EOS # 0.1 10^3/uL (0.0-0.5); EOS % 0.7 % (0.0-3.0); HEMATOCRIT 42.8 % (42.0-52.0); HEMOGLOBIN 14.1 g/dl (13.5-17.5); LYMPH % 27.6 % (24.0-44.0); MEAN CORPUSCULAR HEMOGLOBIN 34.9 pg (27.0-33.0); MEAN CORPUSCULAR HGB CONC 32.9 g/dl (32.0-36.5); MEAN CORPUSCULAR VOLUME 105.9 fl (80.0-96.0); MONO # 0.3 10^3/uL (0.0-0.8); MONO % 4.3 % (2.0-8.0); NEUTROPHILS # 4.7 10^3/uL (1.5-8.5); NEUTROPHILS % 65.8 % (36.0-66.0); PLATELET COUNT, AUTOMATED 275 10^3/uL (150-450); RED BLOOD COUNT 4.04 10^6/uL (4.30-6.10); WHITE BLOOD COUNT 7.2 10^3/uL (4.0-10.0)
[2022-09-19 10:30] LABS: GLUCOSE, URINE (UA) MANUAL NEGATIVE (NEGATIVE); PROTEIN, URINE MANUAL TRACE mg/dL (NEGATIVE); SPECIFIC GRAVITY,URINE MANUAL 1.015 (1.002-1.035)
[2022-09-19 10:31] LABS: APPEARANCE, URINE MANUAL CLEAR (CLEAR); BILIRUBIN, URINE MANUAL NEGATIVE (NEGATIVE); BLOOD URINE MANUAL NEGATIVE (NEGATIVE); COLOR, URINE MANUAL YELLOW (YELLOW); KETONE, URINE MANUAL NEGATIVE (NEGATIVE); NITRITE, URINE MANUAL NEGATIVE (NEGATIVE); UROBILINOGEN, URINE MANUAL NORMAL (NORMAL)
[2022-09-19 10:32] LABS: LEUKOCYTE ESTERASE, URINE MAN NEGATIVE (NEGATIVE)
[2022-09-19 10:45] LABS: TOTAL PROTEIN,RANDOM URINE 42.6 MG/DL (0.0-14.0)
[2022-09-19 10:46] LABS: AMORPHOUS SEDIMENT, URINE SMALL AMOUNT (NEGATIVE); BACTERIA, URINE SMALL AMOUNT; HYALINE CAST, URINE NONE SEEN /lpf (0-1); RBC, URINE NONE SEEN /hpf (0-3); SQUAMOUS EPITHELIAL CELL URINE SMALL AMOUNT /hpf (SMALL AMT)
[2022-09-19 10:49] LABS: MAGNESIUM LEVEL 1.7 MG/DL (1.8-2.4)
[2022-09-19 10:50] LABS: ALBUMIN 3.6 G/DL (3.2-5.2); CALCIUM LEVEL 9.4 MG/DL (8.3-10.6); CREATININE FOR GFR 1.97 MG/DL (0.70-1.30); CREATININE,RANDOM URINE 127.1 MG/DL; GLOMERULAR FILTRATION RATE 36.4 (>49); PHOSPHORUS LEVEL 3.9 MG/DL (2.4-5.1); POTASSIUM SERUM 4.4 MMOL/L (3.5-5.1)
[2022-09-20 23:06] LABS: CMV QUANT DNA PCR (PLASMA) Positive < 200 IU/mL (Negative)
== END ==
LOC: M PLALAB 07:14
PROVIDERS: ATTEND Internal Medicine Nephrology
DX: D84.9 Immunodeficiency, unspecified (principal); Z94.0 Kidney transplant status; N18.6 End stage renal disease; Z79.899 Other long term (current) drug therapy

== ENCOUNTER → 2022-10-03 | Outpatient (CLI) | payer MEDICARE, MEDICAID ==
[2022-10-03 10:20] LABS: BASO # 0.1 10^3/uL (0.0-0.2); BASO % 0.7 % (0.0-1.0); EOS # 0.1 10^3/uL (0.0-0.5); EOS % 0.7 % (0.0-3.0); HEMATOCRIT 41.6 % (42.0-52.0); HEMOGLOBIN 13.4 g/dl (13.5-17.5); LYMPH % 28.7 % (24.0-44.0); MEAN CORPUSCULAR HEMOGLOBIN 33.8 pg (27.0-33.0); MEAN CORPUSCULAR HGB CONC 32.2 g/dl (32.0-36.5); MEAN CORPUSCULAR VOLUME 105.1 fl (80.0-96.0); MONO # 0.4 10^3/uL (0.0-0.8); MONO % 5.3 % (2.0-8.0); NEUTROPHILS # 4.5 10^3/uL (1.5-8.5); PLATELET COUNT, AUTOMATED 211 10^3/uL (150-450); RED BLOOD COUNT 3.96 10^6/uL (4.30-6.10)
[2022-10-03 10:20] LABS: APPEARANCE, URINE MANUAL CLEAR (CLEAR); COLOR, URINE MANUAL LT YELLOW (YELLOW)
[2022-10-03 10:23] LABS: SPECIFIC GRAVITY,URINE MANUAL 1.005 (1.002-1.035)
[2022-10-03 10:24] LABS: BILIRUBIN, URINE MANUAL NEGATIVE (NEGATIVE); GLUCOSE, URINE (UA) MANUAL NEGATIVE (NEGATIVE); KETONE, URINE MANUAL NEGATIVE (NEGATIVE); NITRITE, URINE MANUAL NEGATIVE (NEGATIVE); PROTEIN, URINE MANUAL TRACE mg/dL (NEGATIVE); UROBILINOGEN, URINE MANUAL NORMAL (NORMAL)
[2022-10-03 10:25] LABS: BLOOD URINE MANUAL TRACE (NEGATIVE); LEUKOCYTE ESTERASE, URINE MAN TRACE (NEGATIVE)
[2022-10-03 10:34] LABS: BACTERIA, URINE SMALL AMOUNT; HYALINE CAST, URINE NONE SEEN /lpf (0-1); RBC, URINE 0-1 /hpf (0-3); SQUAMOUS EPITHELIAL CELL URINE MOD AMOUNT /hpf (SMALL AMT)
[2022-10-03 10:40] LABS: TOTAL PROTEIN,RANDOM URINE 11.4 MG/DL (0.0-14.0)
[2022-10-03 10:43] LABS: MAGNESIUM LEVEL 1.8 MG/DL (1.8-2.4)
[2022-10-03 10:46] LABS: ALBUMIN 3.5 G/DL (3.2-5.2); CALCIUM LEVEL 8.7 MG/DL (8.3-10.6); CREATININE FOR GFR 2.11 MG/DL (0.70-1.30); GLOMERULAR FILTRATION RATE 33.6 (>49); PHOSPHORUS LEVEL 3.5 MG/DL (2.4-5.1); POTASSIUM SERUM 4.3 MMOL/L (3.5-5.1)
[2022-10-03 10:46] LABS: CREATININE,RANDOM URINE 35.5 MG/DL
[2022-10-04 20:08] LABS: CMV QUANT DNA PCR (PLASMA) Positive < 200 IU/mL (Negative)
== END ==
LOC: M PLALAB 07:13
PROVIDERS: ATTEND Internal Medicine Nephrology
DX: Z94.0 Kidney transplant status (principal); D84.9 Immunodeficiency, unspecified; N18.6 End stage renal disease

== ENCOUNTER 2022-10-12 12:30 | Outpatient (CLI) | payer MEDICARE, MEDICAID ==
[~2022-10-12] VITALS: Ht 167.6 cm; Wt 65.0 kg
[~2022-10-12 12:30] MED LIST changes: +BELATACEPT IV ONE; +NS IV ONE
[2022-10-12 12:48] VITALS: BP 120/75
== END 2022-10-12 13:30 | disposition home or self-care (01) ==
LOC: M INFU 12:30
PROVIDERS: ATTEND Internal Medicine Nephrology
DX: Z94.0 Kidney transplant status (principal)
CPT/HCPCS: 96365; J0485

== ENCOUNTER → 2022-10-16 | Outpatient (CLI) | payer MEDICARE, MEDICAID ==
[~2022-10-16] MED LIST changes: -BELATACEPT IV ONE; -NS IV ONE
[2022-10-16 17:31] LABS: APPEARANCE, URINE MANUAL CLEAR (CLEAR); BASO # 0.1 10^3/uL (0.0-0.2); BASO % 0.8 % (0.0-1.0); BILIRUBIN, URINE MANUAL NEGATIVE (NEGATIVE); COLOR, URINE MANUAL YELLOW (YELLOW); EOS % 0.2 % (0.0-3.0); GLUCOSE, URINE (UA) MANUAL NEGATIVE (NEGATIVE); HEMATOCRIT 44.2 % (42.0-52.0); HEMOGLOBIN 14.6 g/dl (13.5-17.5); KETONE, URINE MANUAL NEGATIVE (NEGATIVE); LEUKOCYTE ESTERASE, URINE MAN NEGATIVE (NEGATIVE); LYMPH # 1.5 10^3/uL (1.5-5.0); LYMPH % 15.9 % (24.0-44.0); MEAN CORPUSCULAR HEMOGLOBIN 34.7 pg (27.0-33.0); MONO # 0.5 10^3/uL (0.0-0.8); MONO % 5.4 % (2.0-8.0); NEUTROPHILS # 7.3 10^3/uL (1.5-8.5); NEUTROPHILS % 77.1 % (36.0-66.0); NITRITE, URINE MANUAL NEGATIVE (NEGATIVE); PLATELET COUNT, AUTOMATED 231 10^3/uL (150-450); PROTEIN, URINE MANUAL 1+ mg/dL (NEGATIVE); RED BLOOD COUNT 4.21 10^6/uL (4.30-6.10); SPECIFIC GRAVITY,URINE MANUAL 1.015 (1.002-1.035); UROBILINOGEN, URINE MANUAL NORMAL (NORMAL); WHITE BLOOD COUNT 9.4 10^3/uL (4.0-10.0)
[2022-10-16 17:32] LABS: BLOOD URINE MANUAL TRACE (NEGATIVE)
[2022-10-16 17:39] LABS: ALBUMIN 3.8 G/DL (3.2-5.2); CALCIUM LEVEL 9.5 MG/DL (8.3-10.6); CREATININE FOR GFR 2.13 MG/DL (0.70-1.30); GLOMERULAR FILTRATION RATE 33.3 (>49); MAGNESIUM LEVEL 1.9 MG/DL (1.8-2.4); PHOSPHORUS LEVEL 4.3 MG/DL (2.4-5.1); POTASSIUM SERUM 4.3 MMOL/L (3.5-5.1)
[2022-10-16 17:44] LABS: BACTERIA, URINE SMALL AMOUNT; HYALINE CAST, URINE NONE SEEN /lpf (0-1); SQUAMOUS EPITHELIAL CELL URINE SMALL AMOUNT /hpf (SMALL AMT)
[2022-10-16 17:59] LABS: TOTAL PROTEIN,RANDOM URINE 74.3 MG/DL (0.0-14.0)
[2022-10-16 18:04] LABS: CREATININE,RANDOM URINE 140.9 MG/DL
[2022-10-18 19:07] LABS: CMV QUANT DNA PCR (PLASMA) Positive < 200 IU/mL (Negative)
== END ==
LOC: M PLALAB 14:38
PROVIDERS: ATTEND Internal Medicine Nephrology
DX: Z94.0 Kidney transplant status (principal); D84.9 Immunodeficiency, unspecified; Z79.899 Other long term (current) drug therapy

== ENCOUNTER → 2022-11-07 | Outpatient (CLI) | payer MEDICARE, MEDICAID ==
[2022-11-07 11:02] LABS: APPEARANCE, URINE HAZY (CLEAR); BACTERIA, URINE AUTO NEGATIVE (NEGATIVE); BILIRUBIN, URINE AUTO NEGATIVE (NEGATIVE); BLOOD, URINE BLOOD NEGATIVE (NEGATIVE); COLOR, URINE YELLOW (YELLOW); GLUCOSE, URINE (UA) AUTO NEGATIVE (NEGATIVE); KETONE, URINE AUTO NEGATIVE (NEGATIVE); LEUKOCYTE ESTERASE, URINE AUTO NEGATIVE (NEGATIVE); NITRITE, URINE AUTO NEGATIVE (NEGATIVE); PROTEIN, URINE AUTO 1+ mg/dL (NEGATIVE); RBC, URINE AUTO 0 /HPF (0-3); SPECIFIC GRAVITY URINE AUTO 1.016 (1.002-1.035); SQUAMOUS EPITHELIAL CELL UR AU 2 /HPF (0-6); UROBILINOGEN, URINE AUTO 0.2 mg/dL (0.0-2.0); WBC, URINE AUTO 2 /HPF (0-3)
[2022-11-07 11:03] LABS: BASO # 0.1 10^3/uL (0.0-0.2); BASO % 0.9 % (0.0-1.0); EOS % 0.5 % (0.0-3.0); HEMATOCRIT 43.4 % (42.0-52.0); HEMOGLOBIN 14.2 g/dl (13.5-17.5); LYMPH # 1.5 10^3/uL (1.5-5.0); LYMPH % 20.4 % (24.0-44.0); MEAN CORPUSCULAR HEMOGLOBIN 34.3 pg (27.0-33.0); MEAN CORPUSCULAR HGB CONC 32.7 g/dl (32.0-36.5); MEAN CORPUSCULAR VOLUME 104.8 fl (80.0-96.0); MONO # 0.6 10^3/uL (0.0-0.8); MONO % 7.8 % (2.0-8.0); NEUTROPHILS # 5.3 10^3/uL (1.5-8.5); NEUTROPHILS % 69.7 % (36.0-66.0); PLATELET COUNT, AUTOMATED 210 10^3/uL (150-450); RED BLOOD COUNT 4.14 10^6/uL (4.30-6.10); WHITE BLOOD COUNT 7.6 10^3/uL (4.0-10.0)
[2022-11-07 11:14] LABS: TOTAL PROTEIN,RANDOM URINE 52.4 MG/DL (0.0-14.0)
[2022-11-07 11:19] LABS: ALBUMIN 3.5 G/DL (3.2-5.2); CALCIUM LEVEL 8.8 MG/DL (8.3-10.6); CREATININE FOR GFR 2.1 MG/DL (0.70-1.30); CREATININE,RANDOM URINE 181.6 MG/DL; GLOMERULAR FILTRATION RATE 33.8 (>49); MAGNESIUM LEVEL 1.8 MG/DL (1.8-2.4); POTASSIUM SERUM 4.4 MMOL/L (3.5-5.1)
== END ==
LOC: M PLALAB 07:07
PROVIDERS: ATTEND Internal Medicine Nephrology
DX: Z94.0 Kidney transplant status (principal); Z79.899 Other long term (current) drug therapy; N18.5 Chronic kidney disease, stage 5; D84.9 Immunodeficiency, unspecified

== ENCOUNTER 2022-11-09 13:00 | Outpatient (CLI) | payer MEDICARE, MEDICAID ==
[~2022-11-09] VITALS: Ht 167.6 cm; Wt 65.0 kg
[~2022-11-09 13:00] MED LIST changes: +BELATACEPT IV ONE; +NS IV ONE
[2022-11-09 13:28] VITALS: BP 147/78
[2022-11-09 14:30] VITALS: BP 131/71
== END 2022-11-09 14:35 | disposition home or self-care (01) ==
LOC: M INFU 13:00
PROVIDERS: ATTEND Internal Medicine Nephrology
DX: Z94.0 Kidney transplant status (principal)
CPT/HCPCS: 96365; J0485

== ENCOUNTER → 2022-11-21 | Outpatient (CLI) | payer MEDICARE, MEDICAID ==
[~2022-11-21] MED LIST changes: -BELATACEPT IV ONE; -NS IV ONE
[2022-11-21 10:19] LABS: BASO # 0.1 10^3/uL (0.0-0.2); BASO % 0.5 % (0.0-1.0); EOS # 0.1 10^3/uL (0.0-0.5); EOS % 0.5 % (0.0-3.0); HEMATOCRIT 43.7 % (42.0-52.0); HEMOGLOBIN 14.4 g/dl (13.5-17.5); MEAN CORPUSCULAR HEMOGLOBIN 34.3 pg (27.0-33.0); MONO # 0.5 10^3/uL (0.0-0.8); MONO % 5.6 % (2.0-8.0); NEUTROPHILS # 6.8 10^3/uL (1.5-8.5); NEUTROPHILS % 71.6 % (36.0-66.0); PLATELET COUNT, AUTOMATED 217 10^3/uL (150-450); WHITE BLOOD COUNT 9.5 10^3/uL (4.0-10.0)
[2022-11-21 10:21] LABS: APPEARANCE, URINE CLEAR (CLEAR); BACTERIA, URINE AUTO 1+ (NEGATIVE); BILIRUBIN, URINE AUTO NEGATIVE (NEGATIVE); BLOOD, URINE BLOOD NEGATIVE (NEGATIVE); COLOR, URINE YELLOW (YELLOW); GLUCOSE, URINE (UA) AUTO NEGATIVE (NEGATIVE); KETONE, URINE AUTO NEGATIVE (NEGATIVE); LEUKOCYTE ESTERASE, URINE AUTO NEGATIVE (NEGATIVE); MUCUS, URINE SMALL (NEGATIVE); NITRITE, URINE AUTO NEGATIVE (NEGATIVE); PROTEIN, URINE AUTO 1+ mg/dL (NEGATIVE); RBC, URINE AUTO 0 /HPF (0-3); SPECIFIC GRAVITY URINE AUTO 1.015 (1.002-1.035); SQUAMOUS EPITHELIAL CELL UR AU 1 /HPF (0-6); WBC, URINE AUTO 3 /HPF (0-3)
[2022-11-21 10:43] LABS: ALBUMIN 3.5 G/DL (3.2-5.2); CALCIUM LEVEL 8.9 MG/DL (8.3-10.6); CREATININE FOR GFR 2.05 MG/DL (0.70-1.30); GLOMERULAR FILTRATION RATE 34.8 (>49); MAGNESIUM LEVEL 1.8 MG/DL (1.8-2.4); PHOSPHORUS LEVEL 3.2 MG/DL (2.4-5.1); POTASSIUM SERUM 4.5 MMOL/L (3.5-5.1)
[2022-11-21 10:50] LABS: TOTAL PROTEIN,RANDOM URINE 52.2 MG/DL (0.0-14.0)
== END ==
LOC: M PLALAB 07:08
PROVIDERS: ATTEND Internal Medicine Nephrology
DX: Z94.0 Kidney transplant status (principal)

== ENCOUNTER → 2022-12-05 | Outpatient (CLI) | payer MEDICARE, MEDICAID ==
[2022-12-05 10:52] LABS: ALBUMIN 3.4 G/DL (3.2-5.2); CALCIUM LEVEL 8.7 MG/DL (8.3-10.6); CREATININE FOR GFR 1.99 MG/DL (0.70-1.30); MAGNESIUM LEVEL 1.7 MG/DL (1.8-2.4); PHOSPHORUS LEVEL 3.4 MG/DL (2.4-5.1); POTASSIUM SERUM 4.6 MMOL/L (3.5-5.1)
[2022-12-05 10:55] LABS: BASO % 0.4 % (0.0-1.0); EOS # 0.1 10^3/uL (0.0-0.5); EOS % 1.2 % (0.0-3.0); HEMATOCRIT 45.7 % (42.0-52.0); HEMOGLOBIN 14.7 g/dl (13.5-17.5); LYMPH # 1.8 10^3/uL (1.5-5.0); LYMPH % 26.4 % (24.0-44.0); MEAN CORPUSCULAR HEMOGLOBIN 33.3 pg (27.0-33.0); MEAN CORPUSCULAR HGB CONC 32.2 g/dl (32.0-36.5); MEAN CORPUSCULAR VOLUME 103.4 fl (80.0-96.0); MONO # 0.4 10^3/uL (0.0-0.8); MONO % 5.4 % (2.0-8.0); NEUTROPHILS # 4.5 10^3/uL (1.5-8.5); PLATELET COUNT, AUTOMATED 214 10^3/uL (150-450); RED BLOOD COUNT 4.42 10^6/uL (4.30-6.10); WHITE BLOOD COUNT 6.8 10^3/uL (4.0-10.0)
[2022-12-05 10:56] LABS: APPEARANCE, URINE CLEAR (CLEAR); BACTERIA, URINE AUTO NEGATIVE (NEGATIVE); BILIRUBIN, URINE AUTO NEGATIVE (NEGATIVE); BLOOD, URINE BLOOD NEGATIVE (NEGATIVE); COLOR, URINE YELLOW (YELLOW); GLUCOSE, URINE (UA) AUTO NEGATIVE (NEGATIVE); KETONE, URINE AUTO NEGATIVE (NEGATIVE); LEUKOCYTE ESTERASE, URINE AUTO NEGATIVE (NEGATIVE); MUCUS, URINE SMALL (NEGATIVE); NITRITE, URINE AUTO NEGATIVE (NEGATIVE); PROTEIN, URINE AUTO 2+ mg/dL (NEGATIVE); RBC, URINE AUTO 1 /HPF (0-3); SPECIFIC GRAVITY URINE AUTO 1.017 (1.002-1.035); SQUAMOUS EPITHELIAL CELL UR AU 1 /HPF (0-6); UROBILINOGEN, URINE AUTO 0.2 mg/dL (0.0-2.0); WBC, URINE AUTO 7 /HPF (0-3)
[2022-12-05 11:02] LABS: TOTAL PROTEIN,RANDOM URINE 61.6 MG/DL (0.0-14.0)
[2022-12-05 11:07] LABS: CREATININE,RANDOM URINE 188.7 MG/DL
[2022-12-06 21:07] LABS: CMV QUANT DNA PCR (PLASMA) Positive < 200 IU/mL (Negative)
== END ==
LOC: M PLALAB 07:14
PROVIDERS: ATTEND Internal Medicine Nephrology
DX: Z94.0 Kidney transplant status (principal)

== ENCOUNTER 2022-12-07 11:47 | Outpatient (CLI) | payer MEDICARE, MEDICAID ==
[~2022-12-07] VITALS: Ht 167.6 cm; Wt 65.0 kg
[2022-12-07] MEDS ORDERED: NS IV ONE (12:30)
[2022-12-07] MEDS ORDERED: BELATACEPT IV ONE (12:30)
[2022-12-07 12:35] VITALS: BP 128/75
[2022-12-07 13:20] VITALS: BP 139/81
== END 2022-12-07 13:27 | disposition home or self-care (01) ==
LOC: M INFU 11:47
PROVIDERS: ATTEND Internal Medicine Nephrology
DX: Z94.0 Kidney transplant status (principal)
CPT/HCPCS: 96365; J0485

== ENCOUNTER → 2022-12-19 | Outpatient (CLI) | payer MEDICARE, MEDICAID ==
[2022-12-19 11:32] LABS: BASO % 0.4 % (0.0-1.0); EOS # 0.1 10^3/uL (0.0-0.5); EOS % 0.7 % (0.0-3.0); HEMATOCRIT 43.6 % (42.0-52.0); HEMOGLOBIN 14.1 g/dl (13.5-17.5); LYMPH # 1.9 10^3/uL (1.5-5.0); LYMPH % 25.6 % (24.0-44.0); MEAN CORPUSCULAR HEMOGLOBIN 33.3 pg (27.0-33.0); MEAN CORPUSCULAR HGB CONC 32.3 g/dl (32.0-36.5); MEAN CORPUSCULAR VOLUME 103.1 fl (80.0-96.0); MONO # 0.6 10^3/uL (0.0-0.8); NEUTROPHILS # 4.8 10^3/uL (1.5-8.5); NEUTROPHILS % 64.8 % (36.0-66.0); PLATELET COUNT, AUTOMATED 251 10^3/uL (150-450); RED BLOOD COUNT 4.23 10^6/uL (4.30-6.10); WHITE BLOOD COUNT 7.4 10^3/uL (4.0-10.0)
[2022-12-19 11:53] LABS: TOTAL PROTEIN,RANDOM URINE 32.8 MG/DL (0.0-14.0)
[2022-12-19 11:58] LABS: ALBUMIN 3.5 G/DL (3.2-5.2); CALCIUM LEVEL 8.9 MG/DL (8.3-10.6); CREATININE FOR GFR 2.09 MG/DL (0.70-1.30); CREATININE, URINE 118.4 MG/DL; CREATININE,RANDOM URINE 118.4 MG/DL; MAGNESIUM LEVEL 1.8 MG/DL (1.8-2.4); MAU/CREAT RATIO 31.2 MCG/MG (0.0-30.0); PHOSPHORUS LEVEL 4.1 MG/DL (2.4-5.1); POTASSIUM SERUM 4.5 MMOL/L (3.5-5.1)
[2022-12-20 19:08] LABS: CMV QUANT DNA PCR (PLASMA) Negative (Negative)
== END ==
LOC: M PLALAB 07:19
PROVIDERS: ATTEND Internal Medicine Nephrology
DX: N18.6 End stage renal disease (principal); D84.9 Immunodeficiency, unspecified; Z94.0 Kidney transplant status; Z79.899 Other long term (current) drug therapy

== ENCOUNTER → 2023-01-01 | Outpatient (CLI) | payer MEDICARE, MEDICAID ==
[2023-01-01 16:55] LABS: BASO # 0.1 10^3/uL (0.0-0.2); BASO % 0.6 % (0.0-1.0); EOS % 0.1 % (0.0-3.0); HEMOGLOBIN 13.9 g/dl (13.5-17.5); LYMPH % 21.9 % (24.0-44.0); MEAN CORPUSCULAR HEMOGLOBIN 34.1 pg (27.0-33.0); MEAN CORPUSCULAR HGB CONC 33.1 g/dl (32.0-36.5); MEAN CORPUSCULAR VOLUME 102.9 fl (80.0-96.0); MONO # 0.4 10^3/uL (0.0-0.8); MONO % 4.8 % (2.0-8.0); NEUTROPHILS # 6.5 10^3/uL (1.5-8.5); NEUTROPHILS % 71.8 % (36.0-66.0); PLATELET COUNT, AUTOMATED 211 10^3/uL (150-450); RED BLOOD COUNT 4.08 10^6/uL (4.30-6.10)
[2023-01-01 16:56] LABS: APPEARANCE, URINE CLEAR (CLEAR); BACTERIA, URINE AUTO NEGATIVE (NEGATIVE); BILIRUBIN, URINE AUTO NEGATIVE (NEGATIVE); BLOOD, URINE BLOOD NEGATIVE (NEGATIVE); COLOR, URINE YELLOW (YELLOW); GLUCOSE, URINE (UA) AUTO NEGATIVE (NEGATIVE); KETONE, URINE AUTO NEGATIVE (NEGATIVE); LEUKOCYTE ESTERASE, URINE AUTO NEGATIVE (NEGATIVE); NITRITE, URINE AUTO NEGATIVE (NEGATIVE); PROTEIN, URINE AUTO 1+ mg/dL (NEGATIVE); RBC, URINE AUTO 0 /HPF (0-3); SPECIFIC GRAVITY URINE AUTO 1.012 (1.002-1.035); SQUAMOUS EPITHELIAL CELL UR AU 0 /HPF (0-6); UROBILINOGEN, URINE AUTO 0.2 mg/dL (0.0-2.0); WBC, URINE AUTO 0 /HPF (0-3)
[2023-01-01 17:18] LABS: TOTAL PROTEIN,RANDOM URINE 32.6 MG/DL (0.0-14.0)
[2023-01-01 17:22] LABS: CREATININE,RANDOM URINE 94.2 MG/DL
[2023-01-01 17:28] LABS: ALBUMIN 3.4 G/DL (3.2-5.2); CALCIUM LEVEL 8.5 MG/DL (8.3-10.6); CREATININE FOR GFR 1.87 MG/DL (0.70-1.30); GLOMERULAR FILTRATION RATE 38.6 (>49); MAGNESIUM LEVEL 1.6 MG/DL (1.8-2.4); PHOSPHORUS LEVEL 4.5 MG/DL (2.4-5.1); POTASSIUM SERUM 4.1 MMOL/L (3.5-5.1)
[2023-01-03 21:07] LABS: CMV QUANT DNA PCR (PLASMA) Positive < 200 IU/mL (Negative)
== END ==
LOC: M PLALAB 13:54
PROVIDERS: ATTEND Internal Medicine Nephrology
DX: Z94.0 Kidney transplant status (principal); D84.9 Immunodeficiency, unspecified; Z79.899 Other long term (current) drug therapy

== ENCOUNTER 2023-01-04 12:35 | Outpatient (CLI) | payer MEDICARE, MEDICAID ==
[~2023-01-04] VITALS: Ht 167.6 cm; Wt 65.0 kg
[~2023-01-04 12:35] MED LIST changes: +BELATACEPT IV ONE; +NS IV ONE
[2023-01-04 12:51] VITALS: BP 121/73
[2023-01-04 13:42] VITALS: BP 128/74
== END 2023-01-04 13:40 ==
LOC: M INFU 12:35
PROVIDERS: ATTEND Internal Medicine Nephrology
DX: Z94.0 Kidney transplant status (principal)
CPT/HCPCS: 96365; J0485

== ENCOUNTER → 2023-01-15 | Outpatient (CLI) | payer MEDICARE, MEDICAID ==
[~2023-01-15] MED LIST changes: -BELATACEPT IV ONE; -NS IV ONE
[2023-01-15 13:33] LABS: APPEARANCE, URINE CLEAR (CLEAR); BACTERIA, URINE AUTO 1+ (NEGATIVE); BILIRUBIN, URINE AUTO NEGATIVE (NEGATIVE); BLOOD, URINE BLOOD NEGATIVE (NEGATIVE); COLOR, URINE STRAW (YELLOW); GLUCOSE, URINE (UA) AUTO NEGATIVE (NEGATIVE); KETONE, URINE AUTO NEGATIVE (NEGATIVE); LEUKOCYTE ESTERASE, URINE AUTO NEGATIVE (NEGATIVE); NITRITE, URINE AUTO NEGATIVE (NEGATIVE); PROTEIN, URINE AUTO NEGATIVE (NEGATIVE); RBC, URINE AUTO 0 /HPF (0-3); SPECIFIC GRAVITY URINE AUTO 1.005 (1.002-1.035); SQUAMOUS EPITHELIAL CELL UR AU 0 /HPF (0-6); UROBILINOGEN, URINE AUTO 0.2 mg/dL (0.0-2.0); WBC, URINE AUTO 0 /HPF (0-3)
[2023-01-15 13:40] LABS: BASO # 0.1 10^3/uL (0.0-0.2); BASO % 0.6 % (0.0-1.0); EOS # 0.1 10^3/uL (0.0-0.5); EOS % 0.5 % (0.0-3.0); HEMATOCRIT 47.1 % (42.0-52.0); HEMOGLOBIN 15.1 g/dl (13.5-17.5); LYMPH # 2.5 10^3/uL (1.5-5.0); LYMPH % 25.7 % (24.0-44.0); MEAN CORPUSCULAR HEMOGLOBIN 33.2 pg (27.0-33.0); MEAN CORPUSCULAR HGB CONC 32.1 g/dl (32.0-36.5); MEAN CORPUSCULAR VOLUME 103.5 fl (80.0-96.0); MONO # 0.4 10^3/uL (0.0-0.8); MONO % 3.9 % (2.0-8.0); NEUTROPHILS # 6.6 10^3/uL (1.5-8.5); NEUTROPHILS % 68.7 % (36.0-66.0); RED BLOOD COUNT 4.55 10^6/uL (4.30-6.10); WHITE BLOOD COUNT 9.7 10^3/uL (4.0-10.0)
[2023-01-15 13:57] LABS: TOTAL PROTEIN,RANDOM URINE 13.8 MG/DL (0.0-14.0)
[2023-01-15 14:02] LABS: CREATININE,RANDOM URINE 47.3 MG/DL
[2023-01-15 14:04] LABS: ALBUMIN 3.6 G/DL (3.2-5.2); CALCIUM LEVEL 9.1 MG/DL (8.3-10.6); CREATININE FOR GFR 2.04 MG/DL (0.70-1.30); PHOSPHORUS LEVEL 3.4 MG/DL (2.4-5.1); POTASSIUM SERUM 4.7 MMOL/L (3.5-5.1)
[2023-01-16 21:07] LABS: CMV QUANT DNA PCR (PLASMA) Positive < 200 IU/mL (Negative)
== END ==
LOC: M PLALAB 11:06
PROVIDERS: ATTEND Internal Medicine Nephrology
DX: N18.6 End stage renal disease (principal); D84.9 Immunodeficiency, unspecified; Z94.0 Kidney transplant status; Z79.899 Other long term (current) drug therapy

== ENCOUNTER → 2023-01-29 | Outpatient (CLI) | payer MEDICARE, MEDICAID ==
[2023-01-29 10:34] LABS: BASO # 0.1 10^3/uL (0.0-0.2); BASO % 0.5 % (0.0-1.0); EOS # 0.1 10^3/uL (0.0-0.5); EOS % 0.5 % (0.0-3.0); HEMATOCRIT 43.8 % (42.0-52.0); HEMOGLOBIN 14.8 g/dl (13.5-17.5); LYMPH # 2.4 10^3/uL (1.5-5.0); LYMPH % 24.3 % (24.0-44.0); MEAN CORPUSCULAR HEMOGLOBIN 33.7 pg (27.0-33.0); MEAN CORPUSCULAR HGB CONC 33.8 g/dl (32.0-36.5); MEAN CORPUSCULAR VOLUME 99.8 fl (80.0-96.0); MONO # 0.7 10^3/uL (0.0-0.8); MONO % 7.2 % (2.0-8.0); NEUTROPHILS # 6.7 10^3/uL (1.5-8.5); NEUTROPHILS % 66.9 % (36.0-66.0); PLATELET COUNT, AUTOMATED 244 10^3/uL (150-450); RED BLOOD COUNT 4.39 10^6/uL (4.30-6.10)
[2023-01-29 10:35] LABS: APPEARANCE, URINE CLEAR (CLEAR); BACTERIA, URINE AUTO 1+ (NEGATIVE); BILIRUBIN, URINE AUTO NEGATIVE (NEGATIVE); BLOOD, URINE BLOOD NEGATIVE (NEGATIVE); COLOR, URINE YELLOW (YELLOW); GLUCOSE, URINE (UA) AUTO NEGATIVE (NEGATIVE); KETONE, URINE AUTO NEGATIVE (NEGATIVE); LEUKOCYTE ESTERASE, URINE AUTO NEGATIVE (NEGATIVE); NITRITE, URINE AUTO NEGATIVE (NEGATIVE); PROTEIN, URINE AUTO NEGATIVE (NEGATIVE); RBC, URINE AUTO 0 /HPF (0-3); SPECIFIC GRAVITY URINE AUTO 1.012 (1.002-1.035); SQUAMOUS EPITHELIAL CELL UR AU 1 /HPF (0-6); UROBILINOGEN, URINE AUTO 0.2 mg/dL (0.0-2.0); WBC, URINE AUTO 4 /HPF (0-3)
[2023-01-29 10:38] LABS: ALBUMIN 3.9 G/DL (3.2-5.2); CALCIUM LEVEL 9.2 MG/DL (8.3-10.6); CREATININE FOR GFR 2.13 MG/DL (0.70-1.30); GLOMERULAR FILTRATION RATE 33.3 (>49); MAGNESIUM LEVEL 2.1 MG/DL (1.8-2.4); PHOSPHORUS LEVEL 4.2 MG/DL (2.4-5.1); POTASSIUM SERUM 4.4 MMOL/L (3.5-5.1)
[2023-01-29 10:54] LABS: TOTAL PROTEIN,RANDOM URINE 27.6 MG/DL (0.0-14.0)
[2023-01-29 10:59] LABS: CREATININE,RANDOM URINE 82.1 MG/DL
[2023-01-31 18:12] LABS: CMV QUANT DNA PCR (PLASMA) Positive < 200 IU/mL (Negative)
== END ==
LOC: M PLALAB 07:11
PROVIDERS: ATTEND Internal Medicine Nephrology
DX: N18.6 End stage renal disease (principal); D84.9 Immunodeficiency, unspecified; Z94.0 Kidney transplant status; Z79.899 Other long term (current) drug therapy

== ENCOUNTER 2023-02-01 12:05 | Outpatient (CLI) | payer MEDICARE, MEDICAID ==
[~2023-02-01] VITALS: Ht 167.6 cm; Wt 65.0 kg
[2023-02-01 12:10] VITALS: BP 142/95
[2023-02-01] MEDS ORDERED: NS IV ONE (12:30)
[2023-02-01] MEDS ORDERED: BELATACEPT IV ONE (12:30)
[2023-02-01 14:00] VITALS: BP 170/84
== END 2023-02-01 14:00 | disposition home or self-care (01) ==
LOC: M INFU 12:05
PROVIDERS: ATTEND Internal Medicine Nephrology
DX: Z94.0 Kidney transplant status (principal); Z91.048 Other nonmedicinal substance allergy status
CPT/HCPCS: 96365; J0485

== ENCOUNTER → 2023-02-13 | Outpatient (CLI) | payer MEDICARE, MEDICAID ==
[2023-02-13 10:38] LABS: BASO # 0.1 10^3/uL (0.0-0.2); BASO % 0.6 % (0.0-1.0); EOS # 0.1 10^3/uL (0.0-0.5); EOS % 0.7 % (0.0-3.0); HEMOGLOBIN 14.8 g/dl (13.5-17.5); LYMPH # 2.9 10^3/uL (1.5-5.0); LYMPH % 33.2 % (24.0-44.0); MEAN CORPUSCULAR HEMOGLOBIN 33.1 pg (27.0-33.0); MEAN CORPUSCULAR HGB CONC 32.9 g/dl (32.0-36.5); MEAN CORPUSCULAR VOLUME 100.7 fl (80.0-96.0); MONO # 0.6 10^3/uL (0.0-0.8); MONO % 6.3 % (2.0-8.0); NEUTROPHILS # 5.2 10^3/uL (1.5-8.5); NEUTROPHILS % 58.6 % (36.0-66.0); PLATELET COUNT, AUTOMATED 236 10^3/uL (150-450); RED BLOOD COUNT 4.47 10^6/uL (4.30-6.10); WHITE BLOOD COUNT 8.9 10^3/uL (4.0-10.0)
[2023-02-13 10:41] LABS: APPEARANCE, URINE CLEAR (CLEAR); BACTERIA, URINE AUTO NEGATIVE (NEGATIVE); BILIRUBIN, URINE AUTO NEGATIVE (NEGATIVE); BLOOD, URINE BLOOD NEGATIVE (NEGATIVE); COLOR, URINE YELLOW (YELLOW); GLUCOSE, URINE (UA) AUTO NEGATIVE (NEGATIVE); KETONE, URINE AUTO NEGATIVE (NEGATIVE); LEUKOCYTE ESTERASE, URINE AUTO 1+ (NEGATIVE); MUCUS, URINE SMALL (NEGATIVE); NITRITE, URINE AUTO NEGATIVE (NEGATIVE); PROTEIN, URINE AUTO 1+ mg/dL (NEGATIVE); RBC, URINE AUTO 0 /HPF (0-3); SPECIFIC GRAVITY URINE AUTO 1.013 (1.002-1.035); SQUAMOUS EPITHELIAL CELL UR AU 1 /HPF (0-6); UROBILINOGEN, URINE AUTO 0.2 mg/dL (0.0-2.0); WBC, URINE AUTO 13 /HPF (0-3)
[2023-02-13 10:47] LABS: ALBUMIN 3.7 G/DL (3.2-5.2); CALCIUM LEVEL 9.2 MG/DL (8.3-10.6); CREATININE FOR GFR 2.06 MG/DL (0.70-1.30); GLOMERULAR FILTRATION RATE 34.6 (>49); MAGNESIUM LEVEL 1.7 MG/DL (1.8-2.4); PHOSPHORUS LEVEL 3.8 MG/DL (2.4-5.1); POTASSIUM SERUM 4.1 MMOL/L (3.5-5.1)
[2023-02-13 11:06] LABS: TOTAL PROTEIN,RANDOM URINE 39.2 MG/DL (0.0-14.0)
[2023-02-13 11:10] LABS: CREATININE,RANDOM URINE 146.2 MG/DL
[2023-02-14 17:08] LABS: CMV QUANT DNA PCR (PLASMA) Positive < 200 IU/mL (Negative)
== END ==
LOC: M PLALAB 07:04
PROVIDERS: ATTEND Internal Medicine Nephrology
DX: Z94.0 Kidney transplant status (principal); Z79.899 Other long term (current) drug therapy; N18.5 Chronic kidney disease, stage 5; D84.9 Immunodeficiency, unspecified

== ENCOUNTER → 2023-02-26 | Outpatient (CLI) | payer MEDICARE, MEDICAID ==
[2023-02-26 10:38] LABS: APPEARANCE, URINE MANUAL CLEAR (CLEAR); COLOR, URINE MANUAL YELLOW (YELLOW)
[2023-02-26 10:39] LABS: SPECIFIC GRAVITY,URINE MANUAL 1.015 (1.002-1.035)
[2023-02-26 10:40] LABS: BILIRUBIN, URINE MANUAL NEGATIVE (NEGATIVE); BLOOD URINE MANUAL NEGATIVE (NEGATIVE); GLUCOSE, URINE (UA) MANUAL NEGATIVE (NEGATIVE); KETONE, URINE MANUAL NEGATIVE (NEGATIVE); LEUKOCYTE ESTERASE, URINE MAN NEGATIVE (NEGATIVE); NITRITE, URINE MANUAL NEGATIVE (NEGATIVE); PROTEIN, URINE MANUAL NEGATIVE (NEGATIVE); UROBILINOGEN, URINE MANUAL NORMAL (NORMAL)
[2023-02-26 11:02] LABS: BASO # 0.1 10^3/uL (0.0-0.2); BASO % 0.5 % (0.0-1.0); EOS # 0.1 10^3/uL (0.0-0.5); EOS % 0.6 % (0.0-3.0); HEMATOCRIT 45.8 % (42.0-52.0); LYMPH # 2.8 10^3/uL (1.5-5.0); LYMPH % 27.9 % (24.0-44.0); MEAN CORPUSCULAR HEMOGLOBIN 32.8 pg (27.0-33.0); MEAN CORPUSCULAR HGB CONC 32.8 g/dl (32.0-36.5); MONO # 0.7 10^3/uL (0.0-0.8); MONO % 6.6 % (2.0-8.0); NEUTROPHILS # 6.3 10^3/uL (1.5-8.5); NEUTROPHILS % 63.8 % (36.0-66.0); PLATELET COUNT, AUTOMATED 231 10^3/uL (150-450); RED BLOOD COUNT 4.58 10^6/uL (4.30-6.10)
[2023-02-26 11:23] LABS: TOTAL PROTEIN,RANDOM URINE 36.3 MG/DL (0.0-14.0)
[2023-02-26 11:30] LABS: ALBUMIN 3.7 G/DL (3.2-5.2); CALCIUM LEVEL 8.9 MG/DL (8.3-10.6); CREATININE FOR GFR 2.12 MG/DL (0.70-1.30); GLOMERULAR FILTRATION RATE 33.4 (>49); MAGNESIUM LEVEL 1.8 MG/DL (1.8-2.4); PHOSPHORUS LEVEL 4.4 MG/DL (2.4-5.1); POTASSIUM SERUM 4.5 MMOL/L (3.5-5.1)
[2023-02-27 18:08] LABS: CMV QUANT DNA PCR (PLASMA) Positive < 200 IU/mL (Negative)
== END ==
LOC: M PLALAB 08:24
PROVIDERS: ATTEND Internal Medicine Nephrology
DX: Z94.0 Kidney transplant status (principal); N18.5 Chronic kidney disease, stage 5; D84.9 Immunodeficiency, unspecified; Z79.899 Other long term (current) drug therapy

== ENCOUNTER 2023-03-01 07:49 | Outpatient (CLI) | payer MEDICARE, MEDICAID ==
[~2023-03-01] VITALS: Ht 167.6 cm; Wt 65.0 kg
[2023-03-01 12:25] VITALS: BP 123/70; O2SAT 100
[2023-03-01] MEDS ORDERED: NS IV ONE (12:30)
[2023-03-01] MEDS ORDERED: BELATACEPT IV ONE (12:30)
[2023-03-01 13:50] VITALS: BP 141/78; O2SAT 97
== END 2023-03-01 13:50 | disposition home or self-care (01) ==
LOC: M INFU 07:49
PROVIDERS: ATTEND Internal Medicine Nephrology
DX: Z94.0 Kidney transplant status (principal)
CPT/HCPCS: 96365; J0485

== ENCOUNTER → 2023-03-12 | Outpatient (REF) | payer MEDICARE, MEDICAID ==
[2023-03-12 17:31] LABS: BASO # 0.1 10^3/uL (0.0-0.2); BASO % 0.5 % (0.0-1.0); EOS # 0.1 10^3/uL (0.0-0.5); EOS % 0.9 % (0.0-3.0); HEMATOCRIT 42.6 % (42.0-52.0); HEMOGLOBIN 14.3 g/dl (13.5-17.5); LYMPH # 3.1 10^3/uL (1.5-5.0); MEAN CORPUSCULAR HEMOGLOBIN 32.9 pg (27.0-33.0); MEAN CORPUSCULAR HGB CONC 33.6 g/dl (32.0-36.5); MEAN CORPUSCULAR VOLUME 98.2 fl (80.0-96.0); MONO # 0.7 10^3/uL (0.0-0.8); MONO % 6.9 % (2.0-8.0); NEUTROPHILS # 5.7 10^3/uL (1.5-8.5); NEUTROPHILS % 59.2 % (36.0-66.0); PLATELET COUNT, AUTOMATED 226 10^3/uL (150-450); RED BLOOD COUNT 4.34 10^6/uL (4.30-6.10); WHITE BLOOD COUNT 9.6 10^3/uL (4.0-10.0)
[2023-03-12 18:51] LABS: TOTAL PROTEIN,RANDOM URINE 13.5 MG/DL (0.0-14.0)
[2023-03-12 18:56] LABS: CREATININE,RANDOM URINE 61.8 MG/DL
[2023-03-12 18:59] LABS: ALBUMIN 3.5 G/DL (3.2-5.2); BILIRUBIN,TOTAL 0.5 MG/DL (0.3-1.2); CREATININE FOR GFR 2.18 MG/DL (0.70-1.30); GLOMERULAR FILTRATION RATE 32.4 (>49); MAGNESIUM LEVEL 1.9 MG/DL (1.8-2.4); POTASSIUM SERUM 4.4 MMOL/L (3.5-5.1); TOTAL PROTEIN 5.9 G/DL (5.7-8.2)
[2023-03-12 19:17] LABS: APPEARANCE, URINE CLEAR (CLEAR); BACTERIA, URINE AUTO 1+ (NEGATIVE); BILIRUBIN, URINE AUTO NEGATIVE (NEGATIVE); BLOOD, URINE BLOOD NEGATIVE (NEGATIVE); COLOR, URINE YELLOW (YELLOW); GLUCOSE, URINE (UA) AUTO NEGATIVE (NEGATIVE); KETONE, URINE AUTO NEGATIVE (NEGATIVE); LEUKOCYTE ESTERASE, URINE AUTO TRACE (NEGATIVE); NITRITE, URINE AUTO NEGATIVE (NEGATIVE); PROTEIN, URINE AUTO NEGATIVE (NEGATIVE); RBC, URINE AUTO 0 /HPF (0-3); SPECIFIC GRAVITY URINE AUTO 1.008 (1.002-1.035); SQUAMOUS EPITHELIAL CELL UR AU 1 /HPF (0-6); UROBILINOGEN, URINE AUTO 0.2 mg/dL (0.0-2.0); WBC, URINE AUTO 3 /HPF (0-3)
[2023-03-14 14:09] LABS: CMV QUANT DNA PCR (PLASMA) Positive < 200 IU/mL (Negative)
== END ==
LOC: M PLALAB 16:45
PROVIDERS: ATTEND Internal Medicine Nephrology
DX: Z94.0 Kidney transplant status (principal); N18.5 Chronic kidney disease, stage 5; D84.9 Immunodeficiency, unspecified; Z79.899 Other long term (current) drug therapy

== ENCOUNTER → 2023-03-27 | Outpatient (CLI) | payer MEDICARE, MEDICAID ==
[2023-03-27 11:30] LABS: APPEARANCE, URINE CLEAR (CLEAR); BACTERIA, URINE AUTO NEGATIVE (NEGATIVE); BILIRUBIN, URINE AUTO NEGATIVE (NEGATIVE); BLOOD, URINE BLOOD NEGATIVE (NEGATIVE); COLOR, URINE YELLOW (YELLOW); GLUCOSE, URINE (UA) AUTO NEGATIVE (NEGATIVE); KETONE, URINE AUTO NEGATIVE (NEGATIVE); LEUKOCYTE ESTERASE, URINE AUTO TRACE (NEGATIVE); MUCUS, URINE SMALL (NEGATIVE); NITRITE, URINE AUTO NEGATIVE (NEGATIVE); PROTEIN, URINE AUTO 1+ mg/dL (NEGATIVE); RBC, URINE AUTO 2 /HPF (0-3); SPECIFIC GRAVITY URINE AUTO 1.014 (1.002-1.035); SQUAMOUS EPITHELIAL CELL UR AU 3 /HPF (0-6); UROBILINOGEN, URINE AUTO 0.2 mg/dL (0.0-2.0); WBC, URINE AUTO 6 /HPF (0-3)
[2023-03-27 11:33] LABS: BASO % 0.4 % (0.0-1.0); EOS # 0.1 10^3/uL (0.0-0.5); EOS % 0.8 % (0.0-3.0); HEMATOCRIT 45.3 % (42.0-52.0); HEMOGLOBIN 14.9 g/dl (13.5-17.5); LYMPH # 2.7 10^3/uL (1.5-5.0); LYMPH % 30.7 % (24.0-44.0); MEAN CORPUSCULAR HEMOGLOBIN 32.6 pg (27.0-33.0); MEAN CORPUSCULAR HGB CONC 32.9 g/dl (32.0-36.5); MEAN CORPUSCULAR VOLUME 99.1 fl (80.0-96.0); MONO # 0.6 10^3/uL (0.0-0.8); MONO % 6.2 % (2.0-8.0); NEUTROPHILS # 5.5 10^3/uL (1.5-8.5); PLATELET COUNT, AUTOMATED 251 10^3/uL (150-450); RED BLOOD COUNT 4.57 10^6/uL (4.30-6.10); WHITE BLOOD COUNT 8.9 10^3/uL (4.0-10.0)
[2023-03-27 11:51] LABS: TOTAL PROTEIN,RANDOM URINE 34.7 MG/DL (0.0-14.0)
[2023-03-27 11:56] LABS: ALBUMIN 3.6 G/DL (3.2-5.2); CALCIUM LEVEL 9.9 MG/DL (8.3-10.6); CREATININE FOR GFR 1.9 MG/DL (0.70-1.30); GLOMERULAR FILTRATION RATE 37.9 (>49); MAGNESIUM LEVEL 1.7 MG/DL (1.8-2.4); PHOSPHORUS LEVEL 4.3 MG/DL (2.4-5.1); POTASSIUM SERUM 4.4 MMOL/L (3.5-5.1)
[2023-03-27 11:56] LABS: CREATININE,RANDOM URINE 131.5 MG/DL
[2023-03-28 17:08] LABS: CMV QUANT DNA PCR (PLASMA) Positive < 200 IU/mL (Negative)
== END ==
LOC: M PLALAB 07:15
PROVIDERS: ATTEND Internal Medicine Nephrology
DX: Z94.0 Kidney transplant status (principal)

== ENCOUNTER 2023-03-29 12:15 | Outpatient (CLI) | payer MEDICARE, MEDICAID ==
[~2023-03-29] VITALS: Ht 197.5 cm; Wt 65.0 kg
[2023-03-29 12:19] VITALS: BP 106/64; O2SAT 97
[2023-03-29] MEDS ORDERED: BELATACEPT IV ONE (12:30)
[2023-03-29] MEDS ORDERED: NS IV ONE (12:30)
[2023-03-29 13:51] VITALS: BP 106/65; O2SAT 97
== END 2023-03-29 13:50 | disposition home or self-care (01) ==
LOC: M INFU 12:15
PROVIDERS: ATTEND Internal Medicine Nephrology
DX: Z94.0 Kidney transplant status (principal)
CPT/HCPCS: 96365; J0485

== ENCOUNTER → 2023-04-23 | Outpatient (CLI) | payer MEDICARE, MEDICAID ==
[2023-04-23 10:34] LABS: APPEARANCE, URINE CLEAR (CLEAR); BACTERIA, URINE AUTO NEGATIVE (NEGATIVE); BILIRUBIN, URINE AUTO NEGATIVE (NEGATIVE); BLOOD, URINE BLOOD NEGATIVE (NEGATIVE); COLOR, URINE YELLOW (YELLOW); GLUCOSE, URINE (UA) AUTO NEGATIVE (NEGATIVE); KETONE, URINE AUTO NEGATIVE (NEGATIVE); LEUKOCYTE ESTERASE, URINE AUTO NEGATIVE (NEGATIVE); NITRITE, URINE AUTO NEGATIVE (NEGATIVE); PROTEIN, URINE AUTO NEGATIVE (NEGATIVE); RBC, URINE AUTO 0 /HPF (0-3); SPECIFIC GRAVITY URINE AUTO 1.013 (1.002-1.035); SQUAMOUS EPITHELIAL CELL UR AU 1 /HPF (0-6); UROBILINOGEN, URINE AUTO 0.2 mg/dL (0.0-2.0); WBC, URINE AUTO 0 /HPF (0-3)
[2023-04-23 10:37] LABS: BASO # 0.1 10^3/uL (0.0-0.2); BASO % 0.8 % (0.0-1.0); EOS # 0.1 10^3/uL (0.0-0.5); EOS % 0.8 % (0.0-3.0); HEMATOCRIT 44.1 % (42.0-52.0); HEMOGLOBIN 14.9 g/dl (13.5-17.5); LYMPH # 2.5 10^3/uL (1.5-5.0); LYMPH % 32.2 % (24.0-44.0); MEAN CORPUSCULAR HEMOGLOBIN 33.4 pg (27.0-33.0); MEAN CORPUSCULAR HGB CONC 33.8 g/dl (32.0-36.5); MEAN CORPUSCULAR VOLUME 98.9 fl (80.0-96.0); MONO # 0.5 10^3/uL (0.0-0.8); MONO % 6.9 % (2.0-8.0); NEUTROPHILS # 4.6 10^3/uL (1.5-8.5); NEUTROPHILS % 58.7 % (36.0-66.0); PLATELET COUNT, AUTOMATED 217 10^3/uL (150-450); RED BLOOD COUNT 4.46 10^6/uL (4.30-6.10); WHITE BLOOD COUNT 7.9 10^3/uL (4.0-10.0)
[2023-04-23 11:07] LABS: ALBUMIN 3.6 G/DL (3.2-5.2); BILIRUBIN,TOTAL 0.5 MG/DL (0.3-1.2); CALCIUM LEVEL 9.4 MG/DL (8.3-10.6); CREATININE FOR GFR 2.03 MG/DL (0.70-1.30); GLOMERULAR FILTRATION RATE 35.2 (>49); PHOSPHORUS LEVEL 3.6 MG/DL (2.4-5.1); POTASSIUM SERUM 4.2 MMOL/L (3.5-5.1); TOTAL PROTEIN 6.3 G/DL (5.7-8.2)
[2023-04-23 16:03] LABS: TOTAL PROTEIN,RANDOM URINE 32.6 MG/DL (0.0-14.0)
[2023-04-23 16:08] LABS: CREATININE,RANDOM URINE 121.5 MG/DL
[2023-04-24 19:06] LABS: CMV QUANT DNA PCR (PLASMA) Positive < 200 IU/mL (Negative)
== END ==
LOC: M PLALAB 07:20
PROVIDERS: ATTEND Internal Medicine Nephrology
DX: Z94.0 Kidney transplant status (principal); N18.5 Chronic kidney disease, stage 5; Z79.899 Other long term (current) drug therapy

== ENCOUNTER 2023-04-26 12:45 | Outpatient (CLI) | payer MEDICARE, MEDICAID ==
[~2023-04-26] VITALS: Ht 175.3 cm; Wt 79.1 kg
[2023-04-26 12:30] VITALS: BP 128/85; O2SAT 99
[2023-04-26] MEDS ORDERED: BELATACEPT IV ONE (13:30)
[2023-04-26] MEDS ORDERED: NS IV ONE (13:30)
[2023-04-26 14:30] VITALS: BP 131/76; O2SAT 96
== END 2023-04-26 14:30 | disposition home or self-care (01) ==
LOC: M INFU 12:45
PROVIDERS: ATTEND Internal Medicine Nephrology
DX: Z94.0 Kidney transplant status (principal)
CPT/HCPCS: 96365; J0485

== ENCOUNTER → 2023-05-07 | Outpatient (CLI) | payer MEDICARE, MEDICAID ==
[2023-05-07 09:58] LABS: BASO # 0.1 10^3/uL (0.0-0.2); BASO % 0.6 % (0.0-1.0); EOS # 0.1 10^3/uL (0.0-0.5); EOS % 0.6 % (0.0-3.0); HEMATOCRIT 47.5 % (42.0-52.0); HEMOGLOBIN 15.3 g/dl (13.5-17.5); LYMPH # 3.1 10^3/uL (1.5-5.0); MEAN CORPUSCULAR HGB CONC 32.2 g/dl (32.0-36.5); MEAN CORPUSCULAR VOLUME 99.4 fl (80.0-96.0); MONO # 0.8 10^3/uL (0.0-0.8); MONO % 7.6 % (2.0-8.0); NEUTROPHILS # 5.9 10^3/uL (1.5-8.5); NEUTROPHILS % 59.3 % (36.0-66.0); PLATELET COUNT, AUTOMATED 245 10^3/uL (150-450); RED BLOOD COUNT 4.78 10^6/uL (4.30-6.10); WHITE BLOOD COUNT 9.9 10^3/uL (4.0-10.0)
[2023-05-07 10:02] LABS: APPEARANCE, URINE CLEAR (CLEAR); BACTERIA, URINE AUTO NEGATIVE (NEGATIVE); BILIRUBIN, URINE AUTO NEGATIVE (NEGATIVE); BLOOD, URINE BLOOD NEGATIVE (NEGATIVE); COLOR, URINE YELLOW (YELLOW); GLUCOSE, URINE (UA) AUTO NEGATIVE (NEGATIVE); KETONE, URINE AUTO NEGATIVE (NEGATIVE); LEUKOCYTE ESTERASE, URINE AUTO NEGATIVE (NEGATIVE); MUCUS, URINE SMALL (NEGATIVE); NITRITE, URINE AUTO NEGATIVE (NEGATIVE); PROTEIN, URINE AUTO NEGATIVE (NEGATIVE); RBC, URINE AUTO 0 /HPF (0-3); SPECIFIC GRAVITY URINE AUTO 1.012 (1.002-1.035); SQUAMOUS EPITHELIAL CELL UR AU 0 /HPF (0-6); UROBILINOGEN, URINE AUTO 0.2 mg/dL (0.0-2.0); WBC, URINE AUTO 1 /HPF (0-3)
[2023-05-07 10:08] LABS: ALBUMIN 3.6 G/DL (3.2-5.2); BILIRUBIN,TOTAL 0.8 MG/DL (0.3-1.2); CALCIUM LEVEL 9.2 MG/DL (8.3-10.6); CREATININE FOR GFR 2.08 MG/DL (0.70-1.30); GLOMERULAR FILTRATION RATE 34.2 (>49); MAGNESIUM LEVEL 1.7 MG/DL (1.8-2.4); PHOSPHORUS LEVEL 4.4 MG/DL (2.4-5.1); POTASSIUM SERUM 4.3 MMOL/L (3.5-5.1); TOTAL PROTEIN 6.4 G/DL (5.7-8.2)
[2023-05-07 10:12] LABS: TOTAL PROTEIN,RANDOM URINE 22.2 MG/DL (0.0-14.0)
[2023-05-07 10:17] LABS: CREATININE,RANDOM URINE 110.6 MG/DL
[2023-05-08 13:08] LABS: CMV QUANT DNA PCR (PLASMA) Positive < 200 IU/mL (Negative)
== END ==
LOC: M PLALAB 07:39
PROVIDERS: ATTEND Internal Medicine Nephrology
DX: Z94.0 Kidney transplant status (principal); N18.5 Chronic kidney disease, stage 5; D84.9 Immunodeficiency, unspecified; Z79.899 Other long term (current) drug therapy

== ENCOUNTER → 2023-05-22 | Outpatient (CLI) | payer MEDICARE, MEDICAID ==
[2023-05-22 10:21] LABS: BASO # 0.1 10^3/uL (0.0-0.2); BASO % 0.6 % (0.0-1.0); EOS # 0.1 10^3/uL (0.0-0.5); EOS % 0.8 % (0.0-3.0); HEMATOCRIT 46.8 % (42.0-52.0); HEMOGLOBIN 15.1 g/dl (13.5-17.5); LYMPH % 30.8 % (24.0-44.0); MEAN CORPUSCULAR HEMOGLOBIN 32.3 pg (27.0-33.0); MEAN CORPUSCULAR HGB CONC 32.3 g/dl (32.0-36.5); MEAN CORPUSCULAR VOLUME 100.2 fl (80.0-96.0); MONO # 0.7 10^3/uL (0.0-0.8); MONO % 7.1 % (2.0-8.0); NEUTROPHILS # 5.9 10^3/uL (1.5-8.5); PLATELET COUNT, AUTOMATED 252 10^3/uL (150-450); RED BLOOD COUNT 4.67 10^6/uL (4.30-6.10); WHITE BLOOD COUNT 9.9 10^3/uL (4.0-10.0)
[2023-05-22 10:26] LABS: APPEARANCE, URINE CLEAR (CLEAR); BACTERIA, URINE AUTO NEGATIVE (NEGATIVE); BILIRUBIN, URINE AUTO NEGATIVE (NEGATIVE); BLOOD, URINE BLOOD NEGATIVE (NEGATIVE); COLOR, URINE YELLOW (YELLOW); GLUCOSE, URINE (UA) AUTO NEGATIVE (NEGATIVE); KETONE, URINE AUTO NEGATIVE (NEGATIVE); LEUKOCYTE ESTERASE, URINE AUTO NEGATIVE (NEGATIVE); NITRITE, URINE AUTO NEGATIVE (NEGATIVE); PROTEIN, URINE AUTO NEGATIVE (NEGATIVE); RBC, URINE AUTO 0 /HPF (0-3); SPECIFIC GRAVITY URINE AUTO 1.012 (1.002-1.035); SQUAMOUS EPITHELIAL CELL UR AU 1 /HPF (0-6); UROBILINOGEN, URINE AUTO 0.2 mg/dL (0.0-2.0); WBC, URINE AUTO 1 /HPF (0-3)
[2023-05-22 10:52] LABS: TOTAL PROTEIN,RANDOM URINE 28.7 MG/DL (0.0-14.0)
[2023-05-22 10:57] LABS: CREATININE,RANDOM URINE 117.3 MG/DL
[2023-05-22 11:14] LABS: ALBUMIN 3.6 G/DL (3.2-5.2); BILIRUBIN,TOTAL 0.5 MG/DL (0.3-1.2); CALCIUM LEVEL 9.3 MG/DL (8.3-10.6); CREATININE FOR GFR 2.06 MG/DL (0.70-1.30); GLOMERULAR FILTRATION RATE 34.6 (>49); MAGNESIUM LEVEL 1.8 MG/DL (1.8-2.4); PHOSPHORUS LEVEL 4.6 MG/DL (2.4-5.1); POTASSIUM SERUM 4.7 MMOL/L (3.5-5.1); TOTAL PROTEIN 6.4 G/DL (5.7-8.2)
[2023-05-23 13:08] LABS: CMV QUANT DNA PCR (PLASMA) Positive < 200 IU/mL (Negative)
== END ==
LOC: M PLALAB 07:26
PROVIDERS: ATTEND Internal Medicine Nephrology
DX: N18.5 Chronic kidney disease, stage 5 (principal); D84.9 Immunodeficiency, unspecified; Z94.0 Kidney transplant status; Z79.899 Other long term (current) drug therapy

== ENCOUNTER 2023-05-24 12:25 | Outpatient (CLI) | payer MEDICARE, MEDICAID ==
[~2023-05-24] VITALS: Ht 175.3 cm; Wt 78.9 kg
[2023-05-24 12:37] VITALS: BP 172/89; O2SAT 98
[2023-05-24] MEDS ORDERED: NS IV ONE (13:00)
[2023-05-24] MEDS ORDERED: BELATACEPT IV ONE (13:00)
[2023-05-24 14:27] VITALS: BP 144/88; O2SAT 97
== END 2023-05-24 14:25 | disposition home or self-care (01) ==
LOC: M INFU 12:25
PROVIDERS: ATTEND Internal Medicine Nephrology
DX: Z94.0 Kidney transplant status (principal)
CPT/HCPCS: 96365; J0485

== ENCOUNTER → 2023-06-04 | Outpatient (CLI) | payer MEDICARE, MEDICAID ==
[2023-06-04 11:00] LABS: APPEARANCE, URINE CLEAR (CLEAR); BACTERIA, URINE AUTO 1+ (NEGATIVE); BILIRUBIN, URINE AUTO NEGATIVE (NEGATIVE); BLOOD, URINE BLOOD NEGATIVE (NEGATIVE); COLOR, URINE YELLOW (YELLOW); GLUCOSE, URINE (UA) AUTO NEGATIVE (NEGATIVE); KETONE, URINE AUTO NEGATIVE (NEGATIVE); LEUKOCYTE ESTERASE, URINE AUTO TRACE (NEGATIVE); MUCUS, URINE SMALL (NEGATIVE); NITRITE, URINE AUTO NEGATIVE (NEGATIVE); PROTEIN, URINE AUTO 1+ mg/dL (NEGATIVE); RBC, URINE AUTO 1 /HPF (0-3); SPECIFIC GRAVITY URINE AUTO 1.014 (1.002-1.035); SQUAMOUS EPITHELIAL CELL UR AU 3 /HPF (0-6); UROBILINOGEN, URINE AUTO 0.2 mg/dL (0.0-2.0); WBC, URINE AUTO 14 /HPF (0-3)
[2023-06-04 11:17] LABS: TOTAL PROTEIN,RANDOM URINE 44.3 MG/DL (0.0-14.0)
[2023-06-04 11:26] LABS: ALBUMIN 3.8 G/DL (3.2-5.2); BILIRUBIN,TOTAL 0.6 MG/DL (0.3-1.2); CALCIUM LEVEL 9.7 MG/DL (8.3-10.6); CREATININE FOR GFR 2.25 MG/DL (0.70-1.30); GLOMERULAR FILTRATION RATE 31.2 (>49); PHOSPHORUS LEVEL 3.7 MG/DL (2.4-5.1); POTASSIUM SERUM 5.5 MMOL/L (3.5-5.1); TOTAL PROTEIN 6.7 G/DL (5.7-8.2)
[2023-06-04 11:27] LABS: BASO # 0.1 10^3/uL (0.0-0.2); BASO % 0.7 % (0.0-1.0); EOS # 0.1 10^3/uL (0.0-0.5); EOS % 0.6 % (0.0-3.0); HEMATOCRIT 50.2 % (42.0-52.0); LYMPH # 2.8 10^3/uL (1.5-5.0); LYMPH % 30.8 % (24.0-44.0); MEAN CORPUSCULAR HEMOGLOBIN 32.3 pg (27.0-33.0); MEAN CORPUSCULAR HGB CONC 31.9 g/dl (32.0-36.5); MEAN CORPUSCULAR VOLUME 101.2 fl (80.0-96.0); MONO # 0.6 10^3/uL (0.0-0.8); MONO % 6.8 % (2.0-8.0); NEUTROPHILS # 5.4 10^3/uL (1.5-8.5); NEUTROPHILS % 60.4 % (36.0-66.0); PLATELET COUNT, AUTOMATED 263 10^3/uL (150-450); RED BLOOD COUNT 4.96 10^6/uL (4.30-6.10)
[2023-06-05 23:07] LABS: CMV QUANT DNA PCR (PLASMA) Positive < 200 IU/mL (Negative)
== END ==
LOC: M PLALAB 07:12
PROVIDERS: ATTEND Internal Medicine Nephrology
DX: N18.5 Chronic kidney disease, stage 5 (principal); D84.9 Immunodeficiency, unspecified; Z94.0 Kidney transplant status; Z79.899 Other long term (current) drug therapy

== ENCOUNTER → 2023-06-05 | Outpatient (CLI) | payer MEDICARE, MEDICAID | LOC: M RAD 15:25 | PROVIDERS: ATTEND Student in an Organized Health Care Education/Training Program | DX: F17.210 Nicotine dependence, cigarettes, uncomplicated (principal) ==

== ENCOUNTER → 2023-06-18 | Outpatient (CLI) | payer MEDICARE, MEDICAID ==
[2023-06-18 13:32] LABS: APPEARANCE, URINE CLEAR (CLEAR); BACTERIA, URINE AUTO NEGATIVE (NEGATIVE); BILIRUBIN, URINE AUTO NEGATIVE (NEGATIVE); BLOOD, URINE BLOOD NEGATIVE (NEGATIVE); COLOR, URINE COLORLESS (YELLOW); GLUCOSE, URINE (UA) AUTO NEGATIVE (NEGATIVE); KETONE, URINE AUTO NEGATIVE (NEGATIVE); LEUKOCYTE ESTERASE, URINE AUTO NEGATIVE (NEGATIVE); NITRITE, URINE AUTO NEGATIVE (NEGATIVE); PROTEIN, URINE AUTO NEGATIVE (NEGATIVE); RBC, URINE AUTO 0 /HPF (0-3); SPECIFIC GRAVITY URINE AUTO 1.002 (1.002-1.035); SQUAMOUS EPITHELIAL CELL UR AU 0 /HPF (0-6); UROBILINOGEN, URINE AUTO 0.2 mg/dL (0.0-2.0); WBC, URINE AUTO 0 /HPF (0-3)
[2023-06-18 13:36] LABS: BASO % 0.5 % (0.0-1.0); EOS # 0.1 10^3/uL (0.0-0.5); EOS % 1.1 % (0.0-3.0); HEMATOCRIT 43.8 % (42.0-52.0); HEMOGLOBIN 14.9 g/dl (13.5-17.5); LYMPH # 2.9 10^3/uL (1.5-5.0); LYMPH % 35.2 % (24.0-44.0); MEAN CORPUSCULAR HEMOGLOBIN 33.6 pg (27.0-33.0); MEAN CORPUSCULAR VOLUME 98.6 fl (80.0-96.0); MONO # 0.6 10^3/uL (0.0-0.8); MONO % 6.8 % (2.0-8.0); NEUTROPHILS # 4.6 10^3/uL (1.5-8.5); NEUTROPHILS % 55.8 % (36.0-66.0); PLATELET COUNT, AUTOMATED 228 10^3/uL (150-450); RED BLOOD COUNT 4.44 10^6/uL (4.30-6.10); WHITE BLOOD COUNT 8.2 10^3/uL (4.0-10.0)
[2023-06-18 14:09] LABS: CREATININE,RANDOM URINE 19.6 MG/DL
[2023-06-18 14:11] LABS: TOTAL PROTEIN,RANDOM URINE < 6.0 MG/DL (0.0-14.0)
[2023-06-18 14:12] LABS: ALBUMIN 3.7 G/DL (3.2-5.2); BILIRUBIN,TOTAL 0.5 MG/DL (0.3-1.2); CREATININE FOR GFR 1.91 MG/DL (0.70-1.30); GLOMERULAR FILTRATION RATE 37.7 (>49); MAGNESIUM LEVEL 2.2 MG/DL (1.8-2.4); POTASSIUM SERUM 4.1 MMOL/L (3.5-5.1); TOTAL PROTEIN 6.4 G/DL (5.7-8.2)
[2023-06-19 15:09] LABS: CMV QUANT DNA PCR (PLASMA) Positive < 200 IU/mL (Negative)
== END ==
LOC: M PLALAB 11:15
PROVIDERS: ATTEND Internal Medicine Nephrology
DX: Z94.0 Kidney transplant status (principal)

== ENCOUNTER 2023-06-21 12:20 | Outpatient (CLI) | payer MEDICARE, MEDICAID ==
[~2023-06-21] VITALS: Ht 175.3 cm; Wt 79.0 kg
[2023-06-21 12:37] VITALS: BP 168/89; O2SAT 97
[2023-06-21] MEDS ORDERED: BELATACEPT IV ONE (13:00)
[2023-06-21] MEDS ORDERED: NS IV ONE (13:00)
[2023-06-21 14:00] VITALS: BP 137/64; O2SAT 97
== END 2023-06-21 14:00 ==
LOC: M INFU 12:20
PROVIDERS: ATTEND Internal Medicine Nephrology
DX: Z94.0 Kidney transplant status (principal)
CPT/HCPCS: 96365; J0485

== ENCOUNTER → 2023-07-03 | Outpatient (CLI) | payer MEDICAID, MEDICARE ==
[~2023-07-03] MED LIST changes: -OXYB5TAB10 PO; +OXYB5TAB11 PO
[2023-07-03 10:07] LABS: APPEARANCE, URINE CLEAR (CLEAR); BACTERIA, URINE AUTO NEGATIVE (NEGATIVE); BILIRUBIN, URINE AUTO NEGATIVE (NEGATIVE); BLOOD, URINE BLOOD NEGATIVE (NEGATIVE); COLOR, URINE YELLOW (YELLOW); GLUCOSE, URINE (UA) AUTO NEGATIVE (NEGATIVE); KETONE, URINE AUTO NEGATIVE (NEGATIVE); LEUKOCYTE ESTERASE, URINE AUTO NEGATIVE (NEGATIVE); NITRITE, URINE AUTO NEGATIVE (NEGATIVE); PROTEIN, URINE AUTO 1+ mg/dL (NEGATIVE); RBC, URINE AUTO 0 /HPF (0-3); SPECIFIC GRAVITY URINE AUTO 1.014 (1.002-1.035); SQUAMOUS EPITHELIAL CELL UR AU 1 /HPF (0-6); UROBILINOGEN, URINE AUTO 0.2 mg/dL (0.0-2.0); WBC, URINE AUTO 1 /HPF (0-3)
[2023-07-03 10:10] LABS: BASO % 0.5 % (0.0-1.0); EOS # 0.1 10^3/uL (0.0-0.5); EOS % 0.7 % (0.0-3.0); HEMATOCRIT 45.8 % (42.0-52.0); HEMOGLOBIN 15.1 g/dl (13.5-17.5); LYMPH # 2.8 10^3/uL (1.5-5.0); LYMPH % 36.3 % (24.0-44.0); MONO # 0.6 10^3/uL (0.0-0.8); MONO % 7.8 % (2.0-8.0); NEUTROPHILS # 4.2 10^3/uL (1.5-8.5); PLATELET COUNT, AUTOMATED 236 10^3/uL (150-450); RED BLOOD COUNT 4.58 10^6/uL (4.30-6.10); WHITE BLOOD COUNT 7.7 10^3/uL (4.0-10.0)
[2023-07-03 10:30] LABS: TOTAL PROTEIN,RANDOM URINE 40.8 MG/DL (0.0-14.0)
[2023-07-03 10:36] LABS: ALBUMIN 3.7 G/DL (3.2-5.2); BILIRUBIN,TOTAL 0.6 MG/DL (0.3-1.2); CALCIUM LEVEL 9.1 MG/DL (8.3-10.6); CREATININE FOR GFR 1.99 MG/DL (0.70-1.30); MAGNESIUM LEVEL 1.9 MG/DL (1.8-2.4); PHOSPHORUS LEVEL 4.3 MG/DL (2.4-5.1); POTASSIUM SERUM 4.5 MMOL/L (3.5-5.1); TOTAL PROTEIN 6.5 G/DL (5.7-8.2)
[2023-07-04 14:08] LABS: CMV QUANT DNA PCR (PLASMA) Negative (Negative)
== END ==
LOC: M PLALAB 07:11
PROVIDERS: ATTEND Internal Medicine Nephrology
DX: Z94.0 Kidney transplant status (principal); N18.5 Chronic kidney disease, stage 5; D84.9 Immunodeficiency, unspecified; Z79.899 Other long term (current) drug therapy

== ENCOUNTER → 2023-07-16 | Outpatient (CLI) | payer MEDICARE, MEDICAID ==
[2023-07-16 10:24] LABS: APPEARANCE, URINE CLEAR (CLEAR); BACTERIA, URINE AUTO NEGATIVE (NEGATIVE); BASO # 0.1 10^3/uL (0.0-0.2); BASO % 0.7 % (0.0-1.0); BILIRUBIN, URINE AUTO NEGATIVE (NEGATIVE); BLOOD, URINE BLOOD NEGATIVE (NEGATIVE); COLOR, URINE YELLOW (YELLOW); EOS % 0.5 % (0.0-3.0); GLUCOSE, URINE (UA) AUTO NEGATIVE (NEGATIVE); HEMATOCRIT 45.9 % (42.0-52.0); HEMOGLOBIN 14.8 g/dl (13.5-17.5); KETONE, URINE AUTO NEGATIVE (NEGATIVE); LEUKOCYTE ESTERASE, URINE AUTO NEGATIVE (NEGATIVE); LYMPH # 1.5 10^3/uL (1.5-5.0); MEAN CORPUSCULAR HEMOGLOBIN 32.6 pg (27.0-33.0); MEAN CORPUSCULAR HGB CONC 32.2 g/dl (32.0-36.5); MEAN CORPUSCULAR VOLUME 101.1 fl (80.0-96.0); MONO # 0.3 10^3/uL (0.0-0.8); MONO % 4.1 % (2.0-8.0); MUCUS, URINE SMALL (NEGATIVE); NEUTROPHILS # 6.1 10^3/uL (1.5-8.5); NEUTROPHILS % 75.3 % (36.0-66.0); NITRITE, URINE AUTO NEGATIVE (NEGATIVE); PLATELET COUNT, AUTOMATED 238 10^3/uL (150-450); PROTEIN, URINE AUTO 1+ mg/dL (NEGATIVE); RBC, URINE AUTO 1 /HPF (0-3); RED BLOOD COUNT 4.54 10^6/uL (4.30-6.10); SPECIFIC GRAVITY URINE AUTO 1.015 (1.002-1.035); SQUAMOUS EPITHELIAL CELL UR AU 1 /HPF (0-6); WBC, URINE AUTO 2 /HPF (0-3); WHITE BLOOD COUNT 8.1 10^3/uL (4.0-10.0)
[2023-07-16 10:33] LABS: ALBUMIN 3.7 G/DL (3.2-5.2); BILIRUBIN,TOTAL 0.5 MG/DL (0.3-1.2); CALCIUM LEVEL 9.4 MG/DL (8.3-10.6); CREATININE FOR GFR 1.99 MG/DL (0.70-1.30); PHOSPHORUS LEVEL 2.8 MG/DL (2.4-5.1); POTASSIUM SERUM 5.1 MMOL/L (3.5-5.1); TOTAL PROTEIN 6.4 G/DL (5.7-8.2)
[2023-07-16 10:54] LABS: TOTAL PROTEIN,RANDOM URINE 38.9 MG/DL (0.0-14.0)
[2023-07-17 13:07] LABS: CMV QUANT DNA PCR (PLASMA) Positive < 200 IU/mL (Negative)
== END ==
LOC: M PLALAB 07:00
PROVIDERS: ATTEND Internal Medicine Nephrology
DX: Z94.0 Kidney transplant status (principal); N18.5 Chronic kidney disease, stage 5; Z79.899 Other long term (current) drug therapy

== ENCOUNTER 2023-07-19 12:25 | Outpatient (CLI) | payer MEDICARE, MEDICAID ==
[~2023-07-19] VITALS: Ht 175.3 cm; Wt 80.5 kg
[2023-07-19] MEDS ORDERED: BELATACEPT IV ONE (12:30)
[2023-07-19] MEDS ORDERED: NS IV ONE (12:30)
[2023-07-19 12:53] VITALS: BP 167/79; O2SAT 95
[2023-07-19 13:29] VITALS: BP 173/92; O2SAT 94
== END 2023-07-19 13:30 | disposition home or self-care (01) ==
LOC: M INFU 12:25
PROVIDERS: ATTEND Internal Medicine Nephrology
DX: Z94.0 Kidney transplant status (principal)
CPT/HCPCS: 96365; J0485

== ENCOUNTER → 2023-07-30 | Outpatient (CLI) | payer MEDICARE, MEDICAID ==
[~2023-07-30] MED LIST changes: +AMLO1TAB25 PO; +CLON-412 PO; +FERR1TAB8 PO; +METO50TA7 PO; +MYCO1TAB PO; +PANT40TA29 PO; +PRED5PAK2 PO; +SODI325T9 PO; +VITA100093 PO; +[UNRECOGNIZED DRUG - OTHER] IV
[2023-07-30 10:51] LABS: APPEARANCE, URINE CLEAR (CLEAR); BACTERIA, URINE AUTO NEGATIVE (NEGATIVE); BILIRUBIN, URINE AUTO NEGATIVE (NEGATIVE); BLOOD, URINE BLOOD NEGATIVE (NEGATIVE); COLOR, URINE YELLOW (YELLOW); GLUCOSE, URINE (UA) AUTO NEGATIVE (NEGATIVE); KETONE, URINE AUTO NEGATIVE (NEGATIVE); LEUKOCYTE ESTERASE, URINE AUTO NEGATIVE (NEGATIVE); NITRITE, URINE AUTO NEGATIVE (NEGATIVE); PROTEIN, URINE AUTO NEGATIVE (NEGATIVE); RBC, URINE AUTO 0 /HPF (0-3); SPECIFIC GRAVITY URINE AUTO 1.009 (1.002-1.035); SQUAMOUS EPITHELIAL CELL UR AU 1 /HPF (0-6); UROBILINOGEN, URINE AUTO 0.2 mg/dL (0.0-2.0); WBC, URINE AUTO 0 /HPF (0-3)
[2023-07-30 11:01] LABS: BASO # 0.1 10^3/uL (0.0-0.2); BASO % 0.5 % (0.0-1.0); EOS % 0.4 % (0.0-3.0); HEMATOCRIT 48.4 % (42.0-52.0); HEMOGLOBIN 15.9 g/dl (13.5-17.5); LYMPH # 3.1 10^3/uL (1.5-5.0); LYMPH % 30.2 % (24.0-44.0); MEAN CORPUSCULAR HEMOGLOBIN 33.2 pg (27.0-33.0); MEAN CORPUSCULAR HGB CONC 32.9 g/dl (32.0-36.5); MONO # 0.7 10^3/uL (0.0-0.8); MONO % 6.7 % (2.0-8.0); NEUTROPHILS # 6.3 10^3/uL (1.5-8.5); NEUTROPHILS % 61.5 % (36.0-66.0); PLATELET COUNT, AUTOMATED 250 10^3/uL (150-450); RED BLOOD COUNT 4.79 10^6/uL (4.30-6.10); WHITE BLOOD COUNT 10.2 10^3/uL (4.0-10.0)
[2023-07-30 11:13] LABS: TOTAL PROTEIN,RANDOM URINE 24.3 MG/DL (0.0-14.0)
[2023-07-30 11:17] LABS: CREATININE,RANDOM URINE 100.6 MG/DL
[2023-07-30 11:18] LABS: ALBUMIN 3.8 G/DL (3.2-5.2); BILIRUBIN,TOTAL 0.5 MG/DL (0.3-1.2); CALCIUM LEVEL 9.4 MG/DL (8.3-10.6); CREATININE FOR GFR 1.98 MG/DL (0.70-1.30); GLOMERULAR FILTRATION RATE 36.2 (>49); MAGNESIUM LEVEL 1.8 MG/DL (1.8-2.4); PHOSPHORUS LEVEL 3.7 MG/DL (2.4-5.1); POTASSIUM SERUM 5.1 MMOL/L (3.5-5.1); TOTAL PROTEIN 6.8 G/DL (5.7-8.2)
[2023-07-31 21:08] LABS: CMV QUANT DNA PCR (PLASMA) Negative (Negative)
== END ==
LOC: M PLALAB 08:33
PROVIDERS: ATTEND Internal Medicine Nephrology
DX: Z94.0 Kidney transplant status (principal); Z79.899 Other long term (current) drug therapy; D84.9 Immunodeficiency, unspecified; N18.5 Chronic kidney disease, stage 5

== ENCOUNTER 2023-08-06 07:51 | Day surgery (SDC) | payer MEDICARE, MEDICAID ==
[~2023-08-06] VITALS: Ht 167.6 cm; Wt 78.1 kg
[~2023-08-06 07:51] MED LIST changes: +NS 1,000 ML IV ONE
[2023-08-06 09:40] VITALS: TEMP 97.5
[2023-08-06 10:00] VITALS: BP 138/81; O2SAT 97
== END 2023-08-06 10:02 | disposition home or self-care (01) ==
LOC: M OPP 07:51
PROVIDERS: ATTEND Internal Medicine Gastroenterology
DX: Z86.010 Personal history of colon polyps (principal); D12.8 Benign neoplasm of rectum; K64.8 Other hemorrhoids; K57.30 Diverticulosis of large intestine without perforation or abscess without bleeding; I11.0 Hypertensive heart disease with heart failure; I50.9 Heart failure, unspecified; N18.9 Chronic kidney disease, unspecified; E78.5 Hyperlipidemia, unspecified; M19.90 Unspecified osteoarthritis, unspecified site; Z91.09 Other allergy status, other than to drugs and biological substances; Z79.899 Other long term (current) drug therapy; Z80.8 Family history of malignant neoplasm of other organs or systems; Z85.46 Personal history of malignant neoplasm of prostate

== ENCOUNTER → 2023-08-13 | Outpatient (CLI) | payer MEDICARE, MEDICAID ==
[~2023-08-13] MED LIST changes: -NS 1,000 ML IV ONE
[2023-08-13 11:18] LABS: APPEARANCE, URINE CLEAR (CLEAR); BACTERIA, URINE AUTO NEGATIVE (NEGATIVE); BILIRUBIN, URINE AUTO NEGATIVE (NEGATIVE); BLOOD, URINE BLOOD NEGATIVE (NEGATIVE); COLOR, URINE YELLOW (YELLOW); GLUCOSE, URINE (UA) AUTO NEGATIVE (NEGATIVE); KETONE, URINE AUTO NEGATIVE (NEGATIVE); LEUKOCYTE ESTERASE, URINE AUTO NEGATIVE (NEGATIVE); NITRITE, URINE AUTO NEGATIVE (NEGATIVE); PROTEIN, URINE AUTO 1+ mg/dL (NEGATIVE); RBC, URINE AUTO 0 /HPF (0-3); SPECIFIC GRAVITY URINE AUTO 1.013 (1.002-1.035); SQUAMOUS EPITHELIAL CELL UR AU 1 /HPF (0-6); UROBILINOGEN, URINE AUTO 0.2 mg/dL (0.0-2.0); WBC, URINE AUTO 1 /HPF (0-3)
[2023-08-13 11:23] LABS: BASO # 0.1 10^3/uL (0.0-0.2); BASO % 0.7 % (0.0-1.0); EOS # 0.1 10^3/uL (0.0-0.5); EOS % 0.6 % (0.0-3.0); HEMATOCRIT 47.4 % (42.0-52.0); HEMOGLOBIN 15.6 g/dl (13.5-17.5); LYMPH # 1.9 10^3/uL (1.5-5.0); LYMPH % 23.6 % (24.0-44.0); MEAN CORPUSCULAR HEMOGLOBIN 32.8 pg (27.0-33.0); MEAN CORPUSCULAR HGB CONC 32.9 g/dl (32.0-36.5); MEAN CORPUSCULAR VOLUME 99.8 fl (80.0-96.0); MONO # 0.4 10^3/uL (0.0-0.8); MONO % 4.9 % (2.0-8.0); NEUTROPHILS # 5.6 10^3/uL (1.5-8.5); NEUTROPHILS % 69.6 % (36.0-66.0); PLATELET COUNT, AUTOMATED 248 10^3/uL (150-450); RED BLOOD COUNT 4.75 10^6/uL (4.30-6.10); WHITE BLOOD COUNT 8.1 10^3/uL (4.0-10.0)
[2023-08-13 11:25] LABS: ALBUMIN 3.7 G/DL (3.2-5.2); BILIRUBIN,TOTAL 0.5 MG/DL (0.3-1.2); CALCIUM LEVEL 9.3 MG/DL (8.3-10.6); CREATININE FOR GFR 2.05 MG/DL (0.70-1.30); GLOMERULAR FILTRATION RATE 34.8 (>49); MAGNESIUM LEVEL 1.9 MG/DL (1.8-2.4); PHOSPHORUS LEVEL 3.4 MG/DL (2.4-5.1); POTASSIUM SERUM 4.8 MMOL/L (3.5-5.1); TOTAL PROTEIN 6.5 G/DL (5.7-8.2)
[2023-08-13 11:41] LABS: TOTAL PROTEIN,RANDOM URINE 30.1 MG/DL (0.0-14.0)
[2023-08-14 20:10] LABS: CMV QUANT DNA PCR (PLASMA) Positive < 200 IU/mL (Negative)
== END ==
LOC: M PLALAB 07:23
PROVIDERS: ATTEND Internal Medicine Nephrology
DX: Z94.0 Kidney transplant status (principal); N18.5 Chronic kidney disease, stage 5; D84.9 Immunodeficiency, unspecified; Z79.899 Other long term (current) drug therapy

== ENCOUNTER 2023-08-16 12:30 | Outpatient (CLI) | payer MEDICARE, MEDICAID ==
[~2023-08-16] VITALS: Ht 167.6 cm; Wt 79.1 kg
[2023-08-16 12:30] VITALS: BP 139/77; O2SAT 96
[~2023-08-16 12:30] MED LIST changes: +BELATACEPT IV ONE; +NS IV ONE
[2023-08-16 13:58] VITALS: BP 131/80; O2SAT 95
== END 2023-08-16 14:00 | disposition home or self-care (01) ==
LOC: M INFU 12:30
PROVIDERS: ATTEND Internal Medicine Nephrology
DX: Z94.0 Kidney transplant status (principal)
CPT/HCPCS: 96365; J0485

== ENCOUNTER → 2023-08-28 | Outpatient (CLI) | payer MEDICARE, MEDICAID ==
[~2023-08-28] MED LIST changes: -BELATACEPT IV ONE; -NS IV ONE
[2023-08-28 13:24] LABS: APPEARANCE, URINE CLEAR (CLEAR); BACTERIA, URINE AUTO NEGATIVE (NEGATIVE); BILIRUBIN, URINE AUTO NEGATIVE (NEGATIVE); BLOOD, URINE BLOOD NEGATIVE (NEGATIVE); COLOR, URINE YELLOW (YELLOW); GLUCOSE, URINE (UA) AUTO NEGATIVE (NEGATIVE); KETONE, URINE AUTO NEGATIVE (NEGATIVE); LEUKOCYTE ESTERASE, URINE AUTO NEGATIVE (NEGATIVE); NITRITE, URINE AUTO NEGATIVE (NEGATIVE); PROTEIN, URINE AUTO NEGATIVE (NEGATIVE); RBC, URINE AUTO 0 /HPF (0-3); SPECIFIC GRAVITY URINE AUTO 1.014 (1.002-1.035); SQUAMOUS EPITHELIAL CELL UR AU 1 /HPF (0-6); UROBILINOGEN, URINE AUTO 0.2 mg/dL (0.0-2.0); WBC, URINE AUTO 2 /HPF (0-3)
[2023-08-28 13:52] LABS: TOTAL PROTEIN,RANDOM URINE 25.6 MG/DL (0.0-14.0)
[2023-08-28 13:57] LABS: CREATININE,RANDOM URINE 108.9 MG/DL
[2023-08-28 14:15] LABS: ALBUMIN 3.6 G/DL (3.2-5.2); BASO # 0.1 10^3/uL (0.0-0.2); BASO % 0.8 % (0.0-1.0); BILIRUBIN,TOTAL 0.4 MG/DL (0.3-1.2); CALCIUM LEVEL 9.6 MG/DL (8.3-10.6); CREATININE FOR GFR 1.92 MG/DL (0.70-1.30); EOS # 0.1 10^3/uL (0.0-0.5); EOS % 1.3 % (0.0-3.0); GLOMERULAR FILTRATION RATE 37.4 (>49); HEMATOCRIT 46.1 % (42.0-52.0); HEMOGLOBIN 15.2 g/dl (13.5-17.5); LYMPH # 3.1 10^3/uL (1.5-5.0); LYMPH % 36.7 % (24.0-44.0); MAGNESIUM LEVEL 1.9 MG/DL (1.8-2.4); MONO # 0.6 10^3/uL (0.0-0.8); MONO % 7.1 % (2.0-8.0); NEUTROPHILS # 4.5 10^3/uL (1.5-8.5); NEUTROPHILS % 53.5 % (36.0-66.0); PHOSPHORUS LEVEL 4.1 MG/DL (2.4-5.1); PLATELET COUNT, AUTOMATED 261 10^3/uL (150-450); POTASSIUM SERUM 4.5 MMOL/L (3.5-5.1); RED BLOOD COUNT 4.61 10^6/uL (4.30-6.10); TOTAL PROTEIN 6.2 G/DL (5.7-8.2); WHITE BLOOD COUNT 8.5 10^3/uL (4.0-10.0)
[2023-08-29 14:08] LABS: CMV QUANT DNA PCR (PLASMA) Positive < 200 IU/mL (Negative)
== END ==
LOC: M PLALAB 07:09
PROVIDERS: ATTEND Internal Medicine Nephrology
DX: Z94.0 Kidney transplant status (principal)

== ENCOUNTER 2023-09-13 12:30 | Outpatient (CLI) | payer MEDICARE, MEDICAID ==
[~2023-09-13] VITALS: Ht 167.6 cm; Wt 79.0 kg
[2023-09-13 12:30] VITALS: BP 119/77; O2SAT 98
[2023-09-13] MEDS ORDERED: NS IV ONE (13:00)
[2023-09-13] MEDS ORDERED: BELATACEPT IV ONE (13:00)
[2023-09-13 13:40] VITALS: BP 136/72; O2SAT 96
== END 2023-09-13 13:40 | disposition home or self-care (01) ==
LOC: M INFU 12:30
PROVIDERS: ATTEND Internal Medicine Nephrology
DX: Z94.0 Kidney transplant status (principal); Z91.048 Other nonmedicinal substance allergy status
CPT/HCPCS: 96365; J0485

== ENCOUNTER → 2023-09-18 | Outpatient (CLI) | payer MEDICARE, MEDICAID ==
[2023-09-18 10:38] LABS: BASO % 0.4 % (0.0-1.0); EOS # 0.1 10^3/uL (0.0-0.5); EOS % 0.8 % (0.0-3.0); HEMATOCRIT 47.1 % (42.0-52.0); HEMOGLOBIN 15.2 g/dl (13.5-17.5); LYMPH # 2.7 10^3/uL (1.5-5.0); LYMPH % 26.8 % (24.0-44.0); MEAN CORPUSCULAR HEMOGLOBIN 32.3 pg (27.0-33.0); MEAN CORPUSCULAR HGB CONC 32.3 g/dl (32.0-36.5); MEAN CORPUSCULAR VOLUME 100.2 fl (80.0-96.0); MONO # 0.7 10^3/uL (0.0-0.8); MONO % 6.8 % (2.0-8.0); NEUTROPHILS # 6.4 10^3/uL (1.5-8.5); NEUTROPHILS % 64.8 % (36.0-66.0); PLATELET COUNT, AUTOMATED 257 10^3/uL (150-450)
[2023-09-18 10:40] LABS: APPEARANCE, URINE CLEAR (CLEAR); BACTERIA, URINE AUTO NEGATIVE (NEGATIVE); BILIRUBIN, URINE AUTO NEGATIVE (NEGATIVE); BLOOD, URINE BLOOD NEGATIVE (NEGATIVE); COLOR, URINE STRAW (YELLOW); GLUCOSE, URINE (UA) AUTO NEGATIVE (NEGATIVE); KETONE, URINE AUTO NEGATIVE (NEGATIVE); LEUKOCYTE ESTERASE, URINE AUTO NEGATIVE (NEGATIVE); NITRITE, URINE AUTO NEGATIVE (NEGATIVE); PROTEIN, URINE AUTO NEGATIVE (NEGATIVE); RBC, URINE AUTO 1 /HPF (0-3); SPECIFIC GRAVITY URINE AUTO 1.004 (1.002-1.035); SQUAMOUS EPITHELIAL CELL UR AU 0 /HPF (0-6); UROBILINOGEN, URINE AUTO 0.2 mg/dL (0.0-2.0); WBC, URINE AUTO 0 /HPF (0-3)
[2023-09-18 10:56] LABS: TOTAL PROTEIN,RANDOM URINE 10.2 MG/DL (0.0-14.0)
[2023-09-18 11:01] LABS: CREATININE,RANDOM URINE 50.2 MG/DL
[2023-09-18 11:03] LABS: ALBUMIN 3.6 G/DL (3.2-5.2); BILIRUBIN,TOTAL 0.5 MG/DL (0.3-1.2); CALCIUM LEVEL 9.1 MG/DL (8.3-10.6); CREATININE FOR GFR 1.81 MG/DL (0.70-1.30); MAGNESIUM LEVEL 1.8 MG/DL (1.8-2.4); PHOSPHORUS LEVEL 3.2 MG/DL (2.4-5.1); POTASSIUM SERUM 4.2 MMOL/L (3.5-5.1); TOTAL PROTEIN 6.2 G/DL (5.7-8.2)
[2023-09-20 00:08] LABS: CMV QUANT DNA PCR (PLASMA) Positive < 200 IU/mL (Negative)
== END ==
LOC: M PLALAB 07:56
PROVIDERS: ATTEND Internal Medicine
DX: Z94.0 Kidney transplant status (principal); Z79.899 Other long term (current) drug therapy

== ENCOUNTER → 2023-10-08 | Outpatient (CLI) | payer MEDICARE, MEDICAID ==
[~2023-10-08] MED LIST changes: +HYDR-161 PO; -HYDR10TAB PO
[2023-10-08 10:01] LABS: BASO % 0.4 % (0.0-1.0); EOS # 0.1 10^3/uL (0.0-0.5); EOS % 0.8 % (0.0-3.0); HEMATOCRIT 43.9 % (42.0-52.0); HEMOGLOBIN 14.8 g/dl (13.5-17.5); LYMPH # 2.9 10^3/uL (1.5-5.0); LYMPH % 32.6 % (24.0-44.0); MEAN CORPUSCULAR HEMOGLOBIN 33.1 pg (27.0-33.0); MEAN CORPUSCULAR HGB CONC 33.7 g/dl (32.0-36.5); MEAN CORPUSCULAR VOLUME 98.2 fl (80.0-96.0); MONO # 0.6 10^3/uL (0.0-0.8); NEUTROPHILS # 5.2 10^3/uL (1.5-8.5); NEUTROPHILS % 58.8 % (36.0-66.0); PLATELET COUNT, AUTOMATED 227 10^3/uL (150-450); RED BLOOD COUNT 4.47 10^6/uL (4.30-6.10); WHITE BLOOD COUNT 8.9 10^3/uL (4.0-10.0)
[2023-10-08 10:02] LABS: APPEARANCE, URINE CLEAR (CLEAR); BACTERIA, URINE AUTO NEGATIVE (NEGATIVE); BILIRUBIN, URINE AUTO NEGATIVE (NEGATIVE); BLOOD, URINE BLOOD NEGATIVE (NEGATIVE); COLOR, URINE YELLOW (YELLOW); GLUCOSE, URINE (UA) AUTO NEGATIVE (NEGATIVE); KETONE, URINE AUTO NEGATIVE (NEGATIVE); LEUKOCYTE ESTERASE, URINE AUTO NEGATIVE (NEGATIVE); MUCUS, URINE SMALL (NEGATIVE); NITRITE, URINE AUTO NEGATIVE (NEGATIVE); PROTEIN, URINE AUTO 1+ mg/dL (NEGATIVE); RBC, URINE AUTO 0 /HPF (0-3); SPECIFIC GRAVITY URINE AUTO 1.014 (1.002-1.035); SQUAMOUS EPITHELIAL CELL UR AU 1 /HPF (0-6); UROBILINOGEN, URINE AUTO 0.2 mg/dL (0.0-2.0); WBC, URINE AUTO 2 /HPF (0-3)
[2023-10-08 10:09] LABS: ALBUMIN 3.7 G/DL (3.2-5.2); BILIRUBIN,TOTAL 0.6 MG/DL (0.3-1.2); CALCIUM LEVEL 9.8 MG/DL (8.3-10.6); CREATININE FOR GFR 2.06 MG/DL (0.70-1.30); GLOMERULAR FILTRATION RATE 34.5 (>49); MAGNESIUM LEVEL 1.7 MG/DL (1.8-2.4); PHOSPHORUS LEVEL 4.4 MG/DL (2.4-5.1); POTASSIUM SERUM 4.8 MMOL/L (3.5-5.1); TOTAL PROTEIN 6.9 G/DL (5.7-8.2)
[2023-10-08 11:39] LABS: CREATININE, URINE 130.6 MG/DL
[2023-10-08 11:40] LABS: MAU/CREAT RATIO 43.6 MCG/MG (0.0-30.0)
[2023-10-09 16:09] LABS: CMV QUANT DNA PCR (PLASMA) Positive < 200 IU/mL (Negative)
== END ==
LOC: M PLALAB 07:52
PROVIDERS: ATTEND Internal Medicine
DX: N18.5 Chronic kidney disease, stage 5 (principal); D84.9 Immunodeficiency, unspecified; Z94.0 Kidney transplant status; Z79.899 Other long term (current) drug therapy

== ENCOUNTER 2023-10-11 12:04 | Outpatient (CLI) | payer MEDICARE, MEDICAID ==
[2023-10-11 12:29] VITALS: BP 133/72; O2SAT 97
[2023-10-11] MEDS ORDERED: BELATACEPT IV ONE (12:30)
[2023-10-11] MEDS ORDERED: NS IV ONE (12:30)
[2023-10-11 13:30] VITALS: BP 132/79; O2SAT 95
== END 2023-10-11 13:35 | disposition home or self-care (01) ==
LOC: M INFU 12:04
PROVIDERS: ATTEND Internal Medicine Nephrology
DX: Z94.0 Kidney transplant status (principal)
CPT/HCPCS: 96365; J0485

== ENCOUNTER → 2023-10-22 | Outpatient (CLI) | payer MEDICARE, MEDICAID ==
[~2023-10-22] MED LIST changes: -OXYB5TAB11 PO; +OXYB5TAB14 PO
[2023-10-22 09:49] LABS: APPEARANCE, URINE CLEAR (CLEAR); BACTERIA, URINE AUTO NEGATIVE (NEGATIVE); BILIRUBIN, URINE AUTO NEGATIVE (NEGATIVE); BLOOD, URINE BLOOD NEGATIVE (NEGATIVE); COLOR, URINE YELLOW (YELLOW); GLUCOSE, URINE (UA) AUTO NEGATIVE (NEGATIVE); KETONE, URINE AUTO NEGATIVE (NEGATIVE); LEUKOCYTE ESTERASE, URINE AUTO NEGATIVE (NEGATIVE); NITRITE, URINE AUTO NEGATIVE (NEGATIVE); PROTEIN, URINE AUTO NEGATIVE (NEGATIVE); RBC, URINE AUTO 0 /HPF (0-3); SPECIFIC GRAVITY URINE AUTO 1.011 (1.002-1.035); SQUAMOUS EPITHELIAL CELL UR AU 1 /HPF (0-6); UROBILINOGEN, URINE AUTO 0.2 mg/dL (0.0-2.0); WBC, URINE AUTO 4 /HPF (0-3)
[2023-10-22 09:50] LABS: BASO % 0.5 % (0.0-1.0); EOS % 0.4 % (0.0-3.0); HEMATOCRIT 46.2 % (42.0-52.0); HEMOGLOBIN 15.2 g/dl (13.5-17.5); LYMPH # 2.7 10^3/uL (1.5-5.0); MEAN CORPUSCULAR HEMOGLOBIN 32.8 pg (27.0-33.0); MEAN CORPUSCULAR HGB CONC 32.9 g/dl (32.0-36.5); MEAN CORPUSCULAR VOLUME 99.6 fl (80.0-96.0); MONO # 0.6 10^3/uL (0.0-0.8); MONO % 7.8 % (2.0-8.0); NEUTROPHILS # 4.7 10^3/uL (1.5-8.5); NEUTROPHILS % 57.9 % (36.0-66.0); PLATELET COUNT, AUTOMATED 257 10^3/uL (150-450); RED BLOOD COUNT 4.64 10^6/uL (4.30-6.10); WHITE BLOOD COUNT 8.2 10^3/uL (4.0-10.0)
[2023-10-22 10:11] LABS: ALBUMIN 3.7 G/DL (3.2-5.2); BILIRUBIN,TOTAL 0.5 MG/DL (0.3-1.2); CALCIUM LEVEL 9.9 MG/DL (8.3-10.6); CREATININE FOR GFR 1.93 MG/DL (0.70-1.30); GLOMERULAR FILTRATION RATE 37.2 (>49); POTASSIUM SERUM 5.4 MMOL/L (3.5-5.1)
[2023-10-22 10:28] LABS: TOTAL PROTEIN,RANDOM URINE 25.5 MG/DL (0.0-14.0)
[2023-10-23 21:10] LABS: CMV QUANT DNA PCR (PLASMA) Positive < 200 IU/mL (Negative)
== END ==
LOC: M PLALAB 07:54
PROVIDERS: ATTEND Internal Medicine
DX: D84.9 Immunodeficiency, unspecified (principal); Z79.899 Other long term (current) drug therapy

== ENCOUNTER 2023-11-13 08:45 | Outpatient (CLI) | payer MEDICARE, MEDICAID ==
[~2023-11-13] VITALS: Ht 167.6 cm; Wt 80.2 kg
[2023-11-13 09:14] VITALS: BP 160/83; O2SAT 97
[2023-11-13] MEDS: BELATACEPT IV ONE (09:48)
[2023-11-13] MEDS: NS IV ONE (09:48)
[2023-11-13 10:25] VITALS: BP 112/79; O2SAT 95
== END 2023-11-13 10:25 ==
LOC: M INFU 08:45
PROVIDERS: ATTEND Nurse Practitioner Family
DX: Z94.0 Kidney transplant status (principal)
CPT/HCPCS: 96365; J0485

== ENCOUNTER → 2023-11-19 | Outpatient (REF) | payer MEDICARE, MEDICAID ==
[2023-11-19 11:35] LABS: BASO % 0.4 % (0.0-1.0); EOS % 0.4 % (0.0-3.0); HEMATOCRIT 49.9 % (42.0-52.0); HEMOGLOBIN 16.4 g/dl (13.5-17.5); LYMPH # 2.1 10^3/uL (1.5-5.0); LYMPH % 23.4 % (24.0-44.0); MEAN CORPUSCULAR HEMOGLOBIN 33.1 pg (27.0-33.0); MEAN CORPUSCULAR HGB CONC 32.9 g/dl (32.0-36.5); MEAN CORPUSCULAR VOLUME 100.6 fl (80.0-96.0); MONO # 0.4 10^3/uL (0.0-0.8); MONO % 4.4 % (2.0-8.0); NEUTROPHILS # 6.4 10^3/uL (1.5-8.5); NEUTROPHILS % 70.8 % (36.0-66.0); PLATELET COUNT, AUTOMATED 256 10^3/uL (150-450); RED BLOOD COUNT 4.96 10^6/uL (4.30-6.10)
[2023-11-19 11:36] LABS: APPEARANCE, URINE CLEAR (CLEAR); BACTERIA, URINE AUTO NEGATIVE (NEGATIVE); BILIRUBIN, URINE AUTO NEGATIVE (NEGATIVE); BLOOD, URINE BLOOD NEGATIVE (NEGATIVE); COLOR, URINE YELLOW (YELLOW); GLUCOSE, URINE (UA) AUTO NEGATIVE (NEGATIVE); KETONE, URINE AUTO NEGATIVE (NEGATIVE); LEUKOCYTE ESTERASE, URINE AUTO NEGATIVE (NEGATIVE); MUCUS, URINE SMALL (NEGATIVE); NITRITE, URINE AUTO NEGATIVE (NEGATIVE); PROTEIN, URINE AUTO 1+ mg/dL (NEGATIVE); RBC, URINE AUTO 1 /HPF (0-3); SPECIFIC GRAVITY URINE AUTO 1.015 (1.002-1.035); SQUAMOUS EPITHELIAL CELL UR AU 1 /HPF (0-6); UROBILINOGEN, URINE AUTO 0.2 mg/dL (0.0-2.0); WBC, URINE AUTO 1 /HPF (0-3)
[2023-11-19 11:40] LABS: ALBUMIN 3.9 G/DL (3.2-5.2); BILIRUBIN,TOTAL 0.8 MG/DL (0.3-1.2); CALCIUM LEVEL 9.2 MG/DL (8.3-10.6); CREATININE FOR GFR 2.09 MG/DL (0.70-1.30); GLOMERULAR FILTRATION RATE 33.9 (>49); MAGNESIUM LEVEL 1.9 MG/DL (1.8-2.4); POTASSIUM SERUM 5.4 MMOL/L (3.5-5.1); TOTAL PROTEIN 6.6 G/DL (5.7-8.2)
[2023-11-19 12:05] LABS: CREATININE,RANDOM URINE 159.8 MG/DL
[2023-11-20 15:08] LABS: CMV QUANT DNA PCR (PLASMA) Positive < 200 IU/mL (Negative)
== END ==
LOC: M LABDRWAD 09:52
PROVIDERS: ATTEND Internal Medicine
DX: N18.5 Chronic kidney disease, stage 5 (principal); Z94.0 Kidney transplant status; Z79.899 Other long term (current) drug therapy

== ENCOUNTER → 2023-11-19 | Outpatient (CLI) | payer MEDICARE, MEDICAID | LOC: M PLAIMG 07:30 | PROVIDERS: ATTEND Student in an Organized Health Care Education/Training Program | DX: I44.0 Atrioventricular block, first degree (principal); I44.7 Left bundle-branch block, unspecified; I50.22 Chronic systolic (congestive) heart failure; N18.5 Chronic kidney disease, stage 5; Z94.0 Kidney transplant status; Z79.899 Other long term (current) drug therapy ==

== ENCOUNTER 2023-12-11 10:00 | Outpatient (CLI) | payer MEDICARE, MEDICAID ==
[~2023-12-11] VITALS: Ht 167.6 cm; Wt 79.5 kg
[2023-12-11 10:00] VITALS: BP 146/86; O2SAT 97
[2023-12-11] MEDS: NS IV ONE (11:03)
[2023-12-11] MEDS: BELATACEPT IV ONE (11:03)
[2023-12-11 11:45] VITALS: BP 146/90; O2SAT 98
== END 2023-12-11 11:45 ==
LOC: M INFU 10:00
PROVIDERS: ATTEND Nurse Practitioner Family
DX: Z94.0 Kidney transplant status (principal)
CPT/HCPCS: 96365; J0485

== ENCOUNTER → 2023-12-25 | Outpatient (CLI) | payer MEDICARE, MEDICAID ==
[2023-12-25 10:33] LABS: BASO # 0.1 10^3/uL (0.0-0.2); BASO % 0.6 % (0.0-1.0); EOS # 0.1 10^3/uL (0.0-0.5); EOS % 0.9 % (0.0-3.0); HEMATOCRIT 46.3 % (42.0-52.0); HEMOGLOBIN 15.3 g/dl (13.5-17.5); LYMPH # 2.6 10^3/uL (1.5-5.0); LYMPH % 32.7 % (24.0-44.0); MONO # 0.6 10^3/uL (0.0-0.8); MONO % 7.4 % (2.0-8.0); NEUTROPHILS # 4.6 10^3/uL (1.5-8.5); NEUTROPHILS % 57.8 % (36.0-66.0); PLATELET COUNT, AUTOMATED 248 10^3/uL (150-450); RED BLOOD COUNT 4.63 10^6/uL (4.30-6.10); WHITE BLOOD COUNT 7.9 10^3/uL (4.0-10.0)
[2023-12-25 10:40] LABS: ALBUMIN 3.8 G/DL (3.2-5.2); BILIRUBIN,TOTAL 0.7 MG/DL (0.3-1.2); CALCIUM LEVEL 10.2 MG/DL (8.3-10.6); CREATININE FOR GFR 2.06 MG/DL (0.70-1.30); GLOMERULAR FILTRATION RATE 34.5 (>49); MAGNESIUM LEVEL 1.9 MG/DL (1.8-2.4); PHOSPHORUS LEVEL 4.1 MG/DL (2.4-5.1); POTASSIUM SERUM 5.4 MMOL/L (3.5-5.1); TOTAL PROTEIN 6.5 G/DL (5.7-8.2)
[2023-12-25 10:41] LABS: APPEARANCE, URINE CLEAR (CLEAR); BACTERIA, URINE AUTO NEGATIVE (NEGATIVE); BILIRUBIN, URINE AUTO NEGATIVE (NEGATIVE); BLOOD, URINE BLOOD NEGATIVE (NEGATIVE); COLOR, URINE STRAW (YELLOW); GLUCOSE, URINE (UA) AUTO NEGATIVE (NEGATIVE); KETONE, URINE AUTO NEGATIVE (NEGATIVE); LEUKOCYTE ESTERASE, URINE AUTO NEGATIVE (NEGATIVE); MUCUS, URINE SMALL (NEGATIVE); NITRITE, URINE AUTO NEGATIVE (NEGATIVE); PROTEIN, URINE AUTO NEGATIVE (NEGATIVE); RBC, URINE AUTO 0 /HPF (0-3); SPECIFIC GRAVITY URINE AUTO 1.008 (1.002-1.035); SQUAMOUS EPITHELIAL CELL UR AU 2 /HPF (0-6); UROBILINOGEN, URINE AUTO 0.2 mg/dL (0.0-2.0); WBC, URINE AUTO 1 /HPF (0-3)
[2023-12-25 11:33] LABS: TOTAL PROTEIN,RANDOM URINE 14.5 MG/DL (0.0-14.0)
[2023-12-25 11:38] LABS: CREATININE,RANDOM URINE 56.8 MG/DL
[2023-12-26 14:09] LABS: CMV QUANT DNA PCR (PLASMA) Negative (Negative)
== END ==
LOC: M PLALAB 08:05
PROVIDERS: ATTEND Internal Medicine
DX: Z79.899 Other long term (current) drug therapy (principal); Z94.0 Kidney transplant status; N18.5 Chronic kidney disease, stage 5; D84.9 Immunodeficiency, unspecified

== ENCOUNTER 2024-01-08 09:20 | Outpatient (CLI) | payer MEDICARE, MEDICAID ==
[~2024-01-08] VITALS: Ht 167.6 cm; Wt 79.5 kg
[2024-01-08 09:20] VITALS: BP 160/87; O2SAT 98
[2024-01-08] MEDS: NS IV ONE (10:00)
[2024-01-08] MEDS: BELATACEPT IV ONE (10:00)
[2024-01-08 10:30] VITALS: BP 170/84; O2SAT 98
== END 2024-01-08 10:40 ==
LOC: M INFU 09:20
PROVIDERS: ATTEND Nurse Practitioner Family
DX: Z94.0 Kidney transplant status (principal)
CPT/HCPCS: 96365; J0485

== ENCOUNTER → 2024-01-21 | Outpatient (CLI) | payer MEDICARE, MEDICAID ==
[2024-01-21 10:27] LABS: BASO % 0.5 % (0.0-1.0); EOS # 0.1 10^3/uL (0.0-0.5); EOS % 1.1 % (0.0-3.0); HEMATOCRIT 47.4 % (42.0-52.0); HEMOGLOBIN 15.8 g/dl (13.5-17.5); LYMPH # 2.1 10^3/uL (1.5-5.0); MEAN CORPUSCULAR HEMOGLOBIN 32.6 pg (27.0-33.0); MEAN CORPUSCULAR HGB CONC 33.3 g/dl (32.0-36.5); MEAN CORPUSCULAR VOLUME 97.9 fl (80.0-96.0); MONO # 0.5 10^3/uL (0.0-0.8); MONO % 5.8 % (2.0-8.0); NEUTROPHILS # 5.3 10^3/uL (1.5-8.5); NEUTROPHILS % 66.2 % (36.0-66.0); PLATELET COUNT, AUTOMATED 222 10^3/uL (150-450); RED BLOOD COUNT 4.84 10^6/uL (4.30-6.10); WHITE BLOOD COUNT 7.9 10^3/uL (4.0-10.0)
[2024-01-21 10:32] LABS: APPEARANCE, URINE CLEAR (CLEAR); BACTERIA, URINE AUTO NEGATIVE (NEGATIVE); BILIRUBIN, URINE AUTO NEGATIVE (NEGATIVE); BLOOD, URINE BLOOD NEGATIVE (NEGATIVE); COLOR, URINE YELLOW (YELLOW); GLUCOSE, URINE (UA) AUTO NEGATIVE (NEGATIVE); KETONE, URINE AUTO NEGATIVE (NEGATIVE); LEUKOCYTE ESTERASE, URINE AUTO NEGATIVE (NEGATIVE); NITRITE, URINE AUTO NEGATIVE (NEGATIVE); PROTEIN, URINE AUTO 1+ mg/dL (NEGATIVE); RBC, URINE AUTO 4 /HPF (0-3); SQUAMOUS EPITHELIAL CELL UR AU 1 /HPF (0-6); UROBILINOGEN, URINE AUTO 0.2 mg/dL (0.0-2.0); WBC, URINE AUTO 0 /HPF (0-3)
[2024-01-21 10:50] LABS: TOTAL PROTEIN,RANDOM URINE 44.4 MG/DL (0.0-14.0)
[2024-01-21 10:55] LABS: CREATININE,RANDOM URINE 112.8 MG/DL
[2024-01-21 10:57] LABS: ALBUMIN 3.7 G/DL (3.2-5.2); BILIRUBIN,TOTAL 0.5 MG/DL (0.3-1.2); CALCIUM LEVEL 9.5 MG/DL (8.3-10.6); CREATININE FOR GFR 1.96 MG/DL (0.70-1.30); GLOMERULAR FILTRATION RATE 36.5 (>49); MAGNESIUM LEVEL 1.7 MG/DL (1.8-2.4); PHOSPHORUS LEVEL 3.3 MG/DL (2.4-5.1); POTASSIUM SERUM 5.1 MMOL/L (3.5-5.1); TOTAL PROTEIN 6.4 G/DL (5.7-8.2)
[2024-01-22 15:08] LABS: CMV QUANT DNA PCR (PLASMA) Negative (Negative)
== END ==
LOC: M PLALAB 07:24
PROVIDERS: ATTEND Internal Medicine
DX: Z94.0 Kidney transplant status (principal); E78.2 Mixed hyperlipidemia; Z79.899 Other long term (current) drug therapy

== ENCOUNTER → 2024-01-21 | Outpatient (CLI) | payer MEDICARE, MEDICAID ==
[2024-01-21 10:58] LABS: CHOLESTEROL RISK RATIO 2.51 (<5); HDL CHOLESTEROL 47.7 MG/DL (>40); LDL CHOLESTEROL 48.5 MG/DL (<100); NON-HDL-C 72.3 MG/DL
== END ==
LOC: M PLALAB 07:27
PROVIDERS: ATTEND Physician Assistant
DX: E78.2 Mixed hyperlipidemia (principal)

== ENCOUNTER 2024-02-05 09:38 | Outpatient (CLI) | payer MEDICARE, MEDICAID ==
[~2024-02-05] VITALS: Ht 167.6 cm; Wt 80.0 kg
[2024-02-05 09:25] VITALS: BP 114/74; O2SAT 96
[2024-02-05] MEDS: BELATACEPT IV ONE (10:00)
[2024-02-05] MEDS: NS IV ONE (10:00)
[2024-02-05 10:30] VITALS: BP 125/74; O2SAT 97
== END 2024-02-05 10:35 | disposition home or self-care (01) ==
LOC: M INFU 09:38
PROVIDERS: ATTEND Nurse Practitioner Family
DX: Z94.0 Kidney transplant status (principal)
CPT/HCPCS: 96365; J0485

== ENCOUNTER → 2024-02-19 | Outpatient (CLI) | payer MEDICARE, MEDICAID ==
[2024-02-19 10:21] LABS: BASO % 0.4 % (0.0-1.0); EOS # 0.1 10^3/uL (0.0-0.5); EOS % 0.9 % (0.0-3.0); HEMATOCRIT 47.4 % (42.0-52.0); HEMOGLOBIN 15.7 g/dl (13.5-17.5); LYMPH # 2.8 10^3/uL (1.5-5.0); LYMPH % 31.2 % (24.0-44.0); MEAN CORPUSCULAR HEMOGLOBIN 33.1 pg (27.0-33.0); MEAN CORPUSCULAR HGB CONC 33.1 g/dl (32.0-36.5); MONO # 0.6 10^3/uL (0.0-0.8); NEUTROPHILS # 5.3 10^3/uL (1.5-8.5); NEUTROPHILS % 59.9 % (36.0-66.0); PLATELET COUNT, AUTOMATED 228 10^3/uL (150-450); RED BLOOD COUNT 4.74 10^6/uL (4.30-6.10); WHITE BLOOD COUNT 8.9 10^3/uL (4.0-10.0)
[2024-02-19 10:37] LABS: APPEARANCE, URINE CLEAR (CLEAR); BACTERIA, URINE AUTO NEGATIVE (NEGATIVE); BILIRUBIN, URINE AUTO NEGATIVE (NEGATIVE); BLOOD, URINE BLOOD NEGATIVE (NEGATIVE); COLOR, URINE YELLOW (YELLOW); GLUCOSE, URINE (UA) AUTO NEGATIVE (NEGATIVE); KETONE, URINE AUTO NEGATIVE (NEGATIVE); LEUKOCYTE ESTERASE, URINE AUTO TRACE (NEGATIVE); NITRITE, URINE AUTO NEGATIVE (NEGATIVE); PROTEIN, URINE AUTO 1+ mg/dL (NEGATIVE); RBC, URINE AUTO 3 /HPF (0-3); SPECIFIC GRAVITY URINE AUTO 1.013 (1.002-1.035); SQUAMOUS EPITHELIAL CELL UR AU 1 /HPF (0-6); WBC, URINE AUTO 5 /HPF (0-3)
[2024-02-19 10:48] LABS: CREATININE,RANDOM URINE 117.7 MG/DL
[2024-02-19 10:49] LABS: ALBUMIN 3.7 G/DL (3.2-5.2); BILIRUBIN,DIRECT 0.3 MG/DL (<0.4); BILIRUBIN,TOTAL 0.8 MG/DL (0.3-1.2); CALCIUM LEVEL 9.9 MG/DL (8.3-10.6); CREATININE FOR GFR 2.04 MG/DL (0.70-1.30); GLOMERULAR FILTRATION RATE 34.8 (>49); MAGNESIUM LEVEL 1.8 MG/DL (1.8-2.4); PHOSPHORUS LEVEL 3.9 MG/DL (2.4-5.1); POTASSIUM SERUM 5.1 MMOL/L (3.5-5.1); TOTAL PROTEIN 6.6 G/DL (5.7-8.2)
[2024-02-21 16:10] LABS: CMV QUANT DNA PCR (PLASMA) Negative (Negative)
== END ==
LOC: M PLALAB 07:54
PROVIDERS: ATTEND Internal Medicine Nephrology
DX: Z94.0 Kidney transplant status (principal)

== ENCOUNTER 2024-03-04 09:30 | Outpatient (CLI) | payer MEDICARE, MEDICAID ==
[~2024-03-04] VITALS: Ht 167.6 cm; Wt 80.5 kg
[2024-03-04 09:25] VITALS: BP 112/70; O2SAT 97
[2024-03-04] MEDS: BELATACEPT IV ONE (10:13)
[2024-03-04] MEDS: NS IV ONE (10:13)
[2024-03-04 10:50] VITALS: BP 112/71; O2SAT 97
== END 2024-03-04 10:50 ==
LOC: M INFU 09:30
PROVIDERS: ATTEND Nurse Practitioner Family
DX: Z94.0 Kidney transplant status (principal); Z91.048 Other nonmedicinal substance allergy status
CPT/HCPCS: 96365; J0485

== ENCOUNTER → 2024-03-18 | Outpatient (CLI) | payer MEDICARE, MEDICAID ==
[2024-03-18 10:30] LABS: BASO % 0.6 % (0.0-1.0); EOS # 0.1 10^3/uL (0.0-0.5); EOS % 0.8 % (0.0-3.0); HEMATOCRIT 45.3 % (42.0-52.0); HEMOGLOBIN 15.4 g/dl (13.5-17.5); LYMPH # 2.1 10^3/uL (1.5-5.0); LYMPH % 28.5 % (24.0-44.0); MEAN CORPUSCULAR HEMOGLOBIN 33.1 pg (27.0-33.0); MEAN CORPUSCULAR VOLUME 97.4 fl (80.0-96.0); MONO # 0.5 10^3/uL (0.0-0.8); MONO % 7.2 % (2.0-8.0); NEUTROPHILS # 4.5 10^3/uL (1.5-8.5); NEUTROPHILS % 62.3 % (36.0-66.0); PLATELET COUNT, AUTOMATED 247 10^3/uL (150-450); RED BLOOD COUNT 4.65 10^6/uL (4.30-6.10); WHITE BLOOD COUNT 7.3 10^3/uL (4.0-10.0)
[2024-03-18 10:38] LABS: ALBUMIN 3.8 G/DL (3.2-5.2); APPEARANCE, URINE CLEAR (CLEAR); BACTERIA, URINE AUTO NEGATIVE (NEGATIVE); BILIRUBIN, URINE AUTO NEGATIVE (NEGATIVE); BILIRUBIN,DIRECT 0.2 MG/DL (<0.4); BILIRUBIN,TOTAL 0.6 MG/DL (0.3-1.2); BLOOD, URINE BLOOD NEGATIVE (NEGATIVE); CALCIUM LEVEL 9.6 MG/DL (8.3-10.6); COLOR, URINE STRAW (YELLOW); CREATININE FOR GFR 1.78 MG/DL (0.70-1.30); GLOMERULAR FILTRATION RATE 40.8 (>49); GLUCOSE, URINE (UA) AUTO NEGATIVE (NEGATIVE); KETONE, URINE AUTO NEGATIVE (NEGATIVE); LEUKOCYTE ESTERASE, URINE AUTO NEGATIVE (NEGATIVE); MAGNESIUM LEVEL 1.6 MG/DL (1.8-2.4); NITRITE, URINE AUTO NEGATIVE (NEGATIVE); PHOSPHORUS LEVEL 3.9 MG/DL (2.4-5.1); POTASSIUM SERUM 4.1 MMOL/L (3.5-5.1); PROTEIN, URINE AUTO NEGATIVE (NEGATIVE); RBC, URINE AUTO 0 /HPF (0-3); SPECIFIC GRAVITY URINE AUTO 1.004 (1.002-1.035); SQUAMOUS EPITHELIAL CELL UR AU 0 /HPF (0-6); TOTAL PROTEIN 6.3 G/DL (5.7-8.2); UROBILINOGEN, URINE AUTO 0.2 mg/dL (0.0-2.0); WBC, URINE AUTO 1 /HPF (0-3)
[2024-03-18 10:57] LABS: TOTAL PROTEIN,RANDOM URINE 16.9 MG/DL (0.0-14.0)
[2024-03-18 11:03] LABS: CREATININE,RANDOM URINE 51.9 MG/DL
[2024-03-21 08:48] LABS: CMV QUANT DNA PCR (PLASMA) Not Detected; CMV SOURCE Whole Blood; log10 CMV QN DNA P1 Not Detected log IU/mL
== END ==
LOC: M PLALAB 07:29
PROVIDERS: ATTEND Internal Medicine Nephrology
DX: Z94.0 Kidney transplant status (principal); D84.9 Immunodeficiency, unspecified; Z79.899 Other long term (current) drug therapy

== ENCOUNTER 2024-04-01 09:14 | Outpatient (CLI) | payer MEDICARE, MEDICAID ==
[~2024-04-01] VITALS: Ht 167.6 cm; Wt 80.0 kg
[2024-04-01 09:30] VITALS: BP 125/78; O2SAT 98
[2024-04-01] MEDS: BELATACEPT IV ONE (10:06)
[2024-04-01] MEDS: NS IV ONE (10:06)
[2024-04-01 10:40] VITALS: BP 124/79; O2SAT 100
== END 2024-04-01 10:45 ==
LOC: M INFU 09:14
PROVIDERS: ATTEND Nurse Practitioner Family
DX: Z94.0 Kidney transplant status (principal); Z91.048 Other nonmedicinal substance allergy status
CPT/HCPCS: 96365; J0485

== ENCOUNTER → 2024-04-21 | Outpatient (CLI) | payer MEDICARE, MEDICAID ==
[2024-04-21 12:08] LABS: APPEARANCE, URINE CLEAR (CLEAR); BACTERIA, URINE AUTO 1+ (NEGATIVE); BILIRUBIN, URINE AUTO NEGATIVE (NEGATIVE); BLOOD, URINE BLOOD NEGATIVE (NEGATIVE); COLOR, URINE STRAW (YELLOW); GLUCOSE, URINE (UA) AUTO NEGATIVE (NEGATIVE); KETONE, URINE AUTO NEGATIVE (NEGATIVE); LEUKOCYTE ESTERASE, URINE AUTO NEGATIVE (NEGATIVE); NITRITE, URINE AUTO NEGATIVE (NEGATIVE); PROTEIN, URINE AUTO NEGATIVE (NEGATIVE); RBC, URINE AUTO 0 /HPF (0-3); SPECIFIC GRAVITY URINE AUTO 1.005 (1.002-1.035); SQUAMOUS EPITHELIAL CELL UR AU 1 /HPF (0-6); UROBILINOGEN, URINE AUTO 0.2 mg/dL (0.0-2.0); WBC, URINE AUTO 1 /HPF (0-3)
[2024-04-21 12:09] LABS: BASO # 0.1 10^3/uL (0.0-0.2); BASO % 0.6 % (0.0-1.0); EOS # 0.1 10^3/uL (0.0-0.5); EOS % 0.9 % (0.0-3.0); HEMATOCRIT 48.4 % (42.0-52.0); LYMPH # 2.6 10^3/uL (1.5-5.0); LYMPH % 30.3 % (24.0-44.0); MEAN CORPUSCULAR HEMOGLOBIN 32.6 pg (27.0-33.0); MEAN CORPUSCULAR HGB CONC 33.1 g/dl (32.0-36.5); MEAN CORPUSCULAR VOLUME 98.6 fl (80.0-96.0); MONO # 0.6 10^3/uL (0.0-0.8); MONO % 6.8 % (2.0-8.0); NEUTROPHILS # 5.1 10^3/uL (1.5-8.5); NEUTROPHILS % 60.9 % (36.0-66.0); PLATELET COUNT, AUTOMATED 248 10^3/uL (150-450); RED BLOOD COUNT 4.91 10^6/uL (4.30-6.10); WHITE BLOOD COUNT 8.4 10^3/uL (4.0-10.0)
[2024-04-21 12:36] LABS: TOTAL PROTEIN,RANDOM URINE 8.8 MG/DL (0.0-14.0)
[2024-04-21 12:41] LABS: CREATININE,RANDOM URINE 59.8 MG/DL
[2024-04-21 12:44] LABS: ALBUMIN 3.9 G/DL (3.2-5.2); BILIRUBIN,DIRECT 0.3 MG/DL (<0.4); BILIRUBIN,TOTAL 0.7 MG/DL (0.3-1.2); CALCIUM LEVEL 9.6 MG/DL (8.3-10.6); CREATININE FOR GFR 2.11 MG/DL (0.70-1.30); GLOMERULAR FILTRATION RATE 33.5 (>49); PHOSPHORUS LEVEL 3.9 MG/DL (2.4-5.1); POTASSIUM SERUM 4.6 MMOL/L (3.5-5.1); TOTAL PROTEIN 6.5 G/DL (5.7-8.2)
[2024-04-24 12:37] LABS: BK VIRUS DNA SOURCE Plasma; BKV DNA QUANT PCR PLASMA Not Detected copies/mL; log10 BKV DNA PLASMA Not Detected Log cps/mL
[2024-04-24 15:12] LABS: CMV QUANT DNA PCR (PLASMA) Not Detected; CMV SOURCE Whole Blood; log10 CMV QN DNA P1 Not Detected log IU/mL
== END ==
LOC: M PLALAB 07:20
PROVIDERS: ATTEND Nurse Practitioner Family
DX: N18.5 Chronic kidney disease, stage 5 (principal); D84.9 Immunodeficiency, unspecified; Z94.0 Kidney transplant status; Z79.899 Other long term (current) drug therapy

== ENCOUNTER 2024-04-29 09:30 | Outpatient (CLI) | payer MEDICARE, MEDICAID ==
[~2024-04-29] VITALS: Ht 167.6 cm; Wt 80.0 kg
[2024-04-29 09:25] VITALS: BP 120/80; O2SAT 100
[2024-04-29] MEDS: NS IV ONE (10:33)
[2024-04-29] MEDS: BELATACEPT IV ONE (10:33)
[2024-04-29 11:13] VITALS: BP 119/76; O2SAT 98
== END 2024-04-29 11:13 ==
LOC: M INFU 09:30
PROVIDERS: ATTEND Nurse Practitioner Family
DX: Z94.0 Kidney transplant status (principal); Z91.048 Other nonmedicinal substance allergy status
CPT/HCPCS: 96365; J0485

== ENCOUNTER → 2024-05-07 | Outpatient (CLI) | payer MEDICARE, MEDICAID ==
[2024-05-07 10:22] LABS: HEMOGLOBIN 14.9 g/dl (13.5-17.5); MEAN CORPUSCULAR HEMOGLOBIN 33.1 pg (27.0-33.0); MEAN CORPUSCULAR HGB CONC 33.1 g/dl (32.0-36.5); PLATELET COUNT, AUTOMATED 252 10^3/uL (150-450); WHITE BLOOD COUNT 9.5 10^3/uL (4.0-10.0)
[2024-05-07 10:43] LABS: ALBUMIN 3.6 G/DL (3.2-5.2); BILIRUBIN,DIRECT 0.3 MG/DL (<0.4); BILIRUBIN,TOTAL 0.6 MG/DL (0.3-1.2); CALCIUM LEVEL 9.4 MG/DL (8.3-10.6); CHOLESTEROL RISK RATIO 3.06 (<5); CREATININE FOR GFR 2.26 MG/DL (0.70-1.30); HDL CHOLESTEROL 38.5 MG/DL (>40); LDL CHOLESTEROL 53.7 MG/DL (<100); NON-HDL-C 79.5 MG/DL; PHOSPHORUS LEVEL 3.6 MG/DL (2.4-5.1); POTASSIUM SERUM 4.4 MMOL/L (3.5-5.1); PSA SCREENING 2.15 NG/ML (< 4.00); TOTAL PROTEIN 6.2 G/DL (5.7-8.2)
== END ==
LOC: M PLALAB 08:55
PROVIDERS: ATTEND Student in an Organized Health Care Education/Training Program
DX: Z00.00 Encounter for general adult medical examination without abnormal findings (principal); Z79.899 Other long term (current) drug therapy; Z12.5 Encounter for screening for malignant neoplasm of prostate

== ENCOUNTER 2024-05-27 09:50 | Outpatient (CLI) | payer MEDICARE, MEDICAID ==
[2024-05-27 09:50] VITALS: BP 129/74; O2SAT 100
[2024-05-27] MEDS: BELATACEPT IV ONE (10:17)
[2024-05-27] MEDS: NS IV ONE (10:17)
[2024-05-27 10:50] VITALS: BP 127/83; O2SAT 99
== END 2024-05-27 10:51 ==
LOC: M INFU 09:50
PROVIDERS: ATTEND Nurse Practitioner Family
DX: Z94.0 Kidney transplant status (principal); Z91.048 Other nonmedicinal substance allergy status
CPT/HCPCS: 96365; J0485

== ENCOUNTER 2024-06-24 09:50 | Outpatient (CLI) | payer MEDICARE, MEDICAID ==
[~2024-06-24] VITALS: Ht 167.6 cm; Wt 80.0 kg
[2024-06-24 10:06] VITALS: BP 127/79; O2SAT 97
[2024-06-24] MEDS: BELATACEPT IV ONE (10:28)
[2024-06-24] MEDS: NS IV ONE (10:28)
[2024-06-24 11:06] VITALS: BP 154/80; O2SAT 96
== END 2024-06-24 11:05 ==
LOC: M INFU 09:50
PROVIDERS: ATTEND Nurse Practitioner Family
DX: Z94.0 Kidney transplant status (principal); Z91.048 Other nonmedicinal substance allergy status
CPT/HCPCS: 96365; 99490; J0485

== ENCOUNTER → 2024-07-21 | Outpatient (CLI) | payer MEDICARE, MEDICAID ==
[2024-07-21 10:51] LABS: APPEARANCE, URINE CLEAR (CLEAR); BACTERIA, URINE AUTO NEGATIVE (NEGATIVE); BILIRUBIN, URINE AUTO NEGATIVE (NEGATIVE); BLOOD, URINE BLOOD NEGATIVE (NEGATIVE); COLOR, URINE STRAW (YELLOW); GLUCOSE, URINE (UA) AUTO NEGATIVE (NEGATIVE); KETONE, URINE AUTO NEGATIVE (NEGATIVE); LEUKOCYTE ESTERASE, URINE AUTO NEGATIVE (NEGATIVE); NITRITE, URINE AUTO NEGATIVE (NEGATIVE); PROTEIN, URINE AUTO NEGATIVE (NEGATIVE); RBC, URINE AUTO 0 /HPF (0-3); SPECIFIC GRAVITY URINE AUTO 1.004 (1.002-1.035); SQUAMOUS EPITHELIAL CELL UR AU 1 /HPF (0-6); UROBILINOGEN, URINE AUTO 0.2 mg/dL (0.0-2.0); WBC, URINE AUTO 0 /HPF (0-3)
[2024-07-21 11:05] LABS: BASO # 0.1 10^3/uL (0.0-0.2); BASO % 0.7 % (0.0-1.0); EOS % 0.5 % (0.0-3.0); HEMATOCRIT 45.3 % (42.0-52.0); HEMOGLOBIN 14.9 g/dl (13.5-17.5); LYMPH # 2.6 10^3/uL (1.5-5.0); LYMPH % 35.6 % (24.0-44.0); MEAN CORPUSCULAR HEMOGLOBIN 32.6 pg (27.0-33.0); MEAN CORPUSCULAR HGB CONC 32.9 g/dl (32.0-36.5); MEAN CORPUSCULAR VOLUME 99.1 fl (80.0-96.0); MONO # 0.6 10^3/uL (0.0-0.8); NEUTROPHILS % 54.8 % (36.0-66.0); PLATELET COUNT, AUTOMATED 238 10^3/uL (150-450); RED BLOOD COUNT 4.57 10^6/uL (4.30-6.10); WHITE BLOOD COUNT 7.3 10^3/uL (4.0-10.0)
[2024-07-21 11:14] LABS: TOTAL PROTEIN,RANDOM URINE 8.7 MG/DL (0.0-14.0)
[2024-07-21 11:19] LABS: CREATININE,RANDOM URINE 35.1 MG/DL
[2024-07-21 11:21] LABS: ALBUMIN 3.6 G/DL (3.2-5.2); BILIRUBIN,DIRECT 0.2 MG/DL (<0.4); BILIRUBIN,TOTAL 0.5 MG/DL (0.3-1.2); CALCIUM LEVEL 9.4 MG/DL (8.3-10.6); CREATININE FOR GFR 1.81 MG/DL (0.70-1.30); MAGNESIUM LEVEL 2.3 MG/DL (1.8-2.4); PHOSPHORUS LEVEL 3.1 MG/DL (2.4-5.1); POTASSIUM SERUM 4.3 MMOL/L (3.5-5.1); TOTAL PROTEIN 6.5 G/DL (5.7-8.2)
[2024-07-24 10:48] LABS: CMV QUANT DNA PCR (PLASMA) Not Detected; CMV SOURCE Whole Blood; log10 CMV QN DNA P1 Not Detected log IU/mL
[2024-07-24 16:58] LABS: BK VIRUS DNA SOURCE Plasma; BKV DNA QUANT PCR PLASMA Not Detected copies/mL; log10 BKV DNA PLASMA Not Detected Log cps/mL
== END ==
LOC: M PLALAB 08:17
PROVIDERS: ATTEND Nurse Practitioner Family
DX: Z94.0 Kidney transplant status (principal); Z79.899 Other long term (current) drug therapy; D84.9 Immunodeficiency, unspecified; N18.5 Chronic kidney disease, stage 5

== ENCOUNTER 2024-07-22 10:00 | Outpatient (CLI) | payer MEDICARE, MEDICAID ==
[~2024-07-22] VITALS: Ht 167.6 cm; Wt 79.5 kg
[2024-07-22 10:00] VITALS: BP 132/71; O2SAT 97
[2024-07-22] MEDS: NS IV ONE (10:59)
[2024-07-22] MEDS: BELATACEPT IV ONE (10:59)
[2024-07-22 11:30] VITALS: BP 133/78; O2SAT 98
== END 2024-07-22 11:40 ==
LOC: M INFU 10:00
PROVIDERS: ATTEND Nurse Practitioner Family
DX: Z94.0 Kidney transplant status (principal); Z91.048 Other nonmedicinal substance allergy status
CPT/HCPCS: 96365; J0485

== ENCOUNTER 2024-08-19 10:00 | Outpatient (CLI) | payer MEDICARE, MEDICAID ==
[~2024-08-19] VITALS: Ht 167.6 cm; Wt 79.5 kg
[2024-08-19 10:11] VITALS: BP 98/63; O2SAT 95
[2024-08-19] MEDS: NS IV ONE (10:31)
[2024-08-19] MEDS: BELATACEPT IV ONE (10:31)
[2024-08-19 11:10] VITALS: BP 115/60; O2SAT 96
== END 2024-08-19 11:15 ==
LOC: M INFU 10:00
PROVIDERS: ATTEND Nurse Practitioner Family
DX: Z94.0 Kidney transplant status (principal); Z91.048 Other nonmedicinal substance allergy status
CPT/HCPCS: 96365; J0485

== ENCOUNTER 2024-09-16 10:13 | Outpatient (CLI) | payer MEDICARE, MEDICAID ==
[~2024-09-16] VITALS: Ht 167.6 cm; Wt 80.0 kg
[2024-09-16 10:30] VITALS: BP 136/68; O2SAT 96
[2024-09-16] MEDS: NS IV ONE (11:20)
[2024-09-16] MEDS: BELATACEPT IV ONE (11:20)
== END 2024-09-16 11:55 ==
LOC: M INFU 10:13
PROVIDERS: ATTEND Nurse Practitioner Family
DX: Z94.0 Kidney transplant status (principal); Z91.048 Other nonmedicinal substance allergy status
CPT/HCPCS: 96365; J0485

== ENCOUNTER 2024-10-14 10:51 | Outpatient (CLI) | payer MEDICARE, MEDICAID ==
[~2024-10-14] VITALS: Ht 167.6 cm; Wt 80.0 kg
[2024-10-14 11:00] VITALS: BP 134/81; O2SAT 98
[2024-10-14] MEDS: NS IV ONE (11:35)
[2024-10-14] MEDS: BELATACEPT IV ONE (11:35)
[2024-10-14 12:10] VITALS: BP 121/78; O2SAT 95
== END 2024-10-14 12:13 ==
LOC: M INFU 10:51
PROVIDERS: ATTEND Nurse Practitioner Family
DX: Z94.0 Kidney transplant status (principal); Z91.048 Other nonmedicinal substance allergy status
CPT/HCPCS: 96365; J0485

== ENCOUNTER 2024-11-25 08:18 | Outpatient (CLI) | payer MEDICARE, MEDICAID ==
[~2024-11-25] VITALS: Ht 167.6 cm; Wt 79.0 kg
[2024-11-25 08:25] VITALS: BP 162/87; O2SAT 98
[2024-11-25] MEDS: NS IV ONE (08:45)
[2024-11-25] MEDS: BELATACEPT IV ONE (08:45)
[2024-11-25 09:21] VITALS: BP 155/89; O2SAT 97
== END 2024-11-25 09:25 ==
LOC: M INFU 08:18
PROVIDERS: ATTEND Internal Medicine Nephrology
DX: Z94.0 Kidney transplant status (principal); Z91.048 Other nonmedicinal substance allergy status
CPT/HCPCS: 96365; J0485

== ENCOUNTER 2024-12-26 10:50 | Outpatient (CLI) | payer MEDICARE, MEDICAID ==
[~2024-12-26] VITALS: Ht 167.6 cm; Wt 80.0 kg
[2024-12-26 10:50] VITALS: BP 134/72; O2SAT 100
[2024-12-26] MEDS: BELATACEPT IV ONE (11:41)
[2024-12-26] MEDS: NS IV ONE (11:41)
[2024-12-26 12:50] VITALS: BP 138/88; O2SAT 98
== END 2024-12-26 12:50 ==
LOC: M INFU 10:50
PROVIDERS: ATTEND Internal Medicine Nephrology
DX: Z94.0 Kidney transplant status (principal)
CPT/HCPCS: 96365; J0485

== ENCOUNTER → 2025-01-05 | Outpatient (CLI) | payer MEDICARE, MEDICAID ==
[2025-01-05 15:17] LABS: BASO # 0.1 10^3/uL (0.0-0.2); BASO % 0.6 % (0.0-1.0); EOS # 0.1 10^3/uL (0.0-0.5); EOS % 0.6 % (0.0-3.0); HEMATOCRIT 45.3 % (42.0-52.0); HEMOGLOBIN 14.6 g/dl (13.5-17.5); LYMPH # 3.7 10^3/uL (1.5-5.0); LYMPH % 39.9 % (24.0-44.0); MEAN CORPUSCULAR HEMOGLOBIN 32.9 pg (27.0-33.0); MEAN CORPUSCULAR HGB CONC 32.2 g/dl (32.0-36.5); MONO # 0.6 10^3/uL (0.0-0.8); MONO % 6.4 % (2.0-8.0); NEUTROPHILS # 4.8 10^3/uL (1.5-8.5); NEUTROPHILS % 52.1 % (36.0-66.0); PLATELET COUNT, AUTOMATED 242 10^3/uL (150-450); RED BLOOD COUNT 4.44 10^6/uL (4.30-6.10); WHITE BLOOD COUNT 9.2 10^3/uL (4.0-10.0)
[2025-01-05 15:23] LABS: APPEARANCE, URINE CLEAR (CLEAR); BACTERIA, URINE AUTO NEGATIVE (NEGATIVE); BILIRUBIN, URINE AUTO NEGATIVE (NEGATIVE); BLOOD, URINE BLOOD NEGATIVE (NEGATIVE); COLOR, URINE STRAW (YELLOW); GLUCOSE, URINE (UA) AUTO NEGATIVE (NEGATIVE); KETONE, URINE AUTO NEGATIVE (NEGATIVE); LEUKOCYTE ESTERASE, URINE AUTO NEGATIVE (NEGATIVE); MUCUS, URINE SMALL (NEGATIVE); NITRITE, URINE AUTO NEGATIVE (NEGATIVE); PROTEIN, URINE AUTO NEGATIVE (NEGATIVE); RBC, URINE AUTO 0 /HPF (0-3); SPECIFIC GRAVITY URINE AUTO 1.003 (1.002-1.035); SQUAMOUS EPITHELIAL CELL UR AU 0 /HPF (0-6); UROBILINOGEN, URINE AUTO 0.2 mg/dL (0.0-2.0); WBC, URINE AUTO 0 /HPF (0-3)
[2025-01-05 15:24] LABS: BILIRUBIN,TOTAL 0.7 MG/DL (0.3-1.2); CALCIUM LEVEL 9.3 MG/DL (8.3-10.6); CREATININE FOR GFR 1.89 MG/DL (0.70-1.30); GLOMERULAR FILTRATION RATE 38.2 (>49); MAGNESIUM LEVEL 2.1 MG/DL (1.8-2.4); PHOSPHORUS LEVEL 4.6 MG/DL (2.4-5.1); POTASSIUM SERUM 4.5 MMOL/L (3.5-5.1); TOTAL PROTEIN 6.7 G/DL (5.7-8.2)
[2025-01-05 15:46] LABS: CREATININE,RANDOM URINE 29.4 MG/DL
[2025-01-05 15:53] LABS: TOTAL PROTEIN,RANDOM URINE < 6.0 MG/DL (0.0-14.0)
== END ==
LOC: M PLALAB 11:18
PROVIDERS: ATTEND Nurse Practitioner Family
DX: Z94.0 Kidney transplant status (principal); N18.5 Chronic kidney disease, stage 5; D84.9 Immunodeficiency, unspecified; Z79.899 Other long term (current) drug therapy

== ENCOUNTER → 2025-01-20 | Outpatient (CLI) | payer MEDICARE, MEDICAID ==
[~2025-01-20] VITALS: Ht 167.6 cm; Wt 79.1 kg
[~2025-01-20] MED LIST changes: -FLOM0.4C39 PO; +TAMS-18 PO
[2025-01-20 08:27] VITALS: BP 145/65; O2SAT 96
[2025-01-20] MEDS: NS IV ONE (09:54)
[2025-01-20] MEDS: BELATACEPT IV ONE (09:54)
[2025-01-20 10:38] VITALS: BP 126/77; O2SAT 95
== END ==
LOC: M INFU 08:13
PROVIDERS: ATTEND Internal Medicine Nephrology
DX: Z94.0 Kidney transplant status (principal); Z91.048 Other nonmedicinal substance allergy status
CPT/HCPCS: 96365; J0485

== ENCOUNTER 2025-04-14 08:43 | Outpatient (CLI) | payer MEDICARE, MEDICAID ==
[~2025-04-14] VITALS: Ht 167.6 cm; Wt 78.6 kg
[2025-04-14 08:50] VITALS: BP 113/79; O2SAT 97
[2025-04-14] MEDS: NS IV ONE (09:17)
[2025-04-14] MEDS: BELATACEPT IV ONE (09:17)
[2025-04-14 10:01] VITALS: BP 122/74; O2SAT 97
== END 2025-04-14 10:02 ==
LOC: M INFU 08:43
PROVIDERS: ATTEND Internal Medicine Nephrology
DX: Z94.0 Kidney transplant status (principal); Z91.048 Other nonmedicinal substance allergy status
CPT/HCPCS: 96365; J0485

== ENCOUNTER 2025-05-12 10:00 | Outpatient (CLI) | payer MEDICARE, MEDICAID ==
[~2025-05-12] VITALS: Ht 167.6 cm; Wt 78.1 kg
[2025-05-12 10:05] VITALS: BP 129/78; O2SAT 98
[2025-05-12] MEDS: NS IV ONE (10:42)
[2025-05-12] MEDS: BELATACEPT IV ONE (10:42)
[2025-05-12 11:20] VITALS: BP 139/75; O2SAT 97
== END 2025-05-12 11:25 | disposition home or self-care (01) ==
LOC: M INFU 10:00
PROVIDERS: ATTEND Internal Medicine Nephrology
DX: Z94.0 Kidney transplant status (principal)
CPT/HCPCS: 96365; J0485

== ENCOUNTER → 2025-05-19 | Outpatient (CLI) | payer MEDICARE, MEDICAID ==
[2025-05-19 15:53] LABS: BASO # 0.1 10^3/uL (0.0-0.2); BASO % 0.5 % (0.0-1.0); EOS # 0.1 10^3/uL (0.0-0.5); EOS % 0.5 % (0.0-3.0); LYMPH # 2.3 10^3/uL (1.5-5.0); LYMPH % 24.8 % (24.0-44.0); MONO # 0.8 10^3/uL (0.0-0.8); MONO % 8.4 % (2.0-8.0); NEUTROPHILS # 6.1 10^3/uL (1.5-8.5); NEUTROPHILS % 65.4 % (36.0-66.0); PLATELET COUNT, AUTOMATED 255 10^3/uL (150-450)
[2025-05-19 16:21] LABS: CREATININE, URINE 193.4 MG/DL
[2025-05-19 16:46] LABS: ALT/SGPT 24.0 U/L (7.0-40); AST/SGOT 17.0 U/L (<34); CALCIUM LEVEL 9.7 MG/DL (8.3-10.6); CARBON DIOXIDE LEVEL 26.0 MMOL/L (20-31); CHLORIDE LEVEL 113.0 MMOL/L (98-107); CHOLESTEROL LEVEL 110.0 MG/DL (<200); CHOLESTEROL RISK RATIO 2.64 (<5); CREATININE FOR GFR 1.96 MG/DL (0.70-1.30); GLOMERULAR FILTRATION RATE 36.6 (>49); LDL CHOLESTEROL 37.2 MG/DL (<100); NON-HDL-C 68.4 MG/DL; PHOSPHORUS LEVEL 3.7 MG/DL (2.4-5.1); POTASSIUM SERUM 4.8 MMOL/L (3.5-5.1); SODIUM LEVEL 148.0 MMOL/L (136-145); TRIGLYCERIDES LEVEL 156.0 MG/DL (<150)
[2025-05-19 17:20] LABS: MALB URINE SIEMENS 87.0 MG/L; MAU/CREAT RATIO 44.9 MCG/MG (0.0-30.0)
[2025-05-19 17:41] LABS: ESTIMATED AVERAGE GLUCOSE 111.0 MG/DL (60-110)
== END ==
LOC: M PLALAB 09:59
PROVIDERS: ATTEND Student in an Organized Health Care Education/Training Program
DX: Z00.00 Encounter for general adult medical examination without abnormal findings (principal); Z94.0 Kidney transplant status; Z79.899 Other long term (current) drug therapy

== ENCOUNTER → 2025-05-25 | Outpatient (REF) | payer MEDICARE, MEDICAID | LOC: M LAB REF 17:05 | PROVIDERS: ATTEND Internal Medicine Nephrology | DX: N39.0 Urinary tract infection, site not specified (principal) ==

== ENCOUNTER 2025-07-07 09:59 | Outpatient (CLI) | payer MEDICARE, MEDICAID ==
[~2025-07-07] VITALS: Ht 167.6 cm; Wt 77.7 kg
[2025-07-07 10:35] VITALS: BP 125/71; O2SAT 99
[2025-07-07] MEDS: NS IV ONE (11:25)
[2025-07-07] MEDS: BELATACEPT IV ONE (11:25)
[2025-07-07 12:00] VITALS: BP 119/73; O2SAT 96
== END 2025-07-07 12:00 | disposition home or self-care (01) ==
LOC: M INFU 09:59
PROVIDERS: ATTEND Internal Medicine Nephrology
DX: Z94.0 Kidney transplant status (principal); Z91.048 Other nonmedicinal substance allergy status
CPT/HCPCS: 96365; J0485

== ENCOUNTER → 2025-07-09 | Outpatient (CLI) | payer MEDICARE, MEDICAID | LOC: M RAD 07:45 | PROVIDERS: ATTEND Family Medicine | DX: Z13.6 Encounter for screening for cardiovascular disorders (principal); Z87.891 Personal history of nicotine dependence ==

== ENCOUNTER 2025-08-04 09:59 | Outpatient (CLI) | payer MEDICARE, MEDICAID ==
[~2025-08-04] VITALS: Ht 167.6 cm; Wt 78.0 kg
[2025-08-04 10:00] VITALS: BP 127/77; O2SAT 96
[2025-08-04 10:15] VITALS: BP 127/77; O2SAT 96
[2025-08-04] MEDS: BELATACEPT IV ONE (10:44)
[2025-08-04] MEDS: NS IV ONE (10:44)
[2025-08-04 11:20] VITALS: BP 125/72; O2SAT 98
== END 2025-08-04 11:20 | disposition home or self-care (01) ==
LOC: M INFU 09:59
PROVIDERS: ATTEND Internal Medicine Nephrology
DX: Z94.0 Kidney transplant status (principal); Z91.048 Other nonmedicinal substance allergy status
CPT/HCPCS: 96365; J0485

== ENCOUNTER 2025-09-01 10:04 | Outpatient (CLI) | payer MEDICARE, MEDICAID ==
[~2025-09-01] VITALS: Ht 167.6 cm; Wt 77.7 kg
[2025-09-01 10:21] VITALS: BP 128/65; O2SAT 98
[2025-09-01] MEDS: BELATACEPT IV ONE (10:52)
[2025-09-01] MEDS: NS IV ONE (10:52)
[2025-09-01 11:29] VITALS: BP 125/77; O2SAT 97
== END 2025-09-01 11:30 | disposition home or self-care (01) ==
LOC: M INFU 10:04
PROVIDERS: ATTEND Internal Medicine Nephrology
DX: Z94.0 Kidney transplant status (principal); Z91.048 Other nonmedicinal substance allergy status
CPT/HCPCS: 96365; J0485